=== PATIENT | female | born 1965 | race African-American/Black ===

== ENCOUNTER 2020-01-05 18:57 | Inpatient (IN) | payer OTHER, SELFPAY ==
[2020-01-05] MEDS ORDERED: Ibuprofen 200 MG TAB ONE (19:57)
[2020-01-05] MEDS ORDERED: Ondansetron ODT 4 MG TAB PO PRN (20:31)
--- NOTE | 2020-01-05 23:00 | PDOC.BPN ---
- Brief Progress Note [id number] dictated
[2020-01-05 23:06] VITALS: BMI 29.5
--- NOTE | 2020-01-06 02:11 | HP ---
CHIEF COMPLAINT: Lower abdominal pain. HISTORY OF PRESENT ILLNESS: Ms. Olvera is a 54-year-old female with past medical history of hyperparathyroidism, presents on outside facility with lower abdominal pain. On workup in the emergency room, the patient had leukocytosis and urinary tract infection. The patient also was found to have elevated calcium level of . Septic workup done in the ED. She was given IV ceftriaxone. Started on IV fluids. The patient is being transferred to our medical facility for further management. PAST MEDICAL HISTORY: 1. Hyperparathyroidism. 2. Hypertension. PAST SURGICAL HISTORY: 1. Fibrosed tumor removed two times. 2. Hysterectomy. SOCIAL HISTORY: Denies smoking, alcohol drinking, or drug abuse. FAMILY HISTORY: Reviewed and noncontributory. HOME MEDICATIONS: See home medication reconciliation form for updated medications. ALLERGIES: NO KNOWN ALLERGIES. REVIEW OF SYSTEMS: Review of 14 systems is negative except what is mentioned in history of present illness. PHYSICAL EXAMINATION: GENERAL: The patient is awake, alert, in mild distress. VITAL SIGNS: Blood pressure 134/73, pulse is 120, respiratory rate is 24, temperature 98.5, and oxygen saturation 97% on room air. HEAD AND NECK: Normocephalic, atraumatic. Neck is supple. No JVD. CHEST: Fair bilateral air entry. HEART: S1, S2. Regular, tachycardic. ABDOMEN: Soft. Lower abdominal tenderness. Bowel sounds present. NEUROLOGIC: Awake, alert, and oriented x3. PSYCH: Unable to assess. EXTREMITIES: No clubbing or cyanosis. GENITOURINARY: Positive for suprapubic tenderness. LABORATORY DATA: WBC count 17.3, hemoglobin 10.8, platelets 403. Sodium 141, potassium 4.1, BUN 30, creatinine 3.3, calcium is . ASSESSMENT: 1. Acute urinary tract infection. 2. Hypercalcemia. 3. Hyperparathyroidism. 4. Acute kidney injury/acute renal failure. 5. Hypertension. 6. Tachycardia. PLAN: 1. Admit. 2. Septic workup and clear urine cultures. 3. IV antibiotic. 4. IV fluids. 5. Monitor electrolytes and calcium. 6. Monitor kidney function and urine output. 7. Consider Nephrology consultation in a.m. for evaluation and further management if creatinine remains elevated. 8. Reconcile home medications. 9. DVT prophylaxis as appropriate. 10. Expected length of stay, 2 midnights or more. Job ID: [id number]
[2020-01-06] MEDS: Sodium Chloride 0.9% 1,000 ML IV SCH ×4 (03:19→14:57)
[2020-01-06 05:30] LABS: #Eosinphils 0.1 thou/uL (0.0-0.7); #Lymphocytes 2.5 thou/uL (1.20-3.40); #Monocytes 1.3 thou/uL (0.11-0.59); #Neutrophils 10.8 thou/uL (1.40-6.50); %Basophils 0.1 % (0.0-1.0); %Eosinophils 0.8 % (0.0-10.0); %Monocytes 8.6 % (0.0-10.0); %Neutrophils 73.4 % (42.0-75.0); Hemoglobin 9.6 g/dL (12.0-16.0); Mean Corpuscular HGB CONC 30.3 g/dL (32.0-36.0); Mean Corpuscular Hemoglobin 26.9 pg (27.0-31.0); Mean Corpuscular Volume 88.9 fL (78.0-98.0); Platelet Count 355 thou/uL (130-400); RBC Distribution Width 14.8 % (11.5-14.5); Red Blood Cell (RBC) Count 3.58 mill/uL (4.20-5.40); White Blood Cell (WBC) Count 14.7 thou/uL (4.8-10.8)
[2020-01-06 05:53] LABS: ALT (SGPT) 8 U/L (8-55); AST (SGOT) 12 U/L (5-34); Albumin 3.3 g/dL (3.5-5.0); Alkaline Phosphatase 76 U/L (40-110); Anion Gap 13 mmol/L (10-20); BUN (Urea Nitrogen) 29 mg/dL (9.8-20.1); Bilirubin, Total 0.2 mg/dL (0.2-1.2); Calc. Creatinine Clearance 24 mL/min (70-130); Calcium 11.5 mg/dL (7.8-10.44); Carbon Dioxide 18 mmol/L (22-29); Chloride 119 mmol/L (98-107); Globulin 4.2 g/dL (2.4-3.5); Glucose 115 mg/dL (70-105); Potassium 4.9 mmol/L (3.5-5.1); Protein, Total 7.5 g/dL (6.0-8.3); Sodium 145 mmol/L (136-145)
[2020-01-06] MEDS: cefTRIAXone\\ROCEPHIN 2 GM in Sodium Chloride 0.9% 100 ML IVPB SCH (09:19)
[2020-01-06 09:35] LABS: SARS-CoV-2 MS2 Positive; SARS-CoV-2 N Gene Negative; SARS-CoV-2 S Gene Negative; SARS-CoV-2 by NAA Not Detected (NotDetected); SARS-CoV-2 orf1ab Negative
[2020-01-06 10:11] LABS: Creatinine, Urine 28.7 mg/dL (47-110)
--- NOTE | 2020-01-06 11:06 | ULT ---
Exam: Bilateral renal ultrasound complete: HISTORY: Acute kidney insufficiency COMPARISON: None I FINDINGS: Right kidney: 16.2 x 8.7 x 9.5 cm Left kidney: 13.0 x 7.1 x 8.9 cm Severe bilateral renal hydronephrosis. There is generalized renal cortical thinning and increased cortical echogenicity evidence for nonspec ific chronic renal disease. No solid or cystic renal mass. Unremarkable appearing bladder. IMPRESSION: Marked bilateral renal hydronephrosis with generalized renal cortical thinning and nonspecific increa sed cortical echogenicity.
--- NOTE | 2020-01-06 15:22 | CON ---
DATE OF CONSULTATION: 01/06/2020 SERVICE: Nephrology. REASON FOR CONSULTATION: Hypercalcemia and acute renal failure. REQUESTING PHYSICIAN: Ean Little MD CHIEF COMPLAINT: Lower abdominal pain. HISTORY OF PRESENT ILLNESS: A 54-year-old female with known history of hypertension and hyperparathyroidism, who was admitted due to lower abdominal pain associated with this dysuria and increased urinary frequency. Evaluation in the emergency room showed leukocytosis as well as features of UTI, hence the patient was admitted. She also was found to have hypercalcemia and elevated creatinine necessitating Nephrology consult. There was no history of fever, nausea, or vomiting. The patient also was tachycardic on presentation and was resuscitated with 2 L of normal saline. PAST MEDICAL HISTORY: 1. Hyperparathyroidism. 2. Hypercalcemia. 3. Hypertension. 4. Fibroids. PAST SURGICAL HISTORY: 1. Hysterectomy. 2. Fibroidectomy. FAMILY HISTORY: Significant for hypertension in mother and sister. SOCIAL HISTORY: The patient lives with family. Denied smoking, alcohol, or drug abuse. ALLERGIES: NO KNOWN DRUG ALLERGIES REPORTED. MEDICATIONS: Prior to hospital, medications are as follows; 1. Calcium carbonate 600 mg p.o. daily. 2. Meloxicam 50 mg p.o. daily. 3. Amlodipine 10 mg daily. REVIEW OF SYSTEMS: Twelve-point review of system performed was negative other than pertinent positives and negatives included in the History of Present Illness. PHYSICAL EXAMINATION: VITAL SIGNS: Temperature 98.1, pulse 110, respiratory rate 26, SpO2 of 99% on room air, and blood pressure is 127/67. GENERAL: Comfortable middle-aged female, in no obvious distress. Afebrile. Anicteric. Acyanotic. HEENT: Normocephalic, atraumatic. Oral mucosa is moist. CARDIOVASCULAR: Regular rhythm and rate, but tachycardic. RESPIRATORY: Fair air entry bilaterally with some transmitted breath sounds. No obvious crackle or rhonchi or use of accessory muscles. GASTROINTESTINAL: Full, soft, nondistended with normal bowel sounds. Nontender also. UROGENITAL: Mild bilateral costophrenic angle tenderness noted. EXTREMITIES: Grossly normal looking, atraumatic with no edema or erythema. CENTRAL NERVOUS SYSTEM: Conscious and alert and oriented x3 with appropriate mental status. Cranial nerves II through XII are grossly intact. DIAGNOSTIC DATA: CBC today showed WBC count of 14.7, hemoglobin of 9.6, MCV of 88.9, and platelets of 355. On presentation yesterday to the ER, CBC showed WBC count of 17.3, hemoglobin of 10.8, and platelets of 403. Chemistry today showed sodium 145, potassium 4.9, chloride 119, CO2 of 18 BUN 29, creatinine 3.28, glucose 115, calcium 11.5, and albumin 3.3. On presentation to the hospital on January 04, sodium was 141, potassium 4.1, chloride 109, CO2 of 16, BUN 30, creatinine 3.36, calcium 12.8, and albumin 4.2. Review of medical records showed that the patient had creatinine of 1.09 on August 24, 2018. The patient also had intact PTH of 230.3 on May 15, 2018. Urinalysis on presentation on January 05, 2020, showed yellow cloudy urine with pH of 6.56, specific gravity of 1.020. Urine protein positive, greater than 300 mg/dL. Negative glucose, ketone, nitrite, and bilirubin. Blood was positive and leukocyte esterase was positive. Microscopy showed 7 to 10 rbc and greater than 50 wbc with 4+ bacteria. ASSESSMENT: 1. Acute kidney injury: Simply multifactorial from hemodynamic factors related to hypercalcemia-induced diuresis in a patient taking as well as NSAID-induced nephropathy. The patient is taking meloxicam daily. Obstructive uropathy is a concern given hypercalcemia. 2. Chronic kidney disease, stage 3. 3. Hypertension. 4. Presumed sepsis, given tachycardia and leukocytosis: Most likely related to possible urinary tract infection. 5. Presumed complicated urinary tract infection. 6. Hypercalcemia: Most likely due to hyperparathyroidism. 7. Presumed hyperparathyroidism. 8. Metabolic acidosis. 9. Neck mass: Etiology is unclear. Of course, malignancy remains a concern. PLAN: 1. Agree with aggressive IV fluid therapy. However, we will change the IV fluids from normal saline to bicarb containing IV fluid due to hyperchloremic acidosis. We will also get a repeat PTH as well as urine calcium and urine protein. Renal ultrasound has been ordered. We will re-evaluate this once available. 2. We will also get imaging of the neck with a view to localize in the parathyroids. 3. Further treatment to follow depending on hospital course. Job ID: [id number]
[2020-01-06 15:44] LABS: Anion Gap 14 mmol/L (10-20); BUN (Urea Nitrogen) 28 mg/dL (9.8-20.1); Calc. Creatinine Clearance 24 mL/min (70-130); Carbon Dioxide 17 mmol/L (22-29); Chloride 117 mmol/L (98-107); Glucose 100 mg/dL (70-105); Sodium 144 mmol/L (136-145)
--- NOTE | 2020-01-06 16:14 | CT ---
CT ABDOMEN AND PELVIS WITHOUT IV CONTRAST: Date; 01/06/2020 INDICATIN: Bilateral hydronephrosis noted on renal ultrasound exam of 01/06/2020. FINDINGS: Lung bases clear. Liver, spleen, and pancreas are unremarkable. Adrenal glands normal. Review of kidneys shows severe bilateral hydronephrosis. There is an obstructing calculus in the prox imal left ureter measuring 8-10 mm. There are at least two adjacent calculi in the lower pole collect ing structures of the left ureter, each measuring approximately 6-8 mm. Severe right hydronephrosis with dilated proximal right ureter. There are two adjacent calculi seen i n the distal right ureter best appreciated on coronal imaging. Each of these calculi measure in the 6 -8 mm range. There are two more calculi distally at the right UVJ. The larger is at the UVJ measuring approximately 7.0 mm and another just beyond the UVJ measures in the 5.0 mm range. There is a 1.7-2.0 cm calcification in the lower pole right kidney and there are numerous other small er calcifications in the lower pole right kidney. There are two or three smaller calcifications in th e mid pole right kidney. The urinary bladder is mildly distended and unremarkable. Small bowel loops are normal caliber. Appendix is identified and appears normal. Colon unremarkable. Aorta normal caliber. Nonspecific periaortic lymph nodes are seen. There are increased number and siz e of periaortic lymph nodes with several aortocaval lymph nodes seen measuring 1.0-1.5 cm. There are enlarged lymph nodes in the retroperitoneum seen in both renal regions with a 2.0 cm lymph node on th e right just inferior to the vena cava and at the level of the renal vein. Numerous nonspecific lymph nodes are also seen on the left at this same location at the level of the renal vein. Evidence of a small umbilical hernia. There is a subcutaneous nodule just superior to the umbilicus a long the anterior abdominal wall within the subcutaneous tissues measuring 1.2 cm. Vertebral bodies m aintain height and alignment. Disc bulge with posterior calcification at L4-5 abuts the thecal sac an d results in mild central canal stenosis. IMPRESSION: 1. Severe bilateral hydronephrosis. Bilateral ureteral calculi and renal calculi are described above . 2. Nonspecific retroperitoneal adenopathy most pronounced at the level of the renal veins. POS: OFF
--- NOTE | 2020-01-06 16:57 | PDOC.HOSPP ---
- Subjective Encounter Date: 01/06/20 Subjective: The patient is complaining of bilateral flank pain. - Objective Vital Signs & Weight: Vital Signs (12 hours) Temp Pulse Resp BP Pulse Ox 01/06/20 15:27 98.5 F 113 H 17 131/85 98 01/06/20 12:24 98.3 F 121 H 30 H 135/61 99 01/06/20 08:08 98.1 F 110 H 26 H 127/67 99 Weight Admit Weight 172 lb 3.2 oz Weight 172 lb 3.2 oz Result Diagrams: 01/06/20 05:17 01/06/20 15:17 Hospitalist ROS - Medication Medications: Active Medications Generic Name Dose Route Start Last Admin Trade Name Freq PRN Reason Stop Dose Admin Ceftriaxone Sodium 2 gm/ 100 mls @ 200 mls/hr 01/06/20 09:00 01/06/20 09:19 Sodium Chloride IVPB 100 mls Q24HR ANA Administration Sodium Chloride 10 ml 01/06/20 09:00 01/06/20 09:19 Flush - Normal Saline 10 Ml Syringe IVF 10 ml Q12HR ANA Administration - Exam General Appearance: awake alert ENT: normocephalic atraumatic Neck: supple, no JVD Heart - other findings: Regular tachycardia Respiratory: normal chest expansion, no tachypnea Gastrointestinal: soft, non-tender Extremities: no cyanosis, no clubbing Hosp A/P (1) JOSHUA (acute kidney injury) Code(s): N17.9 - ACUTE KIDNEY FAILURE, UNSPECIFIED Status: Acute (2) Obstructive uropathy Code(s): N13.9 - OBSTRUCTIVE AND REFLUX UROPATHY, UNSPECIFIED Status: Acute (3) Bilateral kidney stones Code(s): N20.0 - CALCULUS OF KIDNEY Status: Acute (4) Hypercalcemia Code(s): E83.52 - HYPERCALCEMIA Status: Acute (5) UTI (urinary tract infection) Status: Acute (6) Hyperparathyroidism Code(s): E21.3 - HYPERPARATHYROIDISM, UNSPECIFIED Status: Acute - Plan The patient symptoms are likely due to hypercalcemia induced by primary hyperparathyroidism. The condition has caused bilateral kidney stones causing urinary obstruction with bilateral hydronephrosis and acute renal failure. Potassium level is 12. Continue IV fluids. Consult urology. The patient does meet the criteria for parathyroidectomy once her acute condition has improved. Continue IV ceftriaxone for UTI.
[2020-01-06] MEDS: Sodium Bicarbonate 50 MEQ in Sodium Chloride 0.45% 1,000 ML IV SCH (17:15)
[2020-01-06] MEDS: Acetaminophen 325 MG TAB PO PRN (17:27)
[2020-01-06] MEDS: HYDROcodone/Acetaminophen 5/325 mg Tablet PO PRN (20:12)
--- NOTE | 2020-01-07 00:39 | CON ---
DATE OF CONSULTATION: 01/06/2020 CONSULTING: Medicine. REASON FOR CONSULTATION: Bilateral ureteral stones with hydronephrosis and renal failure. CHIEF COMPLAINT: "I do not feel well." HISTORY OF PRESENT ILLNESS: Mrs. Olvera is a 54-year-old black female, who initially came to the emergency room due to lower abdominal pain, dysuria, urinary frequency, and tachycardia. She felt heart palpitations and had a generalized feeling of being unwell. She was diffusely achy, but had a significant lower abdominal pain. She thought that she may have an infection and she was not improving after approximately 24 hours, she went to the emergency room. There, she had a lab work demonstrating a white blood cell count of 14,000 and concerns for urinary tract infection. She did not have any fevers during this time. Blood work demonstrated renal failure with a creatinine of 3.6. She was then transferred to the emergency room in [place] and admitted. While undergoing her renal failure workup, she had a renal ultrasound performed as well as lab work demonstrating an elevated calcium level of 11.9 and then subsequently 12. She has started on hydration and a parathyroid level came back at 596. The renal ultrasound demonstrated bilateral hydronephrosis, which was thought to be the source of her renal failure. CT was then ordered after Nephrology was consulted and recommended further imaging. The CT demonstrated the patient did have ureteral stones bilaterally resulting in the hydronephrosis. I was then consulted for further assistance. On my discussion with the patient, she states that she is not aware of any prior history of kidney stones. She has not undergone any previous urologic surgery. She does have a known apparent history of hyperparathyroidism. She thinks she may have had stones in the past, but is never sure about this. She denies any history of recurrent urinary tract infections or voiding difficulties, although she has been recently complaining of more urinary frequency approximately every 2 hours. Currently, her pain is approximately a 4/10. ALLERGIES: NONE. HOME MEDICATIONS: 1. Calcium carbonate daily. 2. Meloxicam daily. 3. Amlodipine 10 mg daily. PAST MEDICAL HISTORY: 1. Hyperparathyroidism. 2. Hypercalcemia. 3. Hypertension. 4. Fibroids. PAST SURGICAL HISTORY: 1. Hysterectomy. 2. Fibroidectomy. FAMILY HISTORY: Significant for hypertension. SOCIAL HISTORY: The patient lives with her family. Denies smoking, alcohol, or illicit drug use. REVIEW OF SYSTEMS: A 12-point review of system was reviewed with the patient and negative other than what was commented on the HPI. PHYSICAL EXAMINATION: VITAL SIGNS: Temperature 98.5, pulse 113, respirations 17, blood pressure 131/85, saturation 98% on room air. GENERAL: No apparent distress, communicative, alert, well nourished, well developed, appears stated age. HEENT: Normocephalic, atraumatic. Pupils are symmetric and round. Sclerae nonicteric. Trachea midline. Moist mucous membranes. CARDIOVASCULAR: Sinus tachycardia. Normal S1, S2. Symmetric pulses. RESPIRATORY: Nonlabored breathing. Symmetric expansion. LUNGS: Clear anteriorly. ABDOMEN: Soft, nondistended. Mild tenderness to palpation in the lower abdominal quadrants bilaterally and mild bilateral flank pain. No obvious organomegaly or hernias. : Deferred at this time. EXTREMITIES: No clubbing, cyanosis, or edema. MUSCULOSKELETAL: No joint deformities or joint erythema noted. No joint tenderness. NEUROLOGIC: Cranial nerves 2 through 12 appear grossly intact. No focal sensory motor deficits identified. PSYCHIATRIC: Alert and oriented x3. Appropriate mood and affect. LABORATORY EVALUATION: The full set of labs are in the [facility] system, which I have reviewed. Of note, the patient's white count is 14.7 with a creatinine of currently 3.26. Parathyroid hormone is 569 with vitamin D, which is suppressed at 21. Calcium is currently 12. Urinalysis demonstrates 7 to 10 red cells, 4+ bacteria with 4 to 6 squamous cells, large blood, nitrite negative, leukocyte esterase large. Urine culture apparently has not been collected, but blood cultures are negative bilaterally. CT from January 05 demonstrates severe bilateral hydronephrosis with bilateral ureteral calculi and renal calculi measuring approximately 6 to 8 mm in the distal right ureter as well as a 2 cm calcification in the lower pole of the right kidney and a 10 mm stone in the proximal left ureter as well as some additional renal calculi in the 6 to 8 mm range as well. ASSESSMENT AND PLAN: A 54-year-old black female with hyperparathyroidism and current hypercalcemia with acute renal failure along with bilateral hydronephrosis secondary to bilateral ureteral calculi and nephrolithiasis. This is a fairly urgent situation, which needs to be addressed quickly. I am not sure that she actually has a urinary tract infection given that her urine is heavily contaminated with squamous cells, although the bacteria is a little concerning. I would recommend she be started on antibiotics. The patient just completed an extremely large meal. I was planning to do the case urgently today, but the patient is in minimal pain and currently appears completely stable except her tachycardia and she remains afebrile, so I do not think that anything needs to be done immediately unless she starts becoming febrile or exhibits signs and symptoms of worsening infection, at which point I would recommend that she go emergently for cystoscopy and bilateral ureteral stent placement. Otherwise, I would like her to be n.p.o. after midnight and plan cystoscopy with bilateral stents in the laser engraver, so that we can decompress both kidneys. We will treat empirically for an infection, although again I am not entirely sure that she has an infection at this time. I went over the procedure with her in detail including risks and benefits, risks which include but are not limited to bleeding, infection, damage to the ureters, and inability to pass the stent. She understands these risks and wishes to proceed forward. I have also counseled extensively on the risk of retained stents and she promises me that she will follow up with me as an outpatient, so that we can ultimately remove her stents and her kidney stones. RECOMMENDATIONS: 1. N.p.o. after midnight. 2. Antibiotics currently. 3. To OR in the morning for cystoscopy and bilateral ureteral stent placement. 4. We will plan for definitive outpatient ureteroscopy and laser lithotripsy after renal function has normalized and she has completed her antibiotics. 5. The patient can be discharged after stents once she is deemed medically stable by the hospitalist team. Job ID: [id number] MTDD
[2020-01-07] MEDS: Sodium Bicarbonate 50 MEQ in Sodium Chloride 0.45% 1,000 ML IV SCH ×2 (02:53→18:39)
[2020-01-07 05:56] LABS: Hemoglobin 9.7 g/dL (12.0-16.0); Mean Corpuscular HGB CONC 30.3 g/dL (32.0-36.0); Mean Corpuscular Hemoglobin 26.9 pg (27.0-31.0); Mean Corpuscular Volume 88.5 fL (78.0-98.0); Mean Platelet Volume 7.2 fL (7.4-10.4); Platelet Count 383 thou/uL (130-400); RBC Distribution Width 14.7 % (11.5-14.5); Red Blood Cell (RBC) Count 3.63 mill/uL (4.20-5.40); White Blood Cell (WBC) Count 12.1 thou/uL (4.8-10.8)
[2020-01-07 06:14] LABS: Anion Gap 15 mmol/L (10-20); BUN (Urea Nitrogen) 29 mg/dL (9.8-20.1); Calc. Creatinine Clearance 25 mL/min (70-130); Calcium 11.6 mg/dL (7.8-10.44); Carbon Dioxide 17 mmol/L (22-29); Chloride 118 mmol/L (98-107); Glucose 75 mg/dL (70-105); Potassium 4.3 mmol/L (3.5-5.1); Sodium 146 mmol/L (136-145)
[2020-01-07 06:26] LABS: Band 7 % (5-11); Eosinophils 2 % (0-10); Lymphocytes 22 % (21-51); MDiff Complete? YES; Monocytes 6 % (0-10); Neutrophil 63 % (42-75)
--- NOTE | 2020-01-07 07:45 | PDOC.NEPPN ---
- Subjective Encounter Date: 01/07/20 Encounter Time: 07:43 Subjective: Seen in follow up for JOSHUA and hypercalcemia. Feeling better, No fever or nausea. For cystoscopy and stent placement. - Objective Vital Signs & Weight: Vital Signs (12 hours) Temp Pulse Resp BP BP Pulse Ox 01/07/20 07:00 98.4 F 129 H 12 139/76 98 01/07/20 02:55 98.2 F 102 H 18 143/73 H 99 01/06/20 23:00 98.1 F 95 16 118/57 L 95 Weight Admit Weight 172 lb 3.2 oz Weight 172 lb 3.2 oz Result Diagrams: 01/07/20 05:35 01/07/20 05:35 Nephrology ROS - Medication Medications: Active Medications Generic Name Dose Route Start Last Admin Trade Name Freq PRN Reason Stop Dose Admin Acetaminophen 650 mg 01/05/20 20:31 01/06/20 17:27 Acetaminophen 325 Mg Tab PO 650 mg Q4H PRN Administration Headache/Fever/Mild Pain (1-3) Hydrocodone Bitart/Acetaminophen 1 tab 01/06/20 19:54 01/06/20 20:12 Hydrocodone/Acetaminophen 5/325 Mg Tablet PO 1 tab Q4H PRN Administration Moderate Pain (4-6) Ceftriaxone Sodium 2 gm/ 100 mls @ 200 mls/hr 01/06/20 09:00 01/06/20 09:19 Sodium Chloride IVPB 100 mls Q24HR ANA Administration Sodium Bicarbonate 50 meq/ 1,050 mls @ 150 mls/hr 01/06/20 14:15 01/07/20 02:53 Sodium Chloride IV 1,050 mls INF ANA Administration Sodium Chloride 10 ml 01/06/20 09:00 01/06/20 20:13 Flush - Normal Saline 10 Ml Syringe IVF Not Given Q12HR ANA - Exam General Appearance: awake alert Eye: PERRL, anicteric sclera ENT: normocephalic atraumatic, moist mucosa Neck: supple, no JVD Neck - other findings: Left neck fullness noted Respiratory: no wheezes, no rales, no ronchi, normal chest expansion Cardiovascular: RRR Gastrointestinal: soft, non-tender, non-distended, normal bowel sounds Extremities: no edema Neurological: CN's grossly intact, no focal deficits PSYCH: A&O x 3 Nephrology Results - Labs Result Diagrams: 01/07/20 05:35 01/07/20 05:35 Lab results: WBC 12.1 thou/uL (4.8-10.8) H 01/07/20 05:35 Hgb 9.7 g/dL (12.0-16.0) L 01/07/20 05:35 Hct 32.1 % (36.0-47.0) L 01/07/20 05:35 MCV 88.5 fL (78.0-98.0) 01/07/20 05:35 Plt Count 383 thou/uL (130-400) 01/07/20 05:35 Neutrophils % 73.4 % (42.0-75.0) 01/06/20 05:17 Band Neuts % (Manual) 7 % (5-11) 01/07/20 05:35 Sodium 146 mmol/L (136-145) H 01/07/20 05:35 Potassium 4.3 mmol/L (3.5-5.1) 01/07/20 05:35 Chloride 118 mmol/L (98-107) H 01/07/20 05:35 Carbon Dioxide 17 mmol/L (22-29) L 01/07/20 05:35 BUN 29 mg/dL (9.8-20.1) H 01/07/20 05:35 Creatinine 3.17 mg/dL (0.6-1.1) H 01/07/20 05:35 Glucose 75 mg/dL (70-105) 01/07/20 05:35 Calcium 11.6 mg/dL (7.8-10.44) H 01/07/20 05:35 Total Bilirubin 0.2 mg/dL (0.2-1.2) 01/06/20 05:17 AST 12 U/L (5-34) 01/06/20 05:17 ALT 8 U/L (8-55) 01/06/20 05:17 Alkaline Phosphatase 76 U/L (40-110) 01/06/20 05:17 Serum Total Protein 7.5 g/dL (6.0-8.3) 01/06/20 05:17 Albumin 3.3 g/dL (3.5-5.0) L 01/06/20 05:17 Sodium 146 mmol/L (136-145) H 01/07/20 05:35 Potassium 4.3 mmol/L (3.5-5.1) 01/07/20 05:35 Chloride 118 mmol/L (98-107) H 01/07/20 05:35 Carbon Dioxide 17 mmol/L (22-29) L 01/07/20 05:35 Anion Gap 15 mmol/L (10-20) 01/07/20 05:35 BUN 29 mg/dL (9.8-20.1) H 01/07/20 05:35 Creatinine 3.17 mg/dL (0.6-1.1) H 01/07/20 05:35 Glucose 75 mg/dL (70-105) 01/07/20 05:35 Calcium 11.6 mg/dL (7.8-10.44) H 01/07/20 05:35 Albumin 3.3 g/dL (3.5-5.0) L 01/06/20 05:17 Nephrology AP PN - Plan JOSHUA: Due to hemodynamic factors and obstructive uropathy. Hypercalcemia: Due to hyperparathyroidism. Presumed primary hyperparathyroidism. HTN Nephrolithiasis bilaterally with obstruction Bilateral severe hydronephrosis Metabolic acidosis Proteinuria Anemia in CKD Plan Continue IVF Await 24 urine collection for calcium, protein and creatinine For cystoscopy and stent placement by urology. Awaiting neck imaging.
[2020-01-07] MEDS ORDERED: Sodium Chloride 0.9% 100 ML ONE (08:40)
[2020-01-07] MEDS ORDERED: cefTRIAXone\\ROCEPHIN 2 GM VIAL ONE (08:40)
[2020-01-07] MEDS ORDERED: Fentanyl 100 MCG/2 ML VIAL ONE (09:35)
[2020-01-07] MEDS ORDERED: Promethazine HCl 25 MG/ML VIAL IM PRN (10:49)
[2020-01-07] MEDS ORDERED: Ondansetron HCl/PF 4 MG/2 ML Vial IVP PRN (10:49)
[2020-01-07] MEDS ORDERED: Meperidine HCl/PF 25 MG/ML VIAL SLOW IVP PRN (10:49)
[2020-01-07] MEDS ORDERED: Promethazine HCl 25 MG/ML VIAL SLOW IVP PRN (10:49)
--- NOTE | 2020-01-07 11:43 | OP ---
DATE OF PROCEDURE: 01/07/2020 SERVICE: Urology. PREOPERATIVE DIAGNOSIS: Bilateral ureteral obstruction from ureteral stones with acute kidney injury. POSTOPERATIVE DIAGNOSIS: Bilateral ureteral stones with acute kidney injury and mild urethral stricture disease. PROCEDURE PERFORMED: Cystoscopy with bilateral ureteral stent placement and right ureteral basket extraction of stone. INDICATIONS FOR PROCEDURE: Ms. Mares is a 54-year-old white female with bilateral ureteral calculi and acute kidney injury with a creatinine up to 3.5. She came in tachycardia with evidence of hyperparathyroidism with hypercalcemia and its calcium level of 12. Her parathyroid level was 596. She does have multiple large calculi in both kidneys as well as ureteral stones bilaterally. I had recommended urgent ureteral stenting to decompress her kidneys and allow return of her renal function. Given that she does have a little bit of a white count and bacteria in her urine, even though it was likely a contaminant, I did not recommend ureteroscopy at this time. Risks and benefits were discussed with the patient, she has agreed to proceed forward. DESCRIPTION OF PROCEDURE: After identification of armband and verification of consent, the patient was brought back to the operating room, where she underwent general anesthesia with an LMA. She was then placed in dorsal lithotomy position and prepped and draped in usual sterile fashion. After appropriate time-out, a 22-Nepalese rigid cystoscope was attempted to be introduced per urethra. However, it was noted that the patient did have mild meatal stenosis, which precluded entry of the cystoscope using female sounds. The urethra was dilated from 20-Nepalese to 24-Nepalese to allow adequate entry of the cystoscope. The inspection of the bladder revealed a normal-appearing bladder with cystitis glandularis only near the bladder neck and trigone. Both ureters were in the orthotopic location. There was a stone emanating from the right ureteral orifice , but not completely passed. We elected to start on the left side, where a 0.035 Sensor wire was attempted to pass into the kidney. The stone was fluoroscopically visible in the mid ureter and attempts to pass the stone were unsuccessful using the Sensor wire. Therefore, a 0.035 angled Glidewire was used, which was able to be navigated past the stone into the renal pelvis. During the process of placing the Glidewire, the stone in the left ureter was pushed back up into the renal pelvis. A 6 x 26 double-J stent was advanced over the Glidewire into the renal pelvis and the wire removed leaving a good curl in the kidney and a good curl in the bladder. Attention was then turned to the right side, which had the ureteral stone. Using a 1.9-Nepalese ZeroTip Nitinol basket, the basket was introduced just alongside the stone and the basket opened. The basket was able to snare the stone and removed in its entirety and this was removed and sent off for stone analysis. Immediately, there were 2 to 3 additional stones which came out from behind the removed ureteral stone on the right side. These were then extracted out using the cystoscope. A 0.035 Sensor wire was then introduced back into the right ureteral orifice and introduced up to the level of renal pelvis. There was some mild difficulty initially in getting the wire to go into the right ureteral orifice, which indicates that either there is edema in that location versus persistent impacted stone, which has not yet been discovered. In either case, I did elect to place a stent on this side. A 6 x 24 double-J stent was introduced on the right side up to the level of renal pelvis and the wire removed leaving a good curl in the kidney and a good curl in the bladder. The bladder was then emptied and the cystoscope removed. The patient was then awakened, taken to PACU for recovery in stable condition. COMPLICATIONS: None. ESTIMATED BLOOD LOSS: Minimal. RETAINED TUBE AND DRAINS: Bilateral ureteral stents, 6 x 26 on the left, 6 x 24 on the right. SPECIMENS: Stone for stone analysis. DISPOSITION: The patient will be admitted back to the hospital. We will plan for monitoring of her creatinine and if her creatinine comes back down to normal, from a urologic standpoint, she can be discharged. I have expressly counseled her and her sister that she does need to follow up with me on an outpatient basis to avoid significant damage to her kidneys and ureters from retained stents. We will plan for removal of the stones once her renal function has improved. Job ID: [id number]
[2020-01-07] MEDS ORDERED: Ondansetron PF 4 MG/2 ML Vial ONE (12:00)
[2020-01-07] MEDS ORDERED: PROPOFOL 200 MG/20 ML VIAL ONE (12:00)
[2020-01-07] MEDS ORDERED: Dexamethasone 20 MG/5 ML VIAL ONE (12:00)
[2020-01-07] MEDS ORDERED: Lidocaine 1% PF 5 ML VIAL ONE (12:00)
[2020-01-07] MEDS ORDERED: PHENYLEPHRINE-NS 100 MCG/ML 10 ML SYRINGE ONE (12:00)
[2020-01-07] MEDS: cefTRIAXone\\ROCEPHIN 2 GM in Sodium Chloride 0.9% 100 ML IVPB SCH (12:18)
[2020-01-07] MEDS: HYDROcodone/Acetaminophen 5/325 mg Tablet PO PRN ×2 (14:01→20:21)
[2020-01-07] MEDS: Oxybutynin 5 MG TAB PO PRN ×2 (14:02→20:21)
--- NOTE | 2020-01-07 20:52 | PDOC.HOSPP ---
- Subjective Encounter Date: 01/07/20 Encounter Time: 08:00 Subjective: F/u: kidney stones The patient states she is feeling well. She is able to urinate now. She had bilateral stent placement today. She reported some bladder spasms that resolved with pain medicine The patient reports history of hyperparathyroidism for two years. She states she saw her primary doctor who told her to go to the ER because her heart rate was high - Objective Vital Signs & Weight: Vital Signs (12 hours) Temp Pulse Resp BP Pulse Ox 01/07/20 15:48 97.7 F 99 16 133/72 99 01/07/20 11:43 98.4 F 99 20 149/66 H 99 Weight Admit Weight 172 lb 3.2 oz Weight 172 lb 3.2 oz I&O: 01/06/20 01/07/20 01/08/20 06:59 06:59 06:59 Intake Total 3560 Output Total 1700 Balance 1860 Result Diagrams: 01/07/20 05:35 01/07/20 05:35 Hospitalist ROS - Review of Systems Constitutional: denies: fever, chills - Medication Medications: Active Medications Generic Name Dose Route Start Last Admin Trade Name Freq PRN Reason Stop Dose Admin Acetaminophen 650 mg 01/05/20 20:31 01/06/20 17:27 Acetaminophen 325 Mg Tab PO 650 mg Q4H PRN Administration Headache/Fever/Mild Pain (1-3) Hydrocodone Bitart/Acetaminophen 1 tab 01/06/20 19:54 01/07/20 20:21 Hydrocodone/Acetaminophen 5/325 Mg Tablet PO 1 tab Q4H PRN Administration Moderate Pain (4-6) Ceftriaxone Sodium 2 gm/ 100 mls @ 200 mls/hr 01/06/20 09:00 01/07/20 12:18 Sodium Chloride IVPB Not Given Q24HR ANA Sodium Bicarbonate 50 meq/ 1,050 mls @ 150 mls/hr 01/06/20 14:15 01/07/20 18:39 Sodium Chloride IV 1,050 mls INF ANA Administration Oxybutynin Chloride 5 mg 01/07/20 12:19 01/07/20 20:21 Oxybutynin 5 Mg Tab PO 5 mg TID PRN Administration Bladder Spasms Sodium Chloride 10 ml 01/06/20 09:00 01/07/20 20:21 Flush - Normal Saline 10 Ml Syringe IVF Not Given Q12HR ANA - Exam General Appearance: NAD, awake alert General - other findings: obese Eye: PERRL, anicteric sclera ENT: normocephalic atraumatic, no oropharyngeal lesions Neck: no JVD Heart: RRR, no murmur, no gallops, no rubs Respiratory: CTAB, no wheezes, no rales, no ronchi Gastrointestinal: soft, non-tender, non-distended, normal bowel sounds Extremities: no cyanosis, no clubbing, no edema Skin: normal turgor, no lesions, no rashes Neurological: cranial nerve grossly intact, normal sensation to touch, no weakness Hosp A/P - Plan This is a 54 year old male with hyperparathyroidism who presented to the ER with abdominal pain. She was found to have severe bilateral hydronephrosis and hypercalcemia #Bilateral renal calculi with obstructive hydronephrosis #Urethral stricture - urology consulted, patient had bilateral stent placement today and right ureteral basket extraction of stone - kidney stone will be removed once kidney function is improved - check UA . Started IV ceftriaxone empirically - oxybutynin prn for bladder spasms Hypercalcemia secondary to hyperparathyroidism - calcium improving to 11, will monitor Hyperparathyroidism - NM parathyroid scan pending and 24 hour urine collection #Acute Kidney Injury- secondary to obstructive hydronephrosis #Hypernatremia - creatinine improving to 3.18. Nephro is following - continue 1/2 NS with bicarb. Sodium is up to 146, will repeat BMP tomorrow Leukocytosis - WBC improving to 12, continue IV ceftriaxone. Check UA and urine culture Anemia - stable, hemoglobin 9
[2020-01-08] MEDS: Cepastat Lozenges 1 LOZ PO PRN ×2 (00:10→08:35)
[2020-01-08 00:42] LABS: Anion Gap 15 mmol/L (10-20); Carbon Dioxide 19 mmol/L (22-29); Chloride 110 mmol/L (98-107); Magnesium 1.9 mg/dL (1.6-2.6); Potassium 4.2 mmol/L (3.5-5.1); Sodium 140 mmol/L (136-145)
[2020-01-08 02:27] LABS: Hemoglobin 9.1 g/dL (12.0-16.0); Mean Corpuscular HGB CONC 30.6 g/dL (32.0-36.0); Mean Corpuscular Hemoglobin 27.3 pg (27.0-31.0); Mean Platelet Volume 7.1 fL (7.4-10.4); Platelet Count 410 thou/uL (130-400); RBC Distribution Width 14.8 % (11.5-14.5); Red Blood Cell (RBC) Count 3.35 mill/uL (4.20-5.40); White Blood Cell (WBC) Count 13.7 thou/uL (4.8-10.8)
[2020-01-08 02:51] LABS: Anion Gap 15 mmol/L (10-20); BUN (Urea Nitrogen) 31 mg/dL (9.8-20.1); Calc. Creatinine Clearance 29 mL/min (70-130); Carbon Dioxide 20 mmol/L (22-29); Chloride 112 mmol/L (98-107); Glucose 128 mg/dL (70-105); Potassium 4.5 mmol/L (3.5-5.1); Sodium 142 mmol/L (136-145)
[2020-01-08] MEDS: Sodium Bicarbonate 50 MEQ in Sodium Chloride 0.45% 1,000 ML IV SCH ×3 (02:56→22:44)
[2020-01-08] MEDS: Oxybutynin 5 MG TAB PO PRN ×2 (08:39→20:05)
[2020-01-08] MEDS: HYDROcodone/Acetaminophen 5/325 mg Tablet PO PRN (08:39)
[2020-01-08] MEDS: cefTRIAXone\\ROCEPHIN 2 GM in Sodium Chloride 0.9% 100 ML IVPB SCH (09:50)
--- NOTE | 2020-01-08 10:58 | PDOC.HOSPP ---
- Subjective Encounter Date: 01/08/20 Encounter Time: 10:56 Subjective: F/u: s/p stent placement, tachycardia S/p stent placement -The patient is feeling better. She denies abdominal pain, nausea or vomiting. She has intermittent bladder spasms relieved by oxybutynin . Her flow of urine was intermittent prior to coming to the hospital but it has improved some Palpitations - The patient also reports some palpitations intermittently, feels there is a fluttering sensation in her chest. She has bee having shortness of breath on exertion lately . Per nursing patient had second degree AV block and some episodes of bradycardia as well. Heart rate was 120 this morning but currently sinus at 80 Hypercalcemia - patient has never had kidney stone before. Sister has hypothyroidism. Father had a brain tumor but noone else with parathyroid problem sor kidney stone. NM Parathyroid scan cannot be done until tomorrow - Objective Vital Signs & Weight: Vital Signs (12 hours) Temp Pulse Resp BP BP Pulse Ox 01/08/20 08:39 100 01/08/20 07:38 98.2 F 67 16 144/68 H 100 01/08/20 03:15 98.1 F 79 18 127/63 97 01/08/20 00:00 97.7 F 72 18 117/62 99 Weight Admit Weight 172 lb 3.2 oz Weight 172 lb 3.2 oz I&O: 01/07/20 01/08/20 01/09/20 06:59 06:59 06:59 Intake Total 3560 1960 Output Total 1700 1200 Balance 1860 760 Result Diagrams: 01/08/20 02:08 01/08/20 02:08 Hospitalist ROS - Review of Systems Constitutional: denies: fever, chills - Medication Medications: Active Medications Generic Name Dose Route Start Last Admin Trade Name Freq PRN Reason Stop Dose Admin Acetaminophen 650 mg 01/05/20 20:31 01/06/20 17:27 Acetaminophen 325 Mg Tab PO 650 mg Q4H PRN Administration Headache/Fever/Mild Pain (1-3) Hydrocodone Bitart/Acetaminophen 1 tab 01/06/20 19:54 01/08/20 08:39 Hydrocodone/Acetaminophen 5/325 Mg Tablet PO 1 tab Q4H PRN Administration Moderate Pain (4-6) Ceftriaxone Sodium 2 gm/ 100 mls @ 200 mls/hr 01/06/20 09:00 01/08/20 09:50 Sodium Chloride IVPB 100 mls Q24HR ANA Administration Sodium Bicarbonate 50 meq/ 1,050 mls @ 150 mls/hr 01/06/20 14:15 01/08/20 02:56 Sodium Chloride IV 1,050 mls INF ANA Administration Oxybutynin Chloride 5 mg 01/07/20 12:19 01/08/20 08:39 Oxybutynin 5 Mg Tab PO 5 mg TID PRN Administration Bladder Spasms Sodium Chloride 10 ml 01/06/20 09:00 01/08/20 09:50 Flush - Normal Saline 10 Ml Syringe IVF 10 ml Q12HR ANA Administration Throat Lozenges 1 lorena 01/07/20 23:30 01/08/20 08:35 Cepastat Lozenges 1 Lorena PO 1 lorena Q2H PRN Administration Sore Throat - Exam General Appearance: NAD, awake alert Eye: PERRL, anicteric sclera ENT: normocephalic atraumatic, no oropharyngeal lesions Neck: no JVD Heart: no murmur, no gallops, no rubs Heart - other findings: sinus tachycardia Respiratory: CTAB, no wheezes, no rales, no ronchi Gastrointestinal: soft, non-tender, non-distended, normal bowel sounds Extremities: no cyanosis, no clubbing, no edema Skin: normal turgor, no lesions, no rashes Neurological: cranial nerve grossly intact, normal sensation to touch, no focal deficits, no new deficit Musculoskeletal: normal tone, normal strength, no muscle wasting Psychiatric: normal affect, normal behavior, A&O x 3 Hosp A/P - Plan This is a 54 year old male with hyperparathyroidism who presented to the ER with abdominal pain. She was found to have severe bilateral hydronephrosis and hypercalcemia #Bilateral renal calculi with obstructive hydronephrosis #Urethral stricture - urology consulted, patient had bilateral stent placement 01/07 and right ureteral basket extraction of stone - kidney stone will be removed once kidney function is improved - check UA . Started IV ceftriaxone empirically day 2 - oxybutynin prn for bladder spasms - will add flomax Hypercalcemia secondary to hyperparathyroidism - calcium improving to 11, will monitor. NM parathyroid scan will be done tomorrow - continue IV fluids for nephrology SIRS/Sepsis - possibly from UTI - WBC 13, heart rate elevated. UA pending - will check blood cultures and chest Xray #Acute Kidney Injury- secondary to obstructive hydronephrosis #Hypernatremia - creatinine improving to 2.74. continue 1/2 NS with bicarb. Sodium is 142 Tachy/alfonso syndrome ? - has sinus tachycardia, but episode of second degree AV block on telemetr - ECHO ordered - cardiology has been consulted . Troponins negative Anemia - stable, hemoglobin 9.1
--- NOTE | 2020-01-08 11:07 | PDOC.NEPPN ---
- Subjective Encounter Date: 01/08/20 Subjective: Feeling better. No fever. S/p cystoscopy with bilateral stent placement - Objective Vital Signs & Weight: Vital Signs (12 hours) Temp Pulse Resp BP BP Pulse Ox 01/08/20 08:39 100 01/08/20 07:38 98.2 F 67 16 144/68 H 100 01/08/20 03:15 98.1 F 79 18 127/63 97 01/08/20 00:00 97.7 F 72 18 117/62 99 Weight Admit Weight 172 lb 3.2 oz Weight 172 lb 3.2 oz I&O: 01/07/20 01/08/20 01/09/20 06:59 06:59 06:59 Intake Total 3560 1960 Output Total 1700 1200 Balance 1860 760 Result Diagrams: 01/08/20 02:08 01/08/20 02:08 Nephrology ROS - Medication Medications: Active Medications Generic Name Dose Route Start Last Admin Trade Name Freq PRN Reason Stop Dose Admin Acetaminophen 650 mg 01/05/20 20:31 01/06/20 17:27 Acetaminophen 325 Mg Tab PO 650 mg Q4H PRN Administration Headache/Fever/Mild Pain (1-3) Hydrocodone Bitart/Acetaminophen 1 tab 01/06/20 19:54 01/08/20 08:39 Hydrocodone/Acetaminophen 5/325 Mg Tablet PO 1 tab Q4H PRN Administration Moderate Pain (4-6) Ceftriaxone Sodium 2 gm/ 100 mls @ 200 mls/hr 01/06/20 09:00 01/08/20 09:50 Sodium Chloride IVPB 100 mls Q24HR ANA Administration Sodium Bicarbonate 50 meq/ 1,050 mls @ 150 mls/hr 01/06/20 14:15 01/08/20 02:56 Sodium Chloride IV 1,050 mls INF ANA Administration Oxybutynin Chloride 5 mg 01/07/20 12:19 01/08/20 08:39 Oxybutynin 5 Mg Tab PO 5 mg TID PRN Administration Bladder Spasms Sodium Chloride 10 ml 01/06/20 09:00 01/08/20 09:50 Flush - Normal Saline 10 Ml Syringe IVF 10 ml Q12HR ANA Administration Throat Lozenges 1 lorena 01/07/20 23:30 01/08/20 08:35 Cepastat Lozenges 1 Lorena PO 1 lorena Q2H PRN Administration Sore Throat - Exam General Appearance: awake alert Eye: anicteric sclera ENT: normocephalic atraumatic Neck: supple, no JVD Neck - other findings: Left upper neck swelling/fullness Respiratory: CTAB, no tachypnea Cardiovascular: RRR Gastrointestinal: soft, non-tender, non-distended, normal bowel sounds Extremities: no cyanosis, no edema Neurological: CN's grossly intact, no focal deficits PSYCH: A&O x 3 Nephrology Results - Labs Result Diagrams: 01/08/20 02:08 01/08/20 02:08 Lab results: WBC 13.7 thou/uL (4.8-10.8) H 01/08/20 02:08 Hgb 9.1 g/dL (12.0-16.0) L 01/08/20 02:08 Hct 29.8 % (36.0-47.0) L 01/08/20 02:08 MCV 89.0 fL (78.0-98.0) 01/08/20 02:08 Plt Count 410 thou/uL (130-400) H 01/08/20 02:08 Neutrophils % 73.4 % (42.0-75.0) 01/06/20 05:17 Band Neuts % (Manual) 7 % (5-11) 01/07/20 05:35 Sodium 142 mmol/L (136-145) 01/08/20 02:08 Potassium 4.5 mmol/L (3.5-5.1) 01/08/20 02:08 Chloride 112 mmol/L (98-107) H 01/08/20 02:08 Carbon Dioxide 20 mmol/L (22-29) L 01/08/20 02:08 BUN 31 mg/dL (9.8-20.1) H 01/08/20 02:08 Creatinine 2.74 mg/dL (0.6-1.1) H 01/08/20 02:08 Glucose 128 mg/dL (70-105) H 01/08/20 02:08 Calcium 11.0 mg/dL (7.8-10.44) H 01/08/20 02:08 Total Bilirubin 0.2 mg/dL (0.2-1.2) 01/06/20 05:17 AST 12 U/L (5-34) 01/06/20 05:17 ALT 8 U/L (8-55) 01/06/20 05:17 Alkaline Phosphatase 76 U/L (40-110) 01/06/20 05:17 Troponin I Less than 0.010 ng/mL (< 0.028) 01/08/20 02:08 Serum Total Protein 7.5 g/dL (6.0-8.3) 01/06/20 05:17 Albumin 3.3 g/dL (3.5-5.0) L 01/06/20 05:17 Sodium 142 mmol/L (136-145) 01/08/20 02:08 Potassium 4.5 mmol/L (3.5-5.1) 01/08/20 02:08 Chloride 112 mmol/L (98-107) H 01/08/20 02:08 Carbon Dioxide 20 mmol/L (22-29) L 01/08/20 02:08 Anion Gap 15 mmol/L (10-20) 01/08/20 02:08 BUN 31 mg/dL (9.8-20.1) H 01/08/20 02:08 Creatinine 2.74 mg/dL (0.6-1.1) H 01/08/20 02:08 Glucose 128 mg/dL (70-105) H 01/08/20 02:08 Calcium 11.0 mg/dL (7.8-10.44) H 01/08/20 02:08 Magnesium 1.9 mg/dL (1.6-2.6) 01/07/20 23:58 Albumin 3.3 g/dL (3.5-5.0) L 01/06/20 05:17 Nephrology AP PN - Plan JOSHUA: Due to hemodynamic factors and obstructive uropathy. Creat is trending down. Creat was 1.o in 2019. still at 2.7 currently Hypercalcemia: Due to hyperparathyroidism. Improving with IVF but nt normal as yet Presumed primary hyperparathyroidism. HTN; Control acceptable. Nephrolithiasis bilaterally with obstruction. S/p cystoscopy, extraction of stone on the right and bilateral stent placement Bilateral severe hydronephrosis Metabolic acidosis. persistent Proteinuria Anemia in CKD Left Neck swelling Plan Continue IVF Await 24 urine collection for calcium, protein and creatinine. Follow renal function and electrolytes Awaiting neck imaging. Hopefully to be done tomorrow. General surgery consult contemplated.
[2020-01-08] MEDS ORDERED: Tamsulosin HCl 0.4 MG CAP PO SCH (11:15)
--- NOTE | 2020-01-08 11:46 | RAD ---
EXAM: Chest one view: HISTORY: Tachycardia COMPARISON: 05/09/2018 FINDINGS: Heart size: Within normal limits. Lungs: Clear of acute process. No evidence for confluent lobar pneumonia, significant pleural effusion, acute edema, or pneumothorax , or other significant acute process. IMPRESSION: No significant acute intrathoracic disease. Stable exam.
[2020-01-08 13:51] LABS: 24 Hr Creatinine 1235.1 mg/24 hr (710-1650); Creatinine, Urine 27.6 mg/dL (47-110)
--- NOTE | 2020-01-08 14:23 | CON ---
DATE OF CONSULTATION: 01/08/2020 REASON FOR CONSULTATION: AV block. HISTORY OF PRESENT ILLNESS: Ms. Olvera is a very pleasant 54-year-old woman. She has history of hyperparathyroidism and subsequently developed multiple kidney stones. She required removal of the kidney stones on urgent basis due to renal insufficiency/renal failure. The renal failure is improving now since the renal kidney stones have been removed successfully. She has been on the monitor here. She has had occasional episodes of AV block. There is some concern whether it is Mobitz II, but as would be outline below, it is Mobitz I block with occasional sinus arrhythmia. The patient states she has never had syncope or near syncope. She states that she occasionally feels her heart racing for a short time, but never had a feeling that she is going to faint. She has never been aware of having a slow heart rate. She said she has occasional "gas pains" in her chest, usually it is at night, not exertional. She has had occasional acid reflux symptoms. The patient otherwise has been relatively healthy. She is ultimately planned on having surgery for hyperparathyroidism. PAST MEDICAL HISTORY: She does have history of hypertension. PAST SURGICAL HISTORY: History of hysterectomy. SOCIAL HISTORY: No smoking or alcohol. FAMILY HISTORY: Noncontributory. HOME MEDICATIONS: She was taking, 1. 2. Amlodipine 10 mg a day. 3. Meloxicam. 4. Calcium carbonate. REVIEW OF SYSTEMS: CONSTITUTIONAL: No significant weight gain or loss. VISION: No changes. HEARING: No changes. PULMONARY: No cough or wheezing. CARDIAC: No anginal chest pain. GASTROINTESTINAL: No nausea, vomiting, diarrhea. SKIN: No rashes. NEUROLOGIC: No unilateral weakness or numbness. PSYCHIATRIC: No unusual depression or anxiety. PHYSICAL EXAMINATION: GENERAL: This is a pleasant 54-year-old woman, in no distress. VITAL SIGNS: Blood pressure 139/65, pulse 86 and regular. LUNGS: Clear. CARDIAC: Normal S1, normal S2. There is no murmur, rub, or gallop. ABDOMEN: Soft and nontender. No hepatosplenomegaly. EXTREMITIES: Warm and dry. No clubbing. No cyanosis. There is no edema. SKIN: Warm and dry. PSYCHIATRIC: Mood and affect normal. NEUROLOGIC: Grossly normal. PERTINENT LABORATORY DATA: Her creatinine was up to 3.36, now down to 2.74; her potassium 4.5; calcium was up to 12.8 in the , now down to 11. EKG reveals intermittent episodes of second-degree AV block, type 1. She has a normal QRS. Initial EKG showed sinus tachycardia with normal conduction. There are also some occasional asymptomatic sinus pauses, but nothing over 1.5 seconds that I see here. ASSESSMENT: 1. Second degree AV block, type I Mobitz. 2. History Mobitz I. 3. History of subjective feeling of rapid heart rates. PLAN: 1. We may consider outpatient monitoring when she goes home. She has had some sinus tachycardia that could be what she is feeling. 2. No further intervention for the AV block. No pacemaker, certainly not indicated for this. 3. Outpatient stress testing in view of the chest discomfort, which sounds more likely to be esophageal reflux. This should be done prior to her parathyroid surgery if possible. Job ID: [id number]
--- NOTE | 2020-01-08 14:41 | PRG ---
DATE OF SERVICE: 01/08/2020 SUBJECTIVE: The patient states she is feeling okay. She is having a little bit of flank pain and bladder discomfort from her stents, but she states this is tolerable and otherwise is doing all right. No fevers overnight. OBJECTIVE: VITAL SIGNS: Temperature 98.1, pulse 86, respirations 16, blood pressure 139/65, saturation 96% on room air. GENERAL: No apparent distress. Communicative and alert. CARDIOVASCULAR: Regular rate and rhythm. ABDOMEN: Soft, nontender, and nondistended. Positive bowel sounds. EXTREMITIES: No edema. LABORATORY EVALUATION: The full set of labs are in the [employer] system, which I have reviewed. Of note, the patient's white count is 13.7 and hemoglobin 9.1. Creatinine is decreased down to 2.74. ASSESSMENT AND PLAN: A 54-year-old black female with bilateral ureteral obstruction secondary to bilateral ureteral stone, status post stone extraction on the right as well as bilateral ureteral stent placements. She does have hyperparathyroidism with hypercalcemia. Her creatinine is improving, but continues to remain fairly significantly elevated. Nephrology is continuing to follow. From my standpoint, I do not think anything further needs to be done at this time. I would recommend allowing her renal function to improve for approximately 1 to 2 weeks, at which point we will then plan definitive treatment with ureteroscopy to remove the ureteral stones and renal stones. The largest renal stone on the patient's right may need to be treated with a percutaneous nephrolithotomy as it is much larger, but we can discuss final plans as an outpatient. I will sign off at the current time, but please feel free to re-consult if there are any further questions or concerns. I have explicitly again expressed to the patient the need for followup appointments to ensure that she has not lost to follow up with a retained stent as this could lead to severe renal impairment, damage, or even renal loss and dialysis. Job ID: [id number]
[2020-01-08 16:34] LABS: Bilirubin Negative (Negative); Blood, Urine 3+ (Negative); Clarity Turbid (Clear); Glucose, Urine (Dipstick) Normal (Negative); Ketone, Urine Negative (Negative); Leukocyte 500 Leu/uL (Negative); Nitrite Negative (Negative); Protein, Urine (Dipstick) 70 mg/dL (Neg-Trace); RBC/HPF Greater than 50 HPF (0-3); Specific Gravity, Urine 1.008 (1.002-1.036); Squamous Epithelial 0-3 HPF (0-3); Urobilinogen Normal mg/dL (Less than 2); WBC/HPF 21-50 HPF (0-3); pH, Urine 7.5 (5.0-9.0)
[2020-01-08 16:36] LABS: Unclassified Crystals 2+ HPF (None Seen)
[2020-01-08 16:43] LABS: Bacteria/HPF 2+ HPF (None Seen)
[2020-01-08 16:44] LABS: Urine Culture Reflex Yes Yes
[2020-01-08] MEDS: Acetaminophen 325 MG TAB PO PRN (20:04)
[2020-01-09] MEDS: HYDROcodone/Acetaminophen 5/325 mg Tablet PO PRN ×2 (01:01→07:57)
[2020-01-09] MEDS ORDERED: Amlodipine 5 MG TAB PO SCH (04:15)
[2020-01-09 04:55] LABS: Hemoglobin 9.6 g/dL (12.0-16.0); Mean Corpuscular HGB CONC 29.8 g/dL (32.0-36.0); Mean Corpuscular Hemoglobin 26.4 pg (27.0-31.0); Mean Corpuscular Volume 88.4 fL (78.0-98.0); Mean Platelet Volume 7.5 fL (7.4-10.4); Platelet Count 463 thou/uL (130-400); RBC Distribution Width 14.7 % (11.5-14.5); Red Blood Cell (RBC) Count 3.62 mill/uL (4.20-5.40)
[2020-01-09 05:14] LABS: Anion Gap 16 mmol/L (10-20); BUN (Urea Nitrogen) 24 mg/dL (9.8-20.1); Calc. Creatinine Clearance 37 mL/min (70-130); Carbon Dioxide 18 mmol/L (22-29); Chloride 115 mmol/L (98-107); Glucose 84 mg/dL (70-105); Potassium 3.9 mmol/L (3.5-5.1); Sodium 145 mmol/L (136-145)
[2020-01-09] MEDS: cefTRIAXone\\ROCEPHIN 2 GM in Sodium Chloride 0.9% 100 ML IVPB SCH (07:56)
[2020-01-09] MEDS: Famotidine 20 MG TAB PO SCH (07:57)
[2020-01-09] MEDS: Oxybutynin 5 MG TAB PO PRN ×2 (07:57→20:24)
[2020-01-09] MEDS: Tamsulosin HCl 0.4 MG CAP PO SCH (08:21)
--- NOTE | 2020-01-09 09:40 | PDOC.NEPPN ---
- Subjective Encounter Date: 01/09/20 Subjective: No new problem. For parathyroid scan today. Still on IVF. - Objective Vital Signs & Weight: Vital Signs (12 hours) Temp Pulse Resp BP BP Pulse Ox 01/09/20 07:12 97.8 F 79 16 155/70 H 100 01/09/20 04:16 75 01/09/20 03:50 97.5 F L 75 20 187/81 H 100 01/09/20 00:00 98.2 F 58 L 20 157/78 H 96 Weight Admit Weight 172 lb 3.2 oz Weight 172 lb 3.2 oz I&O: 01/08/20 01/09/20 01/10/20 06:59 06:59 06:59 Intake Total 3560 5245 Output Total 1700 6900 Balance 1860 -1655 Result Diagrams: 01/09/20 04:23 01/09/20 04:23 Nephrology ROS - Medication Medications: Active Medications Generic Name Dose Route Start Last Admin Trade Name Freq PRN Reason Stop Dose Admin Acetaminophen 650 mg 01/05/20 20:31 01/08/20 20:04 Acetaminophen 325 Mg Tab PO 650 mg Q4H PRN Administration Headache/Fever/Mild Pain (1-3) Hydrocodone Bitart/Acetaminophen 1 tab 01/06/20 19:54 01/09/20 07:57 Hydrocodone/Acetaminophen 5/325 Mg Tablet PO 1 tab Q4H PRN Administration Moderate Pain (4-6) Famotidine 20 mg 01/09/20 09:00 01/09/20 07:57 Famotidine 20 Mg Tab PO 20 mg DAILY ANA Administration Ceftriaxone Sodium 2 gm/ 100 mls @ 200 mls/hr 01/06/20 09:00 01/09/20 07:56 Sodium Chloride IVPB 100 mls Q24HR ANA Administration Sodium Bicarbonate 50 meq/ 1,050 mls @ 150 mls/hr 01/06/20 14:15 01/08/20 22:44 Sodium Chloride IV 1,050 mls INF ANA Administration Oxybutynin Chloride 5 mg 01/07/20 12:19 01/09/20 07:57 Oxybutynin 5 Mg Tab PO 5 mg TID PRN Administration Bladder Spasms Sodium Chloride 10 ml 01/06/20 09:00 01/09/20 08:21 Flush - Normal Saline 10 Ml Syringe IVF 10 ml Q12HR ANA Administration Sodium Chloride 10 ml 01/06/20 08:15 01/08/20 11:40 Flush - Normal Saline 10 Ml Syringe IVF 10 ml PRN PRN Administration Saline Flush Tamsulosin HCl 0.4 mg 01/09/20 09:00 01/09/20 08:21 Tamsulosin Hcl 0.4 Mg Cap PO 0.4 mg DAILY ANA Administration Throat Lozenges 1 lorena 01/07/20 23:30 01/08/20 08:35 Cepastat Lozenges 1 Lorena PO 1 lorena Q2H PRN Administration Sore Throat - Exam General Appearance: awake alert Eye: anicteric sclera ENT: normocephalic atraumatic, moist mucosa Neck - other findings: Left sided neck swelling Respiratory: no wheezes, no ronchi, normal chest expansion, no tachypnea Cardiovascular: RRR Gastrointestinal: soft, non-distended, normal bowel sounds, no palpable masses Extremities: no edema Neurological: CN's grossly intact, no focal deficits PSYCH: A&O x 3 Nephrology Results - Labs Result Diagrams: 01/09/20 04:23 01/09/20 04:23 Lab results: WBC 12.0 thou/uL (4.8-10.8) H 01/09/20 04:23 Hgb 9.6 g/dL (12.0-16.0) L 01/09/20 04:23 Hct 32.0 % (36.0-47.0) L 01/09/20 04:23 MCV 88.4 fL (78.0-98.0) 01/09/20 04:23 Plt Count 463 thou/uL (130-400) H 01/09/20 04:23 Neutrophils % 73.4 % (42.0-75.0) 01/06/20 05:17 Band Neuts % (Manual) 7 % (5-11) 01/07/20 05:35 Sodium 145 mmol/L (136-145) 01/09/20 04:23 Potassium 3.9 mmol/L (3.5-5.1) 01/09/20 04:23 Chloride 115 mmol/L (98-107) H 01/09/20 04:23 Carbon Dioxide 18 mmol/L (22-29) L 01/09/20 04:23 BUN 24 mg/dL (9.8-20.1) H 01/09/20 04:23 Creatinine 2.12 mg/dL (0.6-1.1) H 01/09/20 04:23 Glucose 84 mg/dL (70-105) 01/09/20 04:23 Calcium 11.0 mg/dL (7.8-10.44) H 01/09/20 04:23 Total Bilirubin 0.2 mg/dL (0.2-1.2) 01/06/20 05:17 AST 12 U/L (5-34) 01/06/20 05:17 ALT 8 U/L (8-55) 01/06/20 05:17 Alkaline Phosphatase 76 U/L (40-110) 01/06/20 05:17 Troponin I Less than 0.010 ng/mL (< 0.028) 01/08/20 02:08 Serum Total Protein 7.5 g/dL (6.0-8.3) 01/06/20 05:17 Albumin 3.3 g/dL (3.5-5.0) L 01/06/20 05:17 Urine Ketones Negative mg/dL (Negative) 01/08/20 15:20 Urine Blood 3+ (Negative) A 01/08/20 15: Urine Nitrite Negative (Negative) 01/08/20 15:20 Ur Leukocyte Esterase 500 Samuel/uL (Negative) A 01/08/20 15:20 Urine RBC Greater than 50 HPF (0-3) A 01/08/20 15:20 Urine WBC 21-50 HPF (0-3) A 01/08/20 15:20 Ur Squamous Epith Cells 0-3 HPF (0-3) 01/08/20 15:20 Urine Bacteria 2+ HPF (None Seen) A 01/08/20 15:20 Sodium 145 mmol/L (136-145) 01/09/20 04:23 Potassium 3.9 mmol/L (3.5-5.1) 01/09/20 04:23 Chloride 115 mmol/L (98-107) H 01/09/20 04:23 Carbon Dioxide 18 mmol/L (22-29) L 01/09/20 04:23 Anion Gap 16 mmol/L (10-20) 01/09/20 04:23 BUN 24 mg/dL (9.8-20.1) H 01/09/20 04:23 Creatinine 2.12 mg/dL (0.6-1.1) H 01/09/20 04:23 Glucose 84 mg/dL (70-105) 01/09/20 04:23 Calcium 11.0 mg/dL (7.8-10.44) H 01/09/20 04:23 Magnesium 1.9 mg/dL (1.6-2.6) 01/07/20 23:58 Albumin 3.3 g/dL (3.5-5.0) L 01/06/20 05:17 Nephrology AP PN - Plan JOSHUA: Due to hemodynamic factors and obstructive uropathy. Creat is trending down. 2.1 today. Creat was 1.0 in 2019. Hypercalcemia: Due to hyperparathyroidism. Improving with IVF but not normal as yet Presumed primary hyperparathyroidism. HTN; Control acceptable. Nephrolithiasis bilaterally with obstruction. S/p cystoscopy, extraction of stone on the right and bilateral stent placement Bilateral severe hydronephrosis Metabolic acidosis. persistent Proteinuria Anemia in CKD Left Neck swelling Plan Continue sodium bicarbonate. Will increase rate to 200. Follow renal function and electrolytes Awaiting neck imaging. General surgery consult contemplated.
--- NOTE | 2020-01-09 12:13 | NM ---
RADIONUCLIDE PARATHYROID SCAN WITH PLANAR ANS SPECT CT IMAGING: Date: 01/09/2020 HISTORY: Hyperparathyroidism with elevated serum calcium and parathyroid hormone levels. RADIOPHARMACEUTICAL: 25 mCi technetium-99m sestamibi injected intravenously. FINDINGS: There is physiologic activity in the salivary glands, thyroid gland, and visualized portions of the h eart. No abnormal areas of tracer localization are seen. The CT scan demonstrates a 6.0 mm nodular density in the right tracheoesophageal groove. This does no t demonstrate abnormal tracer localization. IMPRESSION: 1. No scintigraphic evidence of parathyroid adenoma. 2. Abnormal finding on the CT scan should be evaluated with a dedicated CT scan of the neck with and without IV contrast using the parathyroid adenoma protocol. POS: XENA
[2020-01-09] MEDS: Sodium Bicarbonate 50 MEQ in Sodium Chloride 0.45% 1,000 ML IV SCH ×2 (14:22→21:34)
[2020-01-09] MEDS: Sodium Bicarbonate Tab 325 MG TAB PO SCH ×2 (15:29→20:17)
--- NOTE | 2020-01-09 17:27 | PDOC.HOSPP ---
- Subjective Encounter Date: 01/09/20 Encounter Time: 12:00 Subjective: F/u: hypercalcemia, JOSHUA The patient denies any abdominal pain ,nausea or vomiting. She is urinating well. - Objective Vital Signs & Weight: Vital Signs (12 hours) Temp Pulse Resp BP Pulse Ox 01/09/20 15:04 98.1 F 94 16 146/67 H 100 01/09/20 11:41 97.6 F 85 17 150/80 H 100 01/09/20 07:12 97.8 F 79 16 155/70 H 100 Weight Admit Weight 172 lb 3.2 oz Weight 172 lb 3.2 oz I&O: 01/08/20 01/09/20 01/10/20 06:59 06:59 06:59 Intake Total 3560 5246 927 Output Total 1700 6900 Balance 1860 -1655 927 Result Diagrams: 01/09/20 04:23 01/09/20 04:23 Hospitalist ROS - Review of Systems Constitutional: denies: fever, chills - Medication Medications: Active Medications Generic Name Dose Route Start Last Admin Trade Name Freq PRN Reason Stop Dose Admin Acetaminophen 650 mg 01/05/20 20:31 01/08/20 20:04 Acetaminophen 325 Mg Tab PO 650 mg Q4H PRN Administration Headache/Fever/Mild Pain (1-3) Hydrocodone Bitart/Acetaminophen 1 tab 01/06/20 19:54 01/09/20 07:57 Hydrocodone/Acetaminophen 5/325 Mg Tablet PO 1 tab Q4H PRN Administration Moderate Pain (4-6) Famotidine 20 mg 01/09/20 09:00 01/09/20 07:57 Famotidine 20 Mg Tab PO 20 mg DAILY ANA Administration Ceftriaxone Sodium 2 gm/ 100 mls @ 200 mls/hr 01/06/20 09:00 01/09/20 07:56 Sodium Chloride IVPB 100 mls Q24HR ANA Administration Sodium Bicarbonate 50 meq/ 1,050 mls @ 200 mls/hr 01/09/20 09:40 01/09/20 14:22 Sodium Chloride IV 1,050 mls INF ANA Administration Oxybutynin Chloride 5 mg 01/07/20 12:19 01/09/20 07:57 Oxybutynin 5 Mg Tab PO 5 mg TID PRN Administration Bladder Spasms Sodium Bicarbonate 1,300 mg 01/09/20 15:00 01/09/20 15:29 Sodium Bicarbonate Tab 325 Mg Tab PO 1,300 mg TID ANA Administration Sodium Chloride 10 ml 01/06/20 09:00 01/09/20 08:21 Flush - Normal Saline 10 Ml Syringe IVF 10 ml Q12HR ANA Administration Sodium Chloride 10 ml 01/06/20 08:15 01/08/20 11:40 Flush - Normal Saline 10 Ml Syringe IVF 10 ml PRN PRN Administration Saline Flush Tamsulosin HCl 0.4 mg 01/09/20 09:00 01/09/20 08:21 Tamsulosin Hcl 0.4 Mg Cap PO 0.4 mg DAILY ANA Administration Throat Lozenges 1 lorena 01/07/20 23:30 01/08/20 08:35 Cepastat Lozenges 1 Lorena PO 1 lorena Q2H PRN Administration Sore Throat - Exam General Appearance: NAD, awake alert Eye: PERRL, anicteric sclera ENT: normocephalic atraumatic, no oropharyngeal lesions Neck: no JVD Heart: RRR, no murmur, no gallops, no rubs Respiratory: CTAB, no wheezes, no rales, no ronchi Gastrointestinal: soft, non-tender, non-distended, normal bowel sounds Extremities: no cyanosis, no clubbing, no edema Skin: normal turgor, no lesions, no rashes Neurological: cranial nerve grossly intact, normal sensation to touch, no weakness Hosp A/P - Plan Parathyroid scan: 6 mm nodular density in right tracheoesophageal groove. No parathyroid adenoma This is a 54 year old male with hyperparathyroidism who presented to the ER with abdominal pain. She was found to have severe bilateral hydronephrosis and hypercalcemia #Bilateral renal calculi with obstructive hydronephrosis #Urethral stricture - urology consulted, patient had bilateral stent placement 01/07 and right ureteral basket extraction of stone - kidney stone will be removed once kidney function is improved - UA shows UTI, urine culture normal, but done after IV antibiotics. Continue IV ceftriaxone day 3 - oxybutynin prn for bladder spasms - continue flomax Hypercalcemia secondary to hyperparathyroidism - calcium stable at 11, continue IV fluids. Parathyroid scan showed 6 mm tracheoesophageal groove, no adenoma. 24 hour urine calcium low - plan for CT neck with IV contrast when creatinine has improved. Vitamin D level is 21 Sepsis from UTI - WBC has improved to 12. UA abnormal, urine culture normal - continue IV ceftrixone #Acute Kidney Injury- secondary to obstructive hydronephrosis - creatinine improving to 2.12. Fluids increased by nephrology - baseline was normal Tachy/alfonso syndrome ? - has sinus tachycardia, but episode of second degree AV block on telemetry - ECHO ordered and is normal - cardiology was consulted, did not recommend a pacemaker, but to consider outpatient stress testing Anemia - stable, hemoglobin 9.6 Dispo: pending improvement in creatinine, calcium. Consider CT neck tomorrow if creatinine better
[2020-01-09] MEDS: Calcium Carbonate 500 MG ChewTAB PO PRN (20:15)
[2020-01-10] MEDS: Sodium Bicarbonate 50 MEQ in Sodium Chloride 0.45% 1,000 ML IV SCH (03:11)
[2020-01-10 05:22] LABS: Hemoglobin 9.5 g/dL (12.0-16.0); Mean Corpuscular HGB CONC 31.1 g/dL (32.0-36.0); Mean Corpuscular Hemoglobin 27.5 pg (27.0-31.0); Mean Corpuscular Volume 88.2 fL (78.0-98.0); Mean Platelet Volume 7.2 fL (7.4-10.4); Platelet Count 459 thou/uL (130-400); RBC Distribution Width 14.7 % (11.5-14.5); Red Blood Cell (RBC) Count 3.47 mill/uL (4.20-5.40); White Blood Cell (WBC) Count 10.2 thou/uL (4.8-10.8)
[2020-01-10 05:30] LABS: Anion Gap 14 mmol/L (10-20); BUN (Urea Nitrogen) 16 mg/dL (9.8-20.1); Calc. Creatinine Clearance 44 mL/min (70-130); Calcium 11.5 mg/dL (7.8-10.44); Carbon Dioxide 21 mmol/L (22-29); Chloride 113 mmol/L (98-107); Glucose 83 mg/dL (70-105); Potassium 3.8 mmol/L (3.5-5.1); Sodium 144 mmol/L (136-145)
[2020-01-10] MEDS: Calcium Carbonate 500 MG ChewTAB PO PRN ×2 (05:51→14:25)
[2020-01-10] MEDS: Acetaminophen 325 MG TAB PO PRN (05:51)
[2020-01-10] MEDS: Lactated Ringer's 1,000 ML IV SCH ×4 (06:36→17:59)
--- NOTE | 2020-01-10 08:44 | PDOC.NEPPN ---
- Subjective Encounter Date: 01/10/20 Subjective: Seen and examined. No new problem. Denied SOB or edema. - Objective Vital Signs & Weight: Vital Signs (12 hours) Temp Pulse Resp BP BP Pulse Ox 01/10/20 07:12 98.4 F 74 18 144/70 H 99 01/10/20 04:07 98.3 F 84 20 166/90 H 99 01/09/20 23:44 156/71 H 01/09/20 23:25 97.8 F 72 182/83 H 98 Weight Admit Weight 172 lb 3.2 oz Weight 172 lb 3.2 oz I&O: 01/09/20 01/10/20 01/11/20 06:59 06:59 06:59 Intake Total 6643 3327 Output Total 2890 Balance -8080 3328 Result Diagrams: 01/10/20 04:55 01/10/20 04:55 Nephrology ROS - Medication Medications: Active Medications Generic Name Dose Route Start Last Admin Trade Name Freq PRN Reason Stop Dose Admin Acetaminophen 650 mg 01/05/20 20:31 01/10/20 05:51 Acetaminophen 325 Mg Tab PO 650 mg Q4H PRN Administration Headache/Fever/Mild Pain (1-3) Hydrocodone Bitart/Acetaminophen 1 tab 01/06/20 19:54 01/09/20 07:57 Hydrocodone/Acetaminophen 5/325 Mg Tablet PO 1 tab Q4H PRN Administration Moderate Pain (4-6) Calcium Carbonate 1,000 mg 01/09/20 19:35 01/10/20 05:51 Calcium Carbonate 500 Mg Chewtab PO 1,000 mg Q4H PRN Administration Heartburn or Indigestion Famotidine 20 mg 01/09/20 09:00 01/09/20 07:57 Famotidine 20 Mg Tab PO 20 mg DAILY ANA Administration Ceftriaxone Sodium 2 gm/ 100 mls @ 200 mls/hr 01/06/20 09:00 01/09/20 07:56 Sodium Chloride IVPB 100 mls Q24HR ANA Administration Lactated Ringer's 1,000 mls @ 250 mls/hr 01/10/20 06:30 01/10/20 06:36 Lactated Ringer's IV 1,000 mls .Q4H ANA Administration Oxybutynin Chloride 5 mg 01/07/20 12:19 01/09/20 20:24 Oxybutynin 5 Mg Tab PO 5 mg TID PRN Administration Bladder Spasms Sodium Bicarbonate 1,300 mg 01/09/20 15:00 01/09/20 20:17 Sodium Bicarbonate Tab 325 Mg Tab PO 1,300 mg TID ANA Administration Sodium Chloride 10 ml 01/06/20 09:00 01/09/20 20:17 Flush - Normal Saline 10 Ml Syringe IVF Not Given Q12HR ANA Sodium Chloride 10 ml 01/06/20 08:15 01/08/20 11:40 Flush - Normal Saline 10 Ml Syringe IVF 10 ml PRN PRN Administration Saline Flush Tamsulosin HCl 0.4 mg 01/09/20 09:00 01/09/20 08:21 Tamsulosin Hcl 0.4 Mg Cap PO 0.4 mg DAILY ANA Administration Throat Lozenges 1 lorena 01/07/20 23:30 01/08/20 08:35 Cepastat Lozenges 1 Lorena PO 1 lorena Q2H PRN Administration Sore Throat - Exam General Appearance: awake alert Eye: anicteric sclera ENT: normocephalic atraumatic, moist mucosa Neck: supple, no JVD Respiratory: CTAB Cardiovascular: RRR, murmur present Gastrointestinal: soft, non-tender, non-distended, normal bowel sounds Extremities: no cyanosis, no edema Neurological: CN's grossly intact, no focal deficits PSYCH: A&O x 3 Nephrology Results - Labs Result Diagrams: 01/10/20 04:55 01/10/20 04:55 Lab results: WBC 10.2 thou/uL (4.8-10.8) 01/10/20 04:55 Hgb 9.5 g/dL (12.0-16.0) L 01/10/20 04:55 Hct 30.6 % (36.0-47.0) L 01/10/20 04:55 MCV 88.2 fL (78.0-98.0) 01/10/20 04:55 Plt Count 459 thou/uL (130-400) H 01/10/20 04:55 Neutrophils % 73.4 % (42.0-75.0) 01/06/20 05:17 Band Neuts % (Manual) 7 % (5-11) 01/07/20 05:35 Sodium 144 mmol/L (136-145) 01/10/20 04:55 Potassium 3.8 mmol/L (3.5-5.1) 01/10/20 04:55 Chloride 113 mmol/L (98-107) H 01/10/20 04:55 Carbon Dioxide 21 mmol/L (22-29) L 01/10/20 04:55 BUN 16 mg/dL (9.8-20.1) 01/10/20 04:55 Creatinine 1.80 mg/dL (0.6-1.1) H 01/10/20 04:55 Glucose 83 mg/dL (70-105) 01/10/20 04:55 Calcium 11.5 mg/dL (7.8-10.44) H 01/10/20 04:55 Total Bilirubin 0.2 mg/dL (0.2-1.2) 01/06/20 05:17 AST 12 U/L (5-34) 01/06/20 05:17 ALT 8 U/L (8-55) 01/06/20 05:17 Alkaline Phosphatase 76 U/L (40-110) 01/06/20 05:17 Troponin I Less than 0.010 ng/mL (< 0.028) 01/08/20 02:08 Serum Total Protein 7.5 g/dL (6.0-8.3) 01/06/20 05:17 Albumin 3.3 g/dL (3.5-5.0) L 01/06/20 05:17 Urine Ketones Negative mg/dL (Negative) 01/08/20 15:20 Urine Blood 3+ (Negative) A 01/08/20 15:20 Urine Nitrite Negative (Negative) 01/08/20 15:20 Ur Leukocyte Esterase 500 Samuel/uL (Negative) A 01/08/20 15:20 Urine RBC Greater than 50 HPF (0-3) A 01/08/20 15:20 Urine WBC 21-50 HPF (0-3) A 01/08/20 15:20 Ur Squamous Epith Cells 0-3 HPF (0-3) 01/08/20 15:20 Urine Bacteria 2+ HPF (None Seen) A 01/08/20 15:20 Sodium 144 mmol/L (136-145) 01/10/20 04:55 Potassium 3.8 mmol/L (3.5-5.1) 01/10/20 04:55 Chloride 113 mmol/L (98-107) H 01/10/20 04:55 Carbon Dioxide 21 mmol/L (22-29) L 01/10/20 04:55 Anion Gap 14 mmol/L (10-20) 01/10/20 04:55 BUN 16 mg/dL (9.8-20.1) 01/10/20 04:55 Creatinine 1.80 mg/dL (0.6-1.1) H 01/10/20 04:55 Glucose 83 mg/dL (70-105) 01/10/20 04:55 Calcium 11.5 mg/dL (7.8-10.44) H 01/10/20 04:55 Magnesium 1.6 mg/dL (1.6-2.6) 01/10/20 04:55 Albumin 3.3 g/dL (3.5-5.0) L 01/06/20 05:17 Nephrology AP PN - Plan JOSHUA: Due to hemodynamic factors and obstructive uropathy. Creat is trending down. 1.8 today. Creat was 1.0 in 2019. Hypercalcemia: Due to hyperparathyroidism. Worse today at 11.5 despite IVF Presumed primary hyperparathyroidism. Very low urinary excretion of calcium is concerning FFP especially with negative uptake in NM scan. Vitamin deficiency may be contributory HTN; Control acceptable. Nephrolithiasis bilaterally with obstruction. S/p cystoscopy, extraction of stone on the right and bilateral stent placement Bilateral severe hydronephrosis Metabolic acidosis. Improving with alkali therapy. Proteinuria Anemia in CKD Left Neck swelling Plan Increase IVF to 250. Start lasix. Also start amlodipine for hTN Continue alkalai therapy Follow renal function and electrolytes Start vitamin d supplementation and recheck iPTH. Recheck BMP in 8 hours, If no significant improvement on calcium level, will give calcitonin. Will get CT neck with contrast once renal function improve further
[2020-01-10] MEDS: Tamsulosin HCl 0.4 MG CAP PO SCH (08:51)
[2020-01-10] MEDS: Sodium Bicarbonate Tab 325 MG TAB PO SCH ×3 (08:51→21:03)
[2020-01-10] MEDS: Famotidine 20 MG TAB PO SCH (08:52)
[2020-01-10] MEDS: Oxybutynin 5 MG TAB PO PRN ×3 (08:52→21:10)
[2020-01-10] MEDS: cefTRIAXone\\ROCEPHIN 2 GM in Sodium Chloride 0.9% 100 ML IVPB SCH (08:56)
[2020-01-10] MEDS ORDERED: Amlodipine 5 MG TAB PO SCH (09:00)
[2020-01-10] MEDS ORDERED: Ergocalciferol 1.25 MG(50,000 UNITS) CAP PO SCH (09:00)
[2020-01-10] MEDS ORDERED: Furosemide 40 MG TAB PO SCH (09:00)
[2020-01-10 16:46] LABS: Anion Gap 14 mmol/L (10-20); BUN (Urea Nitrogen) 18 mg/dL (9.8-20.1); Calc. Creatinine Clearance 39 mL/min (70-130); Calcium 11.6 mg/dL (7.8-10.44); Carbon Dioxide 22 mmol/L (22-29); Chloride 110 mmol/L (98-107); Glucose 113 mg/dL (70-105); Potassium 3.5 mmol/L (3.5-5.1); Sodium 142 mmol/L (136-145)
--- NOTE | 2020-01-10 18:22 | PDOC.HOSPP ---
- Subjective Encounter Date: 01/10/20 Encounter Time: 10:00 Subjective: F/u: hypercalcemia, acute kidney injury, hyperparathyroidism. The patient's creatinine is improving to 1.8 this morning. She denies abdominal pain, urinary spasms. She feels her urine flow is not that adequate. She denies neck pain, dysphagia - Objective Vital Signs & Weight: Vital Signs (12 hours) Temp Pulse Resp BP Pulse Ox 01/10/20 15:44 90 16 136/69 97 01/10/20 11:18 97.8 F 93 16 138/85 99 01/10/20 08:52 74 01/10/20 07:12 98.4 F 74 18 144/70 H 99 Weight Admit Weight 172 lb 3.2 oz Weight 172 lb 3.2 oz I&O: 01/09/20 01/10/20 01/11/20 06:59 06:59 06:59 Intake Total 5245 3327 720 Output Total 6900 Balance -1655 3327 720 Result Diagrams: 01/10/20 04:55 01/10/20 16:12 Hospitalist ROS - Review of Systems Constitutional: denies: fever, chills - Medication Medications: Active Medications Generic Name Dose Route Start Last Admin Trade Name Freq PRN Reason Stop Dose Admin Acetaminophen 650 mg 01/05/20 20:31 01/10/20 05:51 Acetaminophen 325 Mg Tab PO 650 mg Q4H PRN Administration Headache/Fever/Mild Pain (1-3) Hydrocodone Bitart/Acetaminophen 1 tab 01/06/20 19:54 01/09/20 07:57 Hydrocodone/Acetaminophen 5/325 Mg Tablet PO 1 tab Q4H PRN Administration Moderate Pain (4-6) Amlodipine Besylate 2.5 mg 01/10/20 09:00 01/10/20 08:52 Amlodipine 5 Mg Tab PO 2.5 mg DAILY ANA Administration Calcium Carbonate 1,000 mg 01/09/20 19:35 01/10/20 14:25 Calcium Carbonate 500 Mg Chewtab PO 1,000 mg Q4H PRN Administration Heartburn or Indigestion Ergocalciferol 1.25 mg 01/10/20 09:00 01/10/20 10:13 Ergocalciferol 1.25 Mg(50,000 Units) Cap PO 1.25 mg Q7DAYS ANA Administration Famotidine 20 mg 01/09/20 09:00 01/10/20 08:52 Famotidine 20 Mg Tab PO 20 mg DAILY ANA Administration Ceftriaxone Sodium 2 gm/ 100 mls @ 200 mls/hr 01/06/20 09:00 01/10/20 08:56 Sodium Chloride IVPB 100 mls Q24HR ANA Administration Lactated Ringer's 1,000 mls @ 250 mls/hr 01/10/20 06:30 01/10/20 17:59 Lactated Ringer's IV 1,000 mls .Q4H ANA Administration Oxybutynin Chloride 5 mg 01/07/20 12:19 01/10/20 16:28 Oxybutynin 5 Mg Tab PO 5 mg TID PRN Administration Bladder Spasms Sodium Bicarbonate 1,300 mg 01/09/20 15:00 01/10/20 14:25 Sodium Bicarbonate Tab 325 Mg Tab PO 1,300 mg TID ANA Administration Sodium Chloride 10 ml 01/06/20 09:00 01/10/20 08:52 Flush - Normal Saline 10 Ml Syringe IVF 10 ml Q12HR ANA Administration Sodium Chloride 10 ml 01/06/20 08:15 01/08/20 11:40 Flush - Normal Saline 10 Ml Syringe IVF 10 ml PRN PRN Administration Saline Flush Tamsulosin HCl 0.4 mg 01/09/20 09:00 01/10/20 08:51 Tamsulosin Hcl 0.4 Mg Cap PO 0.4 mg DAILY ANA Administration Throat Lozenges 1 lorena 01/07/20 23:30 01/08/20 08:35 Cepastat Lozenges 1 Lorena PO 1 lorena Q2H PRN Administration Sore Throat - Exam General Appearance: NAD, awake alert Eye: PERRL, anicteric sclera ENT: normocephalic atraumatic, no oropharyngeal lesions Neck: no JVD Heart: RRR, no murmur, no gallops, no rubs Respiratory: CTAB, no wheezes, no rales, no ronchi Gastrointestinal: soft, non-tender, non-distended, normal bowel sounds Extremities: no cyanosis, no clubbing, no edema Skin: normal turgor, no lesions, no rashes Neurological: cranial nerve grossly intact, normal sensation to touch, no weakness Musculoskeletal: normal strength, no muscle wasting Psychiatric: A&O x 3 Hosp A/P - Plan Parathyroid scan: 6 mm nodular density in right tracheoesophageal groove. No parathyroid adenoma This is a 54 year old male with hyperparathyroidism who presented to the ER with abdominal pain. She was found to have severe bilateral hydronephrosis and hypercalcemia #Bilateral renal calculi with obstructive hydronephrosis #Urethral stricture - urology consulted, patient had bilateral stent placement 01/07 and right ureteral basket extraction of stone - kidney stone will be removed once kidney function is improved - oxybutynin prn for bladder spasms - continue flomax Hypercalcemia secondary to hyperparathyroidism vs soham hypercalcemic hypocalciuria - calcium stable at 11, continue IV fluids. Parathyroid scan showed 6 mm tracheoesophageal groove, no adenoma. 24 hour urine calcium low - plan for CT neck with IV contrast when creatinine has improved. Vitamin D level is 21 #Acute Kidney Injury- secondary to obstructive hydronephrosis - creatinine improving to 1.8 with IV fluids, but lasix ordered for hypercalcemia this morning and repeat BMP showed worsening creatinine to 2. Will hold further diuretics - continue IV fluids, repeat BMP in the morning Sepsis from UTI - WBC has improved to 12. UA abnormal, urine culture normal - started IV ceftriaxone 01/05. Will switch to oral cefdinir - continue IV fluids Tachy/alfonso syndrome ? - has sinus tachycardia, but episode of second degree AV block on telemetry - ECHO ordered and is normal - cardiology was consulted, did not recommend a pacemaker, but to consider outpatient stress testing Anemia - stable, hemoglobin 9.6 Dispo: pending improvement in creatinine, calcium. Consider CT neck tomorrow if creatinine better
--- NOTE | 2020-01-10 19:46 | ULT ---
Renal ultrasound: 01/10/2020 HISTORY: Hydronephrosis TECHNIQUE: Multiplanar grayscale sonographic imaging of the kidneys and urinary bladder obtained. FINDINGS: Evaluation of hydronephrosis and renal stone disease is better assessed on recent CT perfor med 01/06/2020. This study is compared to prior renal ultrasound performed 01/06/2020. On today's examination the right kidney measures 12.8 x 6.3 x 6.3 cm and demonstrates mild hydronephr osis, markedly improved when compared to the prior examination. Multiple intrarenal calculi are suspected on the right, not optimally assessed on this exam. Urinary bladder is grossly unremarkable, with a volume of 1 68 cc. The left kidney measures 11.9 x 6.3 x 5.2 cm and demonstrates mild hydronephrosis, improved when comp ared to the prior examination. Areas of increased echogenicity within the left kidney suggest multiple stones, not well assessed on this exam. IMPRESSION: Mild bilateral hydronephrosis, markedly improved when compared to the prior exam.
[2020-01-10] MEDS: Cefdinir 300 MG CAP PO SCH (21:03)
[2020-01-11] MEDS: Lactated Ringer's 1,000 ML IV SCH ×6 (00:07→17:36)
[2020-01-11] MEDS: Calcium Carbonate 500 MG ChewTAB PO PRN (00:14)
[2020-01-11] MEDS: Acetaminophen 325 MG TAB PO PRN ×2 (04:31→21:55)
[2020-01-11 06:17] LABS: Anion Gap 15 mmol/L (10-20); BUN (Urea Nitrogen) 17 mg/dL (9.8-20.1); Calc. Creatinine Clearance 44 mL/min (70-130); Carbon Dioxide 19 mmol/L (22-29); Chloride 112 mmol/L (98-107); Glucose 92 mg/dL (70-105); Potassium 3.9 mmol/L (3.5-5.1); Sodium 142 mmol/L (136-145)
[2020-01-11] MEDS ORDERED: Calcitonin,Salmon,Synthetic 200 UNITS/ML MDV SC SCH (06:45)
[2020-01-11] MEDS: Sodium Bicarbonate Tab 325 MG TAB PO SCH ×2 (08:35→15:01)
[2020-01-11] MEDS: Famotidine 20 MG TAB PO SCH (08:36)
[2020-01-11] MEDS: Cefdinir 300 MG CAP PO SCH ×2 (08:36→21:55)
[2020-01-11] MEDS: Amlodipine 5 MG TAB PO SCH (08:36)
[2020-01-11] MEDS: Tamsulosin HCl 0.4 MG CAP PO SCH (08:36)
[2020-01-11] MEDS: Oxybutynin 5 MG TAB PO PRN ×2 (08:44→22:04)
--- NOTE | 2020-01-11 09:19 | EKG ---
Test Reason : STAT Blood Pressure : / mmHG Vent. Rate : 071 BPM Atrial Rate : 071 BPM P-R Int : 188 ms QRS Dur : 098 ms QT Int : 350 ms P-R-T Axes : 048 000 016 degrees QTc Int : 380 ms Sinus rhythm with marked sinus arrhythmia Nonspecific T wave abnormality Abnormal ECG No previous ECGs available Confirmed by EDIE ABDI MD [id number] on 01/11/2020 9:19:09 AM Referred By: BERTO Confirmed By:EDIE ABDI MD
--- NOTE | 2020-01-11 13:59 | PDOC.NEPPN ---
- Subjective Encounter Date: 01/11/20 Subjective: No new problem. Still getting IV fluid. - Objective Vital Signs & Weight: Vital Signs (12 hours) Temp Pulse Resp BP BP BP Pulse Ox 01/11/20 11:00 98.1 F 93 16 139/82 100 01/11/20 08:36 66 139/72 01/11/20 07:45 99 01/11/20 07:11 98.4 F 66 16 139/72 99 01/11/20 04:00 98.4 F 70 18 181/78 H 99 Weight Admit Weight 172 lb 3.2 oz Weight 172 lb 3.2 oz I&O: 01/10/20 01/11/20 01/12/20 06:59 06:59 06:59 Intake Total 1714 0764 420 Output Total 9232 1000 Balance 3329 2013 -916 Result Diagrams: 01/10/20 04:55 01/11/20 04:54 Nephrology ROS - Medication Medications: Active Medications Generic Name Dose Route Start Last Admin Trade Name Freq PRN Reason Stop Dose Admin Acetaminophen 650 mg 01/05/20 20:31 01/11/20 04:31 Acetaminophen 325 Mg Tab PO 650 mg Q4H PRN Administration Headache/Fever/Mild Pain (1-3) Hydrocodone Bitart/Acetaminophen 1 tab 01/06/20 19:54 01/09/20 07:57 Hydrocodone/Acetaminophen 5/325 Mg Tablet PO 1 tab Q4H PRN Administration Moderate Pain (4-6) Amlodipine Besylate 5 mg 01/11/20 09:00 01/11/20 08:36 Amlodipine 5 Mg Tab PO 5 mg DAILY ANA Administration Calcium Carbonate 1,000 mg 01/09/20 19:35 01/11/20 00:14 Calcium Carbonate 500 Mg Chewtab PO 1,000 mg Q4H PRN Administration Heartburn or Indigestion Cefdinir 300 mg 01/10/20 21:00 01/11/20 08:36 Cefdinir 300 Mg Cap PO 300 mg BID ANA Administration Famotidine 20 mg 01/09/20 09:00 01/11/20 08:36 Famotidine 20 Mg Tab PO 20 mg DAILY ANA Administration Lactated Ringer's 1,000 mls @ 250 mls/hr 01/10/20 06:30 01/11/20 08:37 Lactated Ringer's IV 1,000 mls .Q4H ANA Administration Oxybutynin Chloride 5 mg 01/07/20 12:19 01/11/20 08:44 Oxybutynin 5 Mg Tab PO 5 mg TID PRN Administration Bladder Spasms Sodium Bicarbonate 1,300 mg 01/09/20 15:00 01/11/20 08:35 Sodium Bicarbonate Tab 325 Mg Tab PO 1,300 mg TID ANA Administration Sodium Chloride 10 ml 01/06/20 09:00 01/11/20 08:37 Flush - Normal Saline 10 Ml Syringe IVF Not Given Q12HR ANA Sodium Chloride 10 ml 01/06/20 08:15 01/08/20 11:40 Flush - Normal Saline 10 Ml Syringe IVF 10 ml PRN PRN Administration Saline Flush Tamsulosin HCl 0.4 mg 01/09/20 09:00 01/11/20 08:36 Tamsulosin Hcl 0.4 Mg Cap PO 0.4 mg DAILY ANA Administration Throat Lozenges 1 lorena 01/07/20 23:30 01/08/20 08:35 Cepastat Lozenges 1 Lorena PO 1 lorena Q2H PRN Administration Sore Throat - Exam General Appearance: awake alert Eye: anicteric sclera ENT: normocephalic atraumatic Neck: supple Respiratory: CTAB Cardiovascular: RRR, murmur present Gastrointestinal: soft, non-tender, non-distended, normal bowel sounds Extremities: no cyanosis, no edema Neurological: CN's grossly intact PSYCH: normal affect, A&O x 3 Nephrology Results - Labs Result Diagrams: 01/10/20 04:55 01/11/20 04:54 Lab results: WBC 10.2 thou/uL (4.8-10.8) 01/10/20 04:55 Hgb 9.5 g/dL (12.0-16.0) L 01/10/20 04:55 Hct 30.6 % (36.0-47.0) L 01/10/20 04:55 MCV 88.2 fL (78.0-98.0) 01/10/20 04:55 Plt Count 459 thou/uL (130-400) H 01/10/20 04:55 Neutrophils % 73.4 % (42.0-75.0) 01/06/20 05:17 Band Neuts % (Manual) 7 % (5-11) 01/07/20 05:35 Sodium 142 mmol/L (136-145) 01/11/20 04:54 Potassium 3.9 mmol/L (3.5-5.1) 01/11/20 04:54 Chloride 112 mmol/L (98-107) H 01/11/20 04:54 Carbon Dioxide 19 mmol/L (22-29) L 01/11/20 04:54 BUN 17 mg/dL (9.8-20.1) 01/11/20 04:54 Creatinine 1.80 mg/dL (0.6-1.1) H 01/11/20 04:54 Glucose 92 mg/dL (70-105) 01/11/20 04:54 Calcium 12.0 mg/dL (7.8-10.44) H 01/11/20 04:54 Total Bilirubin 0.2 mg/dL (0.2-1.2) 01/06/20 05:17 AST 12 U/L (5-34) 01/06/20 05:17 ALT 8 U/L (8-55) 01/06/20 05:17 Alkaline Phosphatase 76 U/L (40-110) 01/06/20 05:17 Troponin I Less than 0.010 ng/mL (< 0.028) 01/08/20 02:08 Serum Total Protein 7.5 g/dL (6.0-8.3) 01/06/20 05:17 Albumin 3.3 g/dL (3.5-5.0) L 01/06/20 05:17 Urine Ketones Negative mg/dL (Negative) 01/08/20 15:20 Urine Blood 3+ (Negative) A 01/08/20 15:20 Urine Nitrite Negative (Negative) 01/08/20 15:20 Ur Leukocyte Esterase 500 Samuel/uL (Negative) A 01/08/20 15:20 Urine RBC Greater than 50 HPF (0-3) A 01/08/20 15:20 Urine WBC 21-50 HPF (0-3) A 01/08/20 15:20 Ur Squamous Epith Cells 0-3 HPF (0-3) 01/08/20 15:20 Urine Bacteria 2+ HPF (None Seen) A 01/08/20 15:20 Sodium 142 mmol/L (136-145) 01/11/20 04:54 Potassium 3.9 mmol/L (3.5-5.1) 01/11/20 04:54 Chloride 112 mmol/L (98-107) H 01/11/20 04:54 Carbon Dioxide 19 mmol/L (22-29) L 01/11/20 04:54 Anion Gap 15 mmol/L (10-20) 01/11/20 04:54 BUN 17 mg/dL (9.8-20.1) 01/11/20 04:54 Creatinine 1.80 mg/dL (0.6-1.1) H 01/11/20 04:54 Glucose 92 mg/dL (70-105) 01/11/20 04:54 Calcium 12.0 mg/dL (7.8-10.44) H 01/11/20 04:54 Magnesium 1.6 mg/dL (1.6-2.6) 01/10/20 04:55 Albumin 3.3 g/dL (3.5-5.0) L 01/06/20 05:17 Nephrology AP PN - Plan JOSHUA: Due to hemodynamic factors and obstructive uropathy. Creat is down to 1.8 today. Creat was 1.0 in 2019. Hypercalcemia: Due to hyperparathyroidism. Calcium up to 12 despite IVF Presumed primary hyperparathyroidism. Very low urinary excretion of calcium is concerning FFP especially with negative uptake in NM scan. Vitamin deficiency may be contributory HTN; Control acceptable. Nephrolithiasis bilaterally with obstruction. S/p cystoscopy, extraction of stone on the right and bilateral stent placement Bilateral severe hydronephrosis Metabolic acidosis. Improving with alkali therapy. Proteinuria Anemia in CKD Left Neck swelling Plan Give calcitonin Continue IVF at 250. Increase amlodipine to 5 mg Continue alkalai therapy Follow renal function and electrolytes Recheck BMP in [address] neck with contrast once renal function improve further
[2020-01-11] MEDS ORDERED: Metoprolol Tartrate 25 MG TAB PO PRN (16:41)
[2020-01-11 17:28] LABS: Anion Gap 15 mmol/L (10-20); BUN (Urea Nitrogen) 16 mg/dL (9.8-20.1); Calc. Creatinine Clearance 45 mL/min (70-130); Carbon Dioxide 22 mmol/L (22-29); Chloride 111 mmol/L (98-107); Glucose 99 mg/dL (70-105); Potassium 3.7 mmol/L (3.5-5.1); Sodium 144 mmol/L (136-145)
[2020-01-11] MEDS: Sodium Chloride 0.9% 1,000 ML IV SCH ×2 (18:50→23:16)
--- NOTE | 2020-01-11 19:19 | PDOC.HOSPP ---
- Subjective Encounter Date: 01/11/20 Encounter Time: 19:18 Subjective: F/u: hypercalcemia, kidney stones The patient denies abd pain, nausea or vomiting. She received calcitonin this morning. She lost IV access for two hours and it was eventually regained Heart rate goes to 114 while ambulating , sinus tach - Objective Vital Signs & Weight: Vital Signs (12 hours) Temp Pulse Resp BP BP Pulse Ox 01/11/20 16:20 100 01/11/20 15:00 97.9 F 99 20 143/68 H 100 01/11/20 11:00 98.1 F 93 16 139/82 100 01/11/20 08:36 66 139/72 01/11/20 07:45 99 Weight Admit Weight 172 lb 3.2 oz Weight 172 lb 3.2 oz I&O: 01/10/20 01/11/20 01/12/20 06:59 06:59 06:59 Intake Total 3321 5852 1890 Output Total 1675 2500 Balance 3325 5240 -285 Result Diagrams: 01/10/20 04:55 01/11/20 16:51 Hospitalist ROS - Review of Systems Constitutional: denies: fever, chills - Medication Medications: Active Medications Generic Name Dose Route Start Last Admin Trade Name Freq PRN Reason Stop Dose Admin Acetaminophen 650 mg 01/05/20 20:31 01/11/20 04:31 Acetaminophen 325 Mg Tab PO 650 mg Q4H PRN Administration Headache/Fever/Mild Pain (1-3) Hydrocodone Bitart/Acetaminophen 1 tab 01/06/20 19:54 01/09/20 07:57 Hydrocodone/Acetaminophen 5/325 Mg Tablet PO 1 tab Q4H PRN Administration Moderate Pain (4-6) Amlodipine Besylate 5 mg 01/11/20 09:00 01/11/20 08:36 Amlodipine 5 Mg Tab PO 5 mg DAILY ANA Administration Calcium Carbonate 1,000 mg 01/09/20 19:35 01/11/20 00:14 Calcium Carbonate 500 Mg Chewtab PO 1,000 mg Q4H PRN Administration Heartburn or Indigestion Cefdinir 300 mg 01/10/20 21:00 01/11/20 08:36 Cefdinir 300 Mg Cap PO 300 mg BID ANA Administration Famotidine 20 mg 01/09/20 09:00 01/11/20 08:36 Famotidine 20 Mg Tab PO 20 mg DAILY ANA Administration Sodium Chloride 1,000 mls @ 250 mls/hr 01/11/20 18:15 01/11/20 18:50 Normal Saline 0.9% IV 1,000 mls .Q4H ANA Administration Oxybutynin Chloride 5 mg 01/07/20 12:19 01/11/20 08:44 Oxybutynin 5 Mg Tab PO 5 mg TID PRN Administration Bladder Spasms Sodium Chloride 10 ml 01/06/20 09:00 01/11/20 08:37 Flush - Normal Saline 10 Ml Syringe IVF Not Given Q12HR ANA Sodium Chloride 10 ml 01/06/20 08:15 01/08/20 11:40 Flush - Normal Saline 10 Ml Syringe IVF 10 ml PRN PRN Administration Saline Flush Tamsulosin HCl 0.4 mg 01/09/20 09:00 01/11/20 08:36 Tamsulosin Hcl 0.4 Mg Cap PO 0.4 mg DAILY ANA Administration Throat Lozenges 1 lorena 01/07/20 23:30 01/08/20 08:35 Cepastat Lozenges 1 Lorena PO 1 lorena Q2H PRN Administration Sore Throat - Exam General Appearance: NAD, awake alert Eye: PERRL, anicteric sclera ENT: normocephalic atraumatic, no oropharyngeal lesions Neck: no JVD Heart: RRR, no murmur, no gallops, no rubs Respiratory: CTAB, no wheezes, no rales, no ronchi Gastrointestinal: soft, non-tender, non-distended, normal bowel sounds Extremities: no cyanosis, no clubbing, no edema Skin: normal turgor, no lesions, no rashes Hosp A/P - Plan Parathyroid scan: 6 mm nodular density in right tracheoesophageal groove. No parathyroid adenoma This is a 54 year old male with hyperparathyroidism who presented to the ER with abdominal pain. She was found to have severe bilateral hydronephrosis and hypercalcemia #Bilateral renal calculi with obstructive hydronephrosis #Urethral stricture - urology consulted, patient had bilateral stent placement 01/07 and right ureteral basket extraction of stone - kidney stone will be removed once kidney function is improved - oxybutynin prn for bladder spasms - continue flomax Hypercalcemia secondary to hyperparathyroidism vs soham hypercalcemic hypocalciuria -PTH over 500, but 24 hour urine calcium is low - calcium up to 12. Started calcitonin this am. Cannot get bisphosphonate due to kidney dysfunction . Vitamin D low started calcitriol - Parathyroid scan showed no adenoma 6 mm tracheoesophageal groove - noted on parathyroid scan . - plan for CT neck with IV contrast when creatinine has improved. Vitamin D boom barrera is 21 #Acute Kidney Injury- secondary to obstructive hydronephrosis - creatinine improving to 1.7 with fluids will continue. Repeat renal ultrasound showed improvement Sepsis from UTI - WBC has improved to 10. UA abnormal, urine culture normal - started IV ceftriaxone 01/05. Continue cefdinir for two more days - continue IV fluids Tachy/alfonso syndrome ? - has sinus tachycardia, but episode of second degree AV block on telemetry - ECHO ordered and is normal - cardiology was consulted, did not recommend a pacemaker, but to consider outpatient stress testing - will order metoprolol prn for heart rate > 110 Anemia - stable, hemoglobin 9.5 Dispo: pending improvement in creatinine, calcium. Consider CT neck tomorrow if creatinine better
[2020-01-12] MEDS: Sodium Chloride 0.9% 1,000 ML IV SCH ×5 (03:10→23:51)
[2020-01-12] MEDS: Oxybutynin 5 MG TAB PO PRN ×2 (06:05→20:23)
[2020-01-12 07:39] LABS: Hemoglobin 9.6 g/dL (12.0-16.0); Mean Corpuscular HGB CONC 31.5 g/dL (32.0-36.0); Mean Corpuscular Hemoglobin 28.3 pg (27.0-31.0); Mean Corpuscular Volume 89.8 fL (78.0-98.0); Mean Platelet Volume 6.7 fL (7.4-10.4); Platelet Count 501 thou/uL (130-400); RBC Distribution Width 14.5 % (11.5-14.5); White Blood Cell (WBC) Count 11.9 thou/uL (4.8-10.8)
[2020-01-12 07:46] LABS: Albumin 3.4 g/dL (3.5-5.0); Anion Gap 12 mmol/L (10-20); BUN (Urea Nitrogen) 14 mg/dL (9.8-20.1); BUN/Creatinine Ratio 9.59; Calc. Creatinine Clearance 54 mL/min (70-130); Calcium 10.4 mg/dL (7.8-10.44); Carbon Dioxide 20 mmol/L (22-29); Chloride 116 mmol/L (98-107); Glucose 95 mg/dL (70-105); Sodium 144 mmol/L (136-145)
[2020-01-12 07:56] LABS: Phosphorus 1.8 mg/dL (2.3-4.7)
[2020-01-12] MEDS ORDERED: Potassium Phosphate 20 MMOL in Sodium Chloride 0.9% 250 ML 250 ML IVPB SCH (09:15)
[2020-01-12] MEDS: Acetaminophen 325 MG TAB PO PRN ×2 (09:29→20:23)
[2020-01-12] MEDS: Famotidine 20 MG TAB PO SCH (09:30)
[2020-01-12] MEDS: Amlodipine 5 MG TAB PO SCH (09:30)
[2020-01-12] MEDS: Tamsulosin HCl 0.4 MG CAP PO SCH (09:30)
[2020-01-12] MEDS: Cefdinir 300 MG CAP PO SCH ×2 (09:30→20:23)
--- NOTE | 2020-01-12 10:10 | PDOC.HOSPP ---
- Subjective Encounter Date: 01/12/20 Subjective: Pt feels well. C/o of occasional headaches. She is waiting to have the CT of her neck today. - Objective Vital Signs & Weight: Vital Signs (12 hours) Temp Pulse Resp BP BP Pulse Ox 01/12/20 09:30 88 01/12/20 07:49 97.9 F 88 22 H 168/70 H 100 01/12/20 03:22 98.1 F 87 16 127/65 100 01/11/20 23:03 98.2 F 59 L 16 145/68 H 98 Weight Admit Weight 172 lb 3.2 oz Weight 172 lb 3.2 oz I&O: 01/11/20 01/12/20 01/13/20 06:59 06:59 06:59 Intake Total 5830 4885 Output Total 1675 4300 Balance 4155 585 Result Diagrams: 01/12/20 07:19 01/12/20 07:19 Hospitalist ROS - Review of Systems Constitutional: denies: fever, chills, sweats, weakness, malaise, other Eyes: denies: pain, vision change, conjunctivae inflammation, eyelid inflammation, redness, other ENT: denies: ear pain, ear discharge, nose pain, nose discharge, nose congestion, mouth pain, mouth swelling, throat pain, throat swelling, other Respiratory: denies: cough, dry, shortness of breath, hemoptysis, SOB with excertion, pleuritic pain, sputum, wheezing, other Cardiovascular: denies: chest pain, palpitations, orthopnea, paroxysmal noc. dyspnea, edema, light headedness, other Gastrointestinal: denies: nausea, vomiting, abdominal pain, diarrhea, c onstipation, melena, hematochezia, other Genitourinary: denies: dysuria, frequency, incontinence, hematuria, retention, other Musculoskeletal: denies: neck pain, shoulder pain, arm pain, back pain, hand pain, leg pain, foot pain, other Skin: denies: rash, lesions, denise, bruising, other Neurological: reports: other (Headaches) - Medication Medications: Active Medications Generic Name Dose Route Start Last Admin Trade Name Freq PRN Reason Stop Dose Admin Acetaminophen 650 mg 01/05/20 20:31 01/12/20 09:29 Acetaminophen 325 Mg Tab PO 650 mg Q4H PRN Administration Headache/Fever/Mild Pain (1-3) Hydrocodone Bitart/Acetaminophen 1 tab 01/06/20 19:54 01/09/20 07:57 Hydrocodone/Acetaminophen 5/325 Mg Tablet PO 1 tab Q4H PRN Administration Moderate Pain (4-6) Amlodipine Besylate 5 mg 01/11/20 09:00 01/12/20 09:30 Amlodipine 5 Mg Tab PO 5 mg DAILY ANA Administration Calcium Carbonate 1,000 mg 01/09/20 19:35 01/11/20 00:14 Calcium Carbonate 500 Mg Chewtab PO 1,000 mg Q4H PRN Administration Heartburn or Indigestion Cefdinir 300 mg 01/10/20 21:00 01/12/20 09:30 Cefdinir 300 Mg Cap PO 300 mg BID ANA Administration Famotidine 20 mg 01/09/20 09:00 01/12/20 09:30 Famotidine 20 Mg Tab PO 20 mg DAILY ANA Administration Sodium Chloride 1,000 mls @ 250 mls/hr 01/11/20 18:15 01/12/20 08:00 Normal Saline 0.9% IV 1,000 mls .Q4H ANA Administration Potassium Phosphate 20 mmol/ 256.6667 mls @ 42.778 mls/hr 01/12/20 09:15 09:30 Sodium Chloride IVPB 01/12/20 15:14 256.6667 mls NOW ANA Administration Oxybutynin Chloride 5 mg 01/07/20 12:19 01/12/20 06:05 Oxybutynin 5 Mg Tab PO 5 mg TID PRN Administration Bladder Spasms Sodium Chloride 10 ml 01/06/20 09:00 01/12/20 09:33 Flush - Normal Saline 10 Ml Syringe IVF Not Given Q12HR ANA Sodium Chloride 10 ml 01/06/20 08:15 01/08/20 11:40 Flush - Normal Saline 10 Ml Syringe IVF 10 ml PRN PRN Administration Saline Flush Tamsulosin HCl 0.4 mg 01/09/20 09:00 01/12/20 09:30 Tamsulosin Hcl 0.4 Mg Cap PO 0.4 mg DAILY ANA Administration Throat Lozenges 1 lorena 01/07/20 23:30 01/08/20 08:35 Cepastat Lozenges 1 Lorena PO 1 lorena Q2H PRN Administration Sore Throat - Exam General Appearance: NAD, awake alert Eye: PERRL, anicteric sclera ENT: normocephalic atraumatic, no oropharyngeal lesions, moist mucosa Neck: supple, symmetric, no JVD, no thyromegaly Heart: RRR, no murmur, no gallops, normal peripheral pulses Respiratory: CTAB, no wheezes, no rales, normal chest expansion Gastrointestinal: soft, non-tender, non-distended, normal bowel sounds Extremities: no cyanosis, no clubbing, no edema Skin: no lesions, no rashes Neurological: cranial nerve grossly intact, no focal deficits Musculoskeletal: normal tone, normal strength Psychiatric: normal affect, A&O x 3 Hosp A/P (1) JOSHUA (acute kidney injury) Code(s): N17.9 - ACUTE KIDNEY FAILURE, UNSPECIFIED Status: Acute Plan: Improving. C is trending. (2) Bilateral kidney stones Code(s): N20.0 - CALCULUS OF KIDNEY Status: Acute Plan: s/p cysytocopsy and left stone extraction. (3) Hypercalcemia Code(s): E83.52 - HYPERCALCEMIA Status: Acute Plan: s/p calcitonin. Ca is now normal. (4) Hyperparathyroidism Code(s): E21.3 - HYPERPARATHYROIDISM, UNSPECIFIED Status: Acute Plan: Primary Parathyroidism. Nephrology is on board. Will f/u with their recs. (5) Obstructive uropathy Code(s): N13.9 - OBSTRUCTIVE AND REFLUX UROPATHY, UNSPECIFIED Status: Acute Plan: s/p BL stent placement. (6) UTI (urinary tract infection) Status: Acute Qualifiers: Urinary tract infection type: acute cystitis Hematuria presence: without hematuria Qualified Code(s): N30.00 - Acute cystitis without hematuria Plan: s/p abx, now improved. (7) HTN (hypertension) Code(s): I10 - ESSENTIAL (PRIMARY) HYPERTENSION Status: Acute Qualifiers: Hypertension type: essential hypertension Qualified Code(s): I10 - Essential (primary) hypertension Plan: Uncontrolled, will adjust meds for better blood pressure control. (8) Anemia Code(s): D64.9 - ANEMIA, UNSPECIFIED Status: Acute Plan: Possibly due to CKD. Will monitor. (9) Neck swelling Code(s): R22.1 - LOCALIZED SWELLING, MASS AND LUMP, NECK Status: Acute Plan: Left neck swelling. CT neck has been scheduled. Will f/u w results. - Plan PPx: SCDs. CODE: FULL. Disposition: Cont current mgt.
--- NOTE | 2020-01-12 16:13 | PDOC.NEPPN ---
- Subjective Encounter Date: 01/12/20 Subjective: Seen and examined. No new problem. - Objective Vital Signs & Weight: Vital Signs (12 hours) Temp Pulse Resp BP Pulse Ox 01/12/20 15:51 98.4 F 88 22 H 137/68 100 01/12/20 12:11 97.9 F 80 22 H 142/72 H 99 01/12/20 09:30 88 01/12/20 07:49 97.9 F 88 22 H 168/70 H 100 Weight Admit Weight 172 lb 3.2 oz Weight 172 lb 3.2 oz I&O: 01/11/20 01/12/20 01/13/20 06:59 06:59 06:59 Intake Total 5830 2934 720 Output Total 1586 4300 2250 Balance 4155 233 -0560 Result Diagrams: 01/12/20 07:19 01/12/20 07:19 Nephrology ROS - Medication Medications: Active Medications Generic Name Dose Route Start Last Admin Trade Name Freq PRN Reason Stop Dose Admin Acetaminophen 650 mg 01/05/20 20:31 01/12/20 09:29 Acetaminophen 325 Mg Tab PO 650 mg Q4H PRN Administration Headache/Fever/Mild Pain (1-3) Hydrocodone Bitart/Acetaminophen 1 tab 01/06/20 19:54 01/09/20 07:57 Hydrocodone/Acetaminophen 5/325 Mg Tablet PO 1 tab Q4H PRN Administration Moderate Pain (4-6) Amlodipine Besylate 5 mg 01/11/20 09:00 01/12/20 09:30 Amlodipine 5 Mg Tab PO 5 mg DAILY ANA Administration Calcium Carbonate 1,000 mg 01/09/20 19:35 01/11/20 00:14 Calcium Carbonate 500 Mg Chewtab PO 1,000 mg Q4H PRN Administration Heartburn or Indigestion Cefdinir 300 mg 01/10/20 21:00 01/12/20 09:30 Cefdinir 300 Mg Cap PO 300 mg BID ANA Administration Famotidine 20 mg 01/09/20 09:00 01/12/20 09:30 Famotidine 20 Mg Tab PO 20 mg DAILY ANA Administration Sodium Chloride 1,000 mls @ 250 mls/hr 01/11/20 18:15 01/12/20 08:00 Normal Saline 0.9% IV 1,000 mls .Q4H ANA Administration Oxybutynin Chloride 5 mg 01/07/20 12:19 01/12/20 06:05 Oxybutynin 5 Mg Tab PO 5 mg TID PRN Administration Bladder Spasms Sodium Chloride 10 ml 01/06/20 09:00 01/12/20 09:33 Flush - Normal Saline 10 Ml Syringe IVF Not Given Q12HR ANA Sodium Chloride 10 ml 01/06/20 08:15 01/08/20 11:40 Flush - Normal Saline 10 Ml Syringe IVF 10 ml PRN PRN Administration Saline Flush Tamsulosin HCl 0.4 mg 01/09/20 09:00 01/12/20 09:30 Tamsulosin Hcl 0.4 Mg Cap PO 0.4 mg DAILY ANA Administration Throat Lozenges 1 lorena 01/07/20 23:30 01/08/20 08:35 Cepastat Lozenges 1 Lorena PO 1 lorena Q2H PRN Administration Sore Throat - Exam General Appearance: awake alert Eye: anicteric sclera ENT: normocephalic atraumatic, moist mucosa Neck: no JVD Respiratory: CTAB Cardiovascular: RRR, murmur present Gastrointestinal: soft, non-tender, non-distended, normal bowel sounds Extremities: no edema Neurological: CN's grossly intact PSYCH: A&O x 3 Nephrology Results - Labs Result Diagrams: 01/12/20 07:19 01/12/20 07:19 Lab results: WBC 11.9 thou/uL (4.8-10.8) H 01/12/20 07:19 Hgb 9.6 g/dL (12.0-16.0) L 01/12/20 07:19 Hct 30.5 % (36.0-47.0) L 01/12/20 07:19 MCV 89.8 fL (78.0-98.0) 01/12/20 07:19 Plt Count 501 thou/uL (130-400) H 01/12/20 07:19 Neutrophils % 73.4 % (42.0-75.0) 01/06/20 05:17 Band Neuts % (Manual) 7 % (5-11) 01/07/20 05:35 Sodium 144 mmol/L (136-145) 01/12/20 07:19 Potassium 4.0 mmol/L (3.5-5.1) 01/12/20 07:19 Chloride 116 mmol/L (98-107) H 01/12/20 07:19 Carbon Dioxide 20 mmol/L (22-29) L 01/12/20 07:19 BUN 14 mg/dL (9.8-20.1) 01/12/20 07:19 Creatinine 1.46 mg/dL (0.6-1.1) H 01/12/20 07:19 Glucose 95 mg/dL (70-105) 01/12/20 07:19 Calcium 10.4 mg/dL (7.8-10.44) 01/12/20 07:19 Total Bilirubin 0.2 mg/dL (0.2-1.2) 01/06/20 05:17 AST 12 U/L (5-34) 01/06/20 05:17 ALT 8 U/L (8-55) 01/06/20 05:17 Alkaline Phosphatase 76 U/L (40-110) 01/06/20 05:17 Troponin I Less than 0.010 ng/mL (< 0.028) 01/08/20 02:08 Serum Total Protein 7.5 g/dL (6.0-8.3) 01/06/20 05:17 Albumin 3.4 g/dL (3.5-5.0) L 01/12/20 07:19 Urine Ketones Negative mg/dL (Negative) 01/08/20 15:20 Urine Blood 3+ (Negative) A 01/08/20 15:20 Urine Nitrite Negative (Negative) 01/08/20 15:20 Ur Leukocyte Esterase 500 Samuel/uL (Negative) A 01/08/20 15:20 Urine RBC Greater than 50 HPF (0-3) A 01/08/20 15:20 Urine WBC 21-50 HPF (0-3) A 01/08/20 15:20 Ur Squamous Epith Cells 0-3 HPF (0-3) 01/08/20 15:20 Urine Bacteria 2+ HPF (None Seen) A 01/08/20 15:20 Sodium 144 mmol/L (136-145) 01/12/20 07:19 Potassium 4.0 mmol/L (3.5-5.1) 01/12/20 07:19 Chloride 116 mmol/L (98-107) H 01/12/20 07:19 Carbon Dioxide 20 mmol/L (22-29) L 01/12/20 07:19 Anion Gap 12 mmol/L (10-20) 01/12/20 07:19 BUN 14 mg/dL (9.8-20.1) 01/12/20 07:19 Creatinine 1.46 mg/dL (0.6-1.1) H 01/12/20 07:19 Glucose 95 mg/dL (70-105) 01/12/20 07:19 Calcium 10.4 mg/dL (7.8-10.44) 01/12/20 07:19 Phosphorus 1.8 mg/dL (2.3-4.7) L 01/12/20 07:19 Magnesium 1.6 mg/dL (1.6-2.6) 01/10/20 04:55 Albumin 3.4 g/dL (3.5-5.0) L 01/12/20 07:19 Nephrology AP PN - Plan JOSHUA: Due to hemodynamic factors and obstructive uropathy. Creat is down to 1.4 today. Creat was 1.0 in 2019. Hypercalcemia: Due to hyperparathyroidism. Calcium down to 10.4 with IVF Presumed primary hyperparathyroidism. Very low urinary excretion of calcium most likely due to alkali therapy. HTN; Control acceptable. Nephrolithiasis bilaterally with obstruction. S/p cystoscopy, extraction of stone on the right and bilateral stent placement Bilateral severe hydronephrosis Metabolic acidosis. Improving with alkali therapy. Proteinuria Anemia in CKD Left Neck swelling Plan Continue IVF at 250. Continue amlodipine to 5 mg Alkalai therapy discontinued to improve calcium ecretion Follow renal function and electrolytes Will get CT neck with contrast tomorrow as creat is anticipated to drop further.
[2020-01-13 00:51] LABS: Anion Gap 11 mmol/L (10-20); BUN (Urea Nitrogen) 14 mg/dL (9.8-20.1); Calc. Creatinine Clearance 49 mL/min (70-130); Calcium 10.6 mg/dL (7.8-10.44); Carbon Dioxide 15 mmol/L (22-29); Chloride 118 mmol/L (98-107); Glucose 95 mg/dL (70-105); Magnesium 1.6 mg/dL (1.6-2.6); Potassium 3.9 mmol/L (3.5-5.1); Sodium 140 mmol/L (136-145)
[2020-01-13] MEDS ORDERED: Magnesium 2 GM/50 ML 2 GM in Premix Bag 1 BAG IVPB SCH (02:30)
[2020-01-13] MEDS: Sodium Chloride 0.9% 1,000 ML IV SCH ×6 (02:44→22:33)
[2020-01-13 05:41] LABS: Anion Gap 10 mmol/L (10-20); BUN (Urea Nitrogen) 13 mg/dL (9.8-20.1); Calc. Creatinine Clearance 50 mL/min (70-130); Calcium 11.2 mg/dL (7.8-10.44); Carbon Dioxide 18 mmol/L (22-29); Chloride 119 mmol/L (98-107); Glucose 89 mg/dL (70-105); Potassium 3.9 mmol/L (3.5-5.1); Sodium 143 mmol/L (136-145)
[2020-01-13] MEDS: Cefdinir 300 MG CAP PO SCH ×2 (08:27→20:20)
[2020-01-13] MEDS: Tamsulosin HCl 0.4 MG CAP PO SCH (08:28)
[2020-01-13] MEDS: Oxybutynin 5 MG TAB PO PRN ×3 (08:28→23:43)
[2020-01-13] MEDS: Famotidine 20 MG TAB PO SCH (08:28)
[2020-01-13] MEDS: Amlodipine 5 MG TAB PO SCH (08:28)
[2020-01-13] MEDS: Acetaminophen 325 MG TAB PO PRN ×3 (08:30→23:42)
[2020-01-13] MEDS ORDERED: Zoledronic Acid 4 MG in Sodium Chloride 0.9% 100 ML IVPB SCH (09:30)
[2020-01-13 12:37] LABS: Kappa Lambda Light Chain Ratio 1.18 (0.26-1.65); Kappa Light Chains 48.4 mg/L (3.3-19.4); Lambda Light Chain 40.9 mg/L (5.7-26.3)
--- NOTE | 2020-01-13 14:42 | PDOC.HOSPP ---
- Subjective Encounter Date: 01/13/20 - Objective Vital Signs & Weight: Vital Signs (12 hours) Temp Pulse Resp BP BP Pulse Ox 01/13/20 12:05 98 F 92 19 147/67 H 100 01/13/20 07:29 98.3 F 75 15 135/65 100 01/13/20 03:10 98 F 76 20 141/67 H 99 Weight Admit Weight 172 lb 3.2 oz Weight 172 lb 3.2 oz I&O: 01/12/20 01/13/20 01/14/20 06:59 06:59 06:59 Intake Total 4885 1960 Output Total 4300 1252 1300 Balance 582 -215 -9583 Result Diagrams: 01/14/20 04:33 01/14/20 04:33 Hospitalist ROS - Medication Medications: Active Medications Generic Name Dose Route Start Last Admin Trade Name Freq PRN Reason Stop Dose Admin Acetaminophen 650 mg 01/05/20 20:31 01/13/20 08:30 Acetaminophen 325 Mg Tab PO 650 mg Q4H PRN Administration Headache/Fever/Mild Pain (1-3) Hydrocodone Bitart/Acetaminophen 1 tab 01/06/20 19:54 01/09/20 07:57 Hydrocodone/Acetaminophen 5/325 Mg Tablet PO 1 tab Q4H PRN Administration Moderate Pain (4-6) Amlodipine Besylate 5 mg 01/11/20 09:00 01/13/20 08:28 Amlodipine 5 Mg Tab PO 5 mg DAILY ANA Administration Cefdinir 300 mg 01/10/20 21:00 01/13/20 08:27 Cefdinir 300 Mg Cap PO 300 mg BID ANA Administration Famotidine 20 mg 01/09/20 09:00 01/13/20 08:28 Famotidine 20 Mg Tab PO 20 mg DAILY ANA Administration Sodium Chloride 1,000 mls @ 250 mls/hr 01/11/20 18:15 01/13/20 13:44 Normal Saline 0.9% IV 1,000 mls .Q4H ANA Administration Oxybutynin Chloride 5 mg 01/07/20 12:19 01/13/20 08:28 Oxybutynin 5 Mg Tab PO 5 mg TID PRN Administration Bladder Spasms Sodium Chloride 10 ml 01/06/20 09:00 01/13/20 08:36 Flush - Normal Saline 10 Ml Syringe IVF Not Given Q12HR ANA Sodium Chloride 10 ml 01/06/20 08:15 01/08/20 11:40 Flush - Normal Saline 10 Ml Syringe IVF 10 ml PRN PRN Administration Saline Flush Tamsulosin HCl 0.4 mg 01/09/20 09:00 01/13/20 08:28 Tamsulosin Hcl 0.4 Mg Cap PO 0.4 mg DAILY ANA Administration Throat Lozenges 1 lorena 01/07/20 23:30 01/08/20 08:35 Cepastat Lozenges 1 Lorena PO 1 lorena Q2H PRN Administration Sore Throat - Exam General Appearance: awake alert ENT: normocephalic atraumatic Neck: supple, no JVD Respiratory: normal chest expansion, no tachypnea Gastrointestinal: soft Extremities: no cyanosis Neurological: cranial nerve grossly intact, no focal deficits Hosp A/P (1) JOSHUA (acute kidney injury) Code(s): N17.9 - ACUTE KIDNEY FAILURE, UNSPECIFIED Status: Acute (2) Obstructive uropathy Code(s): N13.9 - OBSTRUCTIVE AND REFLUX UROPATHY, UNSPECIFIED Status: Acute (3) Bilateral kidney stones Code(s): N20.0 - CALCULUS OF KIDNEY Status: Acute (4) Hypercalcemia Code(s): E83.52 - HYPERCALCEMIA Status: Acute (5) UTI (urinary tract infection) Status: Acute Qualifiers: Urinary tract infection type: acute cystitis Hematuria presence: without hematuria Qualified Code(s): N30.00 - Acute cystitis without hematuria (6) Hyperparathyroidism Code(s): E21.3 - HYPERPARATHYROIDISM, UNSPECIFIED Status: Acute (7) Primary hyperparathyroidism Code(s): E21.0 - PRIMARY HYPERPARATHYROIDISM Status: Acute - Plan The patient symptoms are likely due to hypercalcemia induced by primary hyperparathyroidism. The condition has caused bilateral kidney stones causing urinary obstruction with bilateral hydronephrosis and acute renal failure. Status post bilateral ureteric stent placement. Repeat ultrasound showed improved hydronephrosis. Kidney function is improving. The patient remains on IV fluids. Calcium level has also improved since admission. The patient does meet the criteria for parathyroidectomy once her acute condition has improved. No signs of sepsis related to UTI.
[2020-01-13 17:13] LABS: A/G Ratio 0.8 (0.7-1.7); Alpha 1 0.3 g/dL (0.0-0.4); Gamma 1.5 g/dL (0.4-1.8); Globulin, Total 3.8 g/dL (2.2-3.9); M-Spike 0.5 g/dL (Not Observed)
--- NOTE | 2020-01-13 17:35 | PRG ---
DATE OF SERVICE: 01/13/2020 OBJECTIVE: VITAL SIGNS: The patient has been noted with the following vital signs; afebrile, temperature 98.2, pulse 78, respiratory rate of 20, O2 saturation of 100%, blood pressure 137/72. HEENT: Unremarkable. CARDIOVASCULAR SYSTEM: First and second heart sounds were heard. RESPIRATORY SYSTEM: Clear to auscultation. DIGESTIVE SYSTEM: Revealed a benign abdomen with positive bowel sounds. EXTREMITIES: No peripheral edema. SKIN: No new gross rash. LYMPHATICS: No peripheral lymphadenopathy. LABORATORY INVESTIGATION: Showed a white count of 11,900. Chemistry showed a bicarb of 18, creatinine of 1.56, calcium of 11.2. IMPRESSION: 1. Hypercalcemia. This is likely in the context of problem #2. 2. Primary hyperparathyroidism. 3. Acute kidney injury, possibly related to the hypercalcemia. PLAN: 1. The patient IV fluid. 2. Once the creatinine gets below 1.5, the patient can undergo CT scan of the neck. 3. We will start this patient however, depending on what the CAT scan shows, the patient likely to benefit from surgical parathyroidectomy as definitive treatment for this primary hyperparathyroidism. 4. Further management to be dependent on the clinical course. Job ID: [id number]
[2020-01-13 20:07] LABS: Albumin-Ur 38.7 % (.); Alpha 1 - Ur 5.7 % (.); Alpha 2 - Ur 16.9 % (.); Beta-Ur 16.8 % (.); Gamma-Ur 21.9 % (.); M-Spike,% 5.2 % (Not Observed)
[2020-01-14] MEDS: Sodium Chloride 0.9% 1,000 ML IV SCH ×5 (02:38→20:19)
[2020-01-14 05:37] LABS: Anion Gap 13 mmol/L (10-20); BUN (Urea Nitrogen) 11 mg/dL (9.8-20.1); Calc. Creatinine Clearance 53 mL/min (70-130); Carbon Dioxide 16 mmol/L (22-29); Chloride 118 mmol/L (98-107); Glucose 92 mg/dL (70-105); Potassium 3.8 mmol/L (3.5-5.1); Sodium 143 mmol/L (136-145)
[2020-01-14 05:46] LABS: Band 5 % (5-11); Eosinophils 1 % (0-10); Hemoglobin 9.9 g/dL (12.0-16.0); Lymphocytes 15 % (21-51); MDiff Complete? YES; Mean Corpuscular HGB CONC 30.5 g/dL (32.0-36.0); Mean Corpuscular Hemoglobin 27.2 pg (27.0-31.0); Mean Platelet Volume 6.8 fL (7.4-10.4); Monocytes 3 % (0-10); Neutrophil 76 % (42-75); Platelet Count 504 thou/uL (130-400); Platelet Morphology Comment Appears Increased; RBC Distribution Width 14.9 % (11.5-14.5); RBC Morphology Normal; Red Blood Cell (RBC) Count 3.65 mill/uL (4.20-5.40); White Blood Cell (WBC) Count 10.4 thou/uL (4.8-10.8)
[2020-01-14] MEDS: Cinacalcet HCl 30 MG TAB PO SCH (07:50)
[2020-01-14] MEDS: Amlodipine 5 MG TAB PO SCH (07:50)
[2020-01-14] MEDS: Famotidine 20 MG TAB PO SCH (07:51)
[2020-01-14] MEDS: Tamsulosin HCl 0.4 MG CAP PO SCH (07:51)
[2020-01-14] MEDS: Acetaminophen 325 MG TAB PO PRN ×4 (07:51→20:21)
[2020-01-14] MEDS: Oxybutynin 5 MG TAB PO PRN ×2 (07:51→16:10)
[2020-01-14] MEDS: Cefdinir 300 MG CAP PO SCH (07:51)
--- NOTE | 2020-01-14 10:46 | CT ---
CT of the neck with and without contrast-CT parathyroid protocol 01/06/2020 HISTORY: Hyperparathyroidism TECHNIQUE: Axial CT imaging obtained with and without contrast through the neck using a parathyroid p rotocol. Coronal and sagittal reformatted imaging obtained. FINDINGS: There is a nonspecific oblong 1.5 x 0.5 x 1.2 cm soft tissue structure posterior to the tra kelli to the left of midline at the axial level of the cricoid cartilage, best seen on axial image 66. It is difficult to evaluate its Hounsfield units secondary to its small size but it appears less dense than the adjacent thyroid tissue. This oval density does abut the posterior aspect of the left lobe of the thyroid gland superiorly. It appears slightly hypodense when compared to the adjacen t thyroid gland on precontrast imaging. On the initial postcontrast imaging its Hounsfield units are estimated at 97 and its precontrast Hounsfield units are estimated at 55-60, suggesting significa nt enhancement. Of note, the thyroid gland precontrast Hounsfield units are in the 80-90 range. The imaged lung parenchyma appears unremarkable. The right vocal cord is medialized suggesting right vocal cord paralysis. 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 There is no worrisome lytic or blastic bone lesion. There is fusion at the intervertebral disc level and facet joints at the C2-3 level. There is disc degenerative change at C3-4 and T1-2. There is no discrete abnormality in the region of the right tracheoesophageal groove. The retroantral fat, parapharyngeal fat, parotid glands, and submandibular glands appear unremarkable . The cricoid cartilage, thyroid cartilage, and hyoid bone appear unremarkable. There is a medialized r etropharyngeal course of the distal CCA bilaterally and of the proximal right internal carotid artery. IMPRESSION: Oval soft tissue density superior and posterior to the left lobe of the thyroid gland whi ch abuts the left thyroid gland. Its Hounsfield units are suspicious for a parathyroid adenoma. However, it is an indeterminant abnormality given no abnormality on the nuclear medicine study. If th ere is high clinical concern for a parathyroid adenoma this would be the area of highest clinical concern based on imaging. Medialized right vocal cord suggesting right-sided vocal cord paralysis. 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
[2020-01-14] MEDS ORDERED: Iopamidol-370 76% 500 ML 1 ML ONE (11:49)
--- NOTE | 2020-01-14 12:32 | PDOC.HOSPP ---
- Subjective Encounter Date: 01/14/20 - Objective Vital Signs & Weight: Vital Signs (12 hours) Temp Pulse Resp BP BP Pulse Ox 01/14/20 11:51 99.5 F 121 H 24 H 142/77 H 100 01/14/20 07:50 101 H 01/14/20 07:17 100.6 F H 120 H 22 H 130/64 100 01/14/20 03:28 98.7 F 101 H 16 134/61 98 Weight Admit Weight 172 lb 3.2 oz Weight 172 lb 3.2 oz I&O: 01/13/20 01/14/20 01/15/20 06:59 06:59 06:59 Intake Total 1960 3147 Output Total 2250 7301 400 Balance -119 -2973 -469 Result Diagrams: 01/14/20 04:33 01/14/20 04:33 Hospitalist ROS - Medication Medications: Active Medications Generic Name Dose Route Start Last Admin Trade Name Freq PRN Reason Stop Dose Admin Acetaminophen 650 mg 01/05/20 20:31 01/14/20 12:05 Acetaminophen 325 Mg Tab PO 650 mg Q4H PRN Administration Headache/Fever/Mild Pain (1-3) Hydrocodone Bitart/Acetaminophen 1 tab 01/06/20 19:54 01/09/20 07:57 Hydrocodone/Acetaminophen 5/325 Mg Tablet PO 1 tab Q4H PRN Administration Moderate Pain (4-6) Amlodipine Besylate 5 mg 01/11/20 09:00 01/14/20 07:50 Amlodipine 5 Mg Tab PO 5 mg DAILY NAA Administration Cinacalcet 30 mg 01/14/20 08:00 01/14/20 07:50 Cinacalcet Hcl 30 Mg Tab PO 30 mg QAM- ANA Administration Famotidine 20 mg 01/09/20 09:00 01/14/20 07:51 Famotidine 20 Mg Tab PO 20 mg DAILY ANA Administration Sodium Chloride 1,000 mls @ 250 mls/hr 01/11/20 18:15 01/14/20 11:24 Normal Saline 0.9% IV 1,000 mls .Q4H ANA Administration Oxybutynin Chloride 5 mg 01/07/20 12:19 01/14/20 07:51 Oxybutynin 5 Mg Tab PO 5 mg TID PRN Administration Bladder Spasms Sodium Chloride 10 ml 01/06/20 09:00 01/14/20 07:49 Flush - Normal Saline 10 Ml Syringe IVF Not Given Q12HR ANA Sodium Chloride 10 ml 01/06/20 08:15 01/08/20 11:40 Flush - Normal Saline 10 Ml Syringe IVF 10 ml PRN PRN Administration Saline Flush Tamsulosin HCl 0.4 mg 01/09/20 09:00 01/14/20 07:51 Tamsulosin Hcl 0.4 Mg Cap PO 0.4 mg DAILY ANA Administration Throat Lozenges 1 lorena 01/07/20 23:30 01/08/20 08:35 Cepastat Lozenges 1 Lorena PO 1 lorena Q2H PRN Administration Sore Throat - Exam General Appearance: awake alert ENT: normocephalic atraumatic Neck: supple, no JVD Heart: RRR, no rubs Respiratory: no tachypnea Extremities: no cyanosis, no clubbing Neurological: cranial nerve grossly intact, no focal deficits Hosp A/P (1) JOSHUA (acute kidney injury) Code(s): N17.9 - ACUTE KIDNEY FAILURE, UNSPECIFIED Status: Acute (2) Obstructive uropathy Code(s): N13.9 - OBSTRUCTIVE AND REFLUX UROPATHY, UNSPECIFIED Status: Acute (3) Bilateral kidney stones Code(s): N20.0 - CALCULUS OF KIDNEY Status: Acute (4) Hypercalcemia Code(s): E83.52 - HYPERCALCEMIA Status: Acute (5) UTI (urinary tract infection) Status: Acute Qualifiers: Urinary tract infection type: acute cystitis Hematuria presence: without hematuria Qualified Code(s): N30.00 - Acute cystitis without hematuria (6) Hyperparathyroidism Code(s): E21.3 - HYPERPARATHYROIDISM, UNSPECIFIED Status: Acute (7) Primary hyperparathyroidism Code(s): E21.0 - PRIMARY HYPERPARATHYROIDISM Status: Acute - Plan The patient symptoms are likely due to hypercalcemia induced by primary hyperparathyroidism. The condition has caused bilateral kidney stones causing urinary obstruction with bilateral hydronephrosis and acute renal failure. Status post bilateral ureteric stent placement. Repeat ultrasound showed improved hydronephrosis. Kidney function is improving. The patient remains on IV fluids. Calcium level has also improved since admission. The patient does meet the criteria for parathyroidectomy once her acute condition has improved. This was discussed with Dr. Jose Alejandro Carrillo who will schedule the patient for outpatient follow-up. The patient is having fevers and tachycardia. Change antibiotics to IV Zosyn, check urine culture and blood cultures. CT scan of the neck with parathyroid protocol revealed evidence of adenoma.
[2020-01-14 13:39] LABS: Bilirubin Negative (Negative); Blood, Urine 2+ (Negative); Clarity Clear (Clear); Glucose, Urine (Dipstick) 30 mg/dL (Negative); Ketone, Urine Negative (Negative); Leukocyte 250 Leu/uL (Negative); Nitrite Negative (Negative); Protein, Urine (Dipstick) Negative (Neg-Trace); RBC/HPF 21-50 HPF (0-3); Specific Gravity, Urine 1.011 (1.002-1.036); Squamous Epithelial 0-3 HPF (0-3); Urobilinogen Normal mg/dL (Less than 2)
[2020-01-14 13:47] LABS: Bacteria/HPF None Seen HPF (None Seen)
[2020-01-14 13:48] LABS: Urine Culture Reflex Yes Yes
[2020-01-14] MEDS: Piperacillin/Tazobactam 3.375 GM in Sodium Chloride 0.9% 100 ML IVPB SCH (17:25)
[2020-01-15] MEDS: Piperacillin/Tazobactam 3.375 GM in Sodium Chloride 0.9% 100 ML IVPB SCH ×4 (00:16→19:00)
[2020-01-15] MEDS: Sodium Chloride 0.9% 1,000 ML IV SCH ×5 (00:17→19:02)
[2020-01-15] MEDS: Famotidine 20 MG TAB PO SCH (08:15)
[2020-01-15] MEDS: Tamsulosin HCl 0.4 MG CAP PO SCH (08:15)
[2020-01-15] MEDS: Cinacalcet HCl 30 MG TAB PO SCH (08:15)
[2020-01-15] MEDS: Amlodipine 5 MG TAB PO SCH (08:15)
[2020-01-15] MEDS: HYDROcodone/Acetaminophen 5/325 mg Tablet PO PRN (08:16)
[2020-01-15] MEDS: Oxybutynin 5 MG TAB PO PRN ×2 (08:16→15:48)
[2020-01-15 09:25] LABS: Albumin 3.2 g/dL (3.5-5.0); Anion Gap 12 mmol/L (10-20); BUN (Urea Nitrogen) 10 mg/dL (9.8-20.1); BUN/Creatinine Ratio 5.85; Calc. Creatinine Clearance 46 mL/min (70-130); Carbon Dioxide 16 mmol/L (22-29); Chloride 118 mmol/L (98-107); Glucose 91 mg/dL (70-105); Phosphorus 1.3 mg/dL (2.3-4.7); Sodium 142 mmol/L (136-145)
[2020-01-15] MEDS: PHOS-NAK 1 PKT PACK PO SCH ×3 (10:43→19:01)
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
--- NOTE | 2020-01-15 14:23 | PDOC.HOSPP ---
- Subjective Encounter Date: 01/15/20 - Objective Vital Signs & Weight: Vital Signs (12 hours) Temp Pulse Resp BP BP Pulse Ox 01/15/20 11:55 98.4 F 96 16 121/59 L 96 01/15/20 08:16 100 01/15/20 08:15 111 H 01/15/20 07:56 98.4 F 103 H 16 133/79 100 01/15/20 03:50 98.8 F 104 H 16 139/69 99 Weight Admit Weight 172 lb 3.2 oz Weight 172 lb 3.2 oz I&O: 01/14/20 01/15/20 01/16/20 06:59 06:59 06:59 Intake Total 3147 4204 Output Total 5000 3900 Balance -1853 304 Result Diagrams: 01/14/20 04:33 01/15/20 08:33 Hospitalist ROS - Medication Medications: Active Medications Generic Name Dose Route Start Last Admin Trade Name Freq PRN Reason Stop Dose Admin Acetaminophen 650 mg 01/05/20 20:31 01/14/20 20:21 Acetaminophen 325 Mg Tab PO 650 mg Q4H PRN Administration Headache/Fever/Mild Pain (1-3) Hydrocodone Bitart/Acetaminophen 1 tab 01/06/20 19:54 01/15/20 08:16 Hydrocodone/Acetaminophen 5/325 Mg Tablet PO 1 tab Q4H PRN Administration Moderate Pain (4-6) Amlodipine Besylate 5 mg 01/11/20 09:00 01/15/20 08:15 Amlodipine 5 Mg Tab PO 5 mg DAILY ANA Administration Cinacalcet 30 mg 01/14/20 08:00 01/15/20 08:15 Cinacalcet Hcl 30 Mg Tab PO 30 mg QAM- ANA Administration Famotidine 20 mg 01/09/20 09:00 01/15/20 08:15 Famotidine 20 Mg Tab PO 20 mg DAILY ANA Administration Sodium Chloride 1,000 mls @ 250 mls/hr 01/11/20 18:15 01/15/20 08:17 Normal Saline 0.9% IV 1,000 mls .Q4H ANA Administration Piperacillin Sod/Tazobactam 100 mls @ 200 mls/hr 01/14/20 18:00 01/15/20 12:19 Sod 3.375 gm/ Sodium Chloride IVPB 100 mls Q6HR ANA Administration Miscellaneous Medication 1 pkt 01/15/20 10:00 01/15/20 10:43 Phos-Nak 1 Pkt Pack PO 01/15/20 18:01 1 pkt Q4H ANA Administration Oxybutynin Chloride 5 mg 01/07/20 12:19 01/15/20 08:16 Oxybutynin 5 Mg Tab PO 5 mg TID PRN Administration Bladder Spasms Sodium Chloride 10 ml 01/06/20 09:00 01/15/20 08:17 Flush - Normal Saline 10 Ml Syringe IVF Not Given Q12HR ANA Sodium Chloride 10 ml 01/06/20 08:15 01/08/20 11:40 Flush - Normal Saline 10 Ml Syringe IVF 10 ml PRN PRN Administration Saline Flush Tamsulosin HCl 0.4 mg 01/09/20 09:00 01/15/20 08:15 Tamsulosin Hcl 0.4 Mg Cap PO 0.4 mg DAILY ANA Administration Throat Lozenges 1 lorena 01/07/20 23:30 01/08/20 08:35 Cepastat Lozenges 1 Lorena PO 1 lorena Q2H PRN Administration Sore Throat - Exam General Appearance: awake alert Neck: supple, no JVD Heart: RRR Respiratory: normal chest expansion, no tachypnea Neurological: cranial nerve grossly intact, no focal deficits Hosp A/P (1) JOSHUA (acute kidney injury) Code(s): N17.9 - ACUTE KIDNEY FAILURE, UNSPECIFIED Status: Acute (2) Obstructive uropathy Code(s): N13.9 - OBSTRUCTIVE AND REFLUX UROPATHY, UNSPECIFIED Status: Acute (3) Bilateral kidney stones Code(s): N20.0 - CALCULUS OF KIDNEY Status: Acute (4) Hypercalcemia Code(s): E83.52 - HYPERCALCEMIA Status: Acute (5) UTI (urinary tract infection) Status: Acute Qualifiers: Urinary tract infection type: acute cystitis Hematuria presence: without hematuria Qualified Code(s): N30.00 - Acute cystitis without hematuria (6) Hyperparathyroidism Code(s): E21.3 - HYPERPARATHYROIDISM, UNSPECIFIED Status: Acute (7) Primary hyperparathyroidism Code(s): E21.0 - PRIMARY HYPERPARATHYROIDISM Status: Acute - Plan The patient symptoms are likely due to hypercalcemia induced by primary hyperparathyroidism. The condition has caused bilateral kidney stones causing urinary obstruction with bilateral hydronephrosis and acute renal failure. Status post bilateral ureteric stent placement. Repeat ultrasound showed improved hydronephrosis. Creatinine level slightly worsened since yesterday. Repeat BMP in the morning. Continue IV fluids. Calcium level has also improved since admission. The patient received IV zoledronic acid. The patient does meet the criteria for parathyroidectomy once her acute condition has improved. ENT consulted. No signs of sepsis related to UTI.
[2020-01-15] MEDS ORDERED: Potassium Phosphate 15 MMOL in Sodium Chloride 0.9% 250 ML 250 ML IVPB SCH (18:00)
[2020-01-15] MEDS: Sodium Bicarbonate 150 MEQ in Dextrose 5% in Water 1,000 ML IV SCH (19:02)
[2020-01-15] MEDS: Enoxaparin Sodium 40 MG/0.4 ML SYRINGE SC SCH (20:39)
[2020-01-16] MEDS: Piperacillin/Tazobactam 3.375 GM in Sodium Chloride 0.9% 100 ML IVPB SCH ×5 (01:52→23:53)
[2020-01-16 05:09] LABS: #Basophils 0.1 thou/uL (0.0-0.2); #Eosinphils 0.3 thou/uL (0.0-0.7); #Lymphocytes 2.4 thou/uL (1.20-3.40); #Monocytes 0.6 thou/uL (0.11-0.59); #Neutrophils 5.2 thou/uL (1.40-6.50); %Basophils 0.6 % (0.0-1.0); %Eosinophils 3.4 % (0.0-10.0); %Lymphocytes 27.6 % (21.0-51.0); %Neutrophils 61.4 % (42.0-75.0); Hemoglobin 8.4 g/dL (12.0-16.0); Mean Corpuscular Volume 87.2 fL (78.0-98.0); Mean Platelet Volume 7.1 fL (7.4-10.4); Platelet Count 350 thou/uL (130-400); RBC Distribution Width 15.2 % (11.5-14.5); Red Blood Cell (RBC) Count 3.13 mill/uL (4.20-5.40); White Blood Cell (WBC) Count 8.5 thou/uL (4.8-10.8)
[2020-01-16 05:27] LABS: Albumin 3.3 g/dL (3.5-5.0); Anion Gap 14 mmol/L (10-20); BUN (Urea Nitrogen) 10 mg/dL (9.8-20.1); BUN/Creatinine Ratio 5.71; Calc. Creatinine Clearance 45 mL/min (70-130); Calcium 8.6 mg/dL (7.8-10.44); Carbon Dioxide 14 mmol/L (22-29); Chloride 118 mmol/L (98-107); Glucose 102 mg/dL (70-105); Phosphorus 1.9 mg/dL (2.3-4.7); Potassium 3.5 mmol/L (3.5-5.1); Sodium 142 mmol/L (136-145)
--- NOTE | 2020-01-16 06:13 | PRG ---
DATE OF SERVICE: 01/15/2020 SUBJECTIVE: The patient noted with the following vital signs. OBJECTIVE: VITAL SIGNS: Afebrile, temperature 98.9, pulse 100, respiratory rate of 16, O2 saturation 100%, and blood pressure 143/64. HEENT: Unremarkable. CARDIOVASCULAR SYSTEM: First and second heart sounds were heard. RESPIRATORY SYSTEM: Clear to auscultation. DIGESTIVE SYSTEM: Revealed a benign abdomen with positive bowel sounds. EXTREMITIES: No peripheral edema. SKIN: No new gross rash. LYMPHATICS: No peripheral lymphadenopathy. LABORATORY INVESTIGATION: Showed a calcium of 9.0, creatinine 1.71, and bicarb of 16. IMPRESSION: 1. Metabolic acidosis. 2. Hypercalcemia, in the context of problem #3. 3. Primary hyperparathyroidism. 4. Parathyroid adenoma. PLAN: 1. The patient is currently undergoing medical management, but definitely the patient will require a surgical treatment of the parathyroid adenoma. Most likely the active parathyroid adenoma is the left superior parathyroid gland. 2. Further management to be dependent on the clinical course. Job ID: [id number]
[2020-01-16] MEDS: Cinacalcet HCl 30 MG TAB PO SCH (08:42)
[2020-01-16] MEDS: Famotidine 20 MG TAB PO SCH (08:42)
[2020-01-16] MEDS: Sodium Bicarbonate Tab 325 MG TAB PO SCH ×3 (08:42→21:52)
[2020-01-16] MEDS: Amlodipine 5 MG TAB PO SCH (08:42)
[2020-01-16] MEDS: Tamsulosin HCl 0.4 MG CAP PO SCH (08:42)
[2020-01-16] MEDS: Oxybutynin 5 MG TAB PO PRN ×2 (08:49→22:03)
[2020-01-16] MEDS ORDERED: Ergocalciferol 1.25 MG(50,000 UNITS) CAP PO SCH (10:00)
--- NOTE | 2020-01-16 13:15 | PDOC.HOSPP ---
- Subjective Encounter Date: 01/16/20 - Objective Vital Signs & Weight: Vital Signs (12 hours) Temp Pulse Resp BP BP Pulse Ox 01/16/20 11:20 98.1 F 98 16 145/70 H 100 01/16/20 08:42 103 H 01/16/20 07:28 97.9 F 102 H 16 137/73 99 01/16/20 03:49 98.8 F 94 16 136/71 98 Weight Admit Weight 172 lb 3.2 oz Weight 172 lb 3.2 oz I&O: 01/15/20 01/16/20 01/17/20 06:59 06:59 06:59 Intake Total 4204 3310 Output Total 3900 6000 259 Balance 969 -9309 -672 Result Diagrams: 01/16/20 04:23 01/16/20 04:23 Hospitalist ROS - Medication Medications: Active Medications Generic Name Dose Route Start Last Admin Trade Name Freq PRN Reason Stop Dose Admin Acetaminophen 650 mg 01/05/20 20:31 01/14/20 20:21 Acetaminophen 325 Mg Tab PO 650 mg Q4H PRN Administration Headache/Fever/Mild Pain (1-3) Hydrocodone Bitart/Acetaminophen 1 tab 01/06/20 19:54 01/15/20 08:16 Hydrocodone/Acetaminophen 5/325 Mg Tablet PO 1 tab Q4H PRN Administration Moderate Pain (4-6) Amlodipine Besylate 5 mg 01/11/20 09:00 01/16/20 08:42 Amlodipine 5 Mg Tab PO 5 mg DAILY ANA Administration Cinacalcet 30 mg 01/14/20 08:00 01/16/20 08:42 Cinacalcet Hcl 30 Mg Tab PO 30 mg QAM- ANA Administration Enoxaparin Sodium 40 mg 01/15/20 21:00 01/15/20 20:39 Enoxaparin Sodium 40 Mg/0.4 Ml Syringe SC 40 mg 2100 ANA Administration Famotidine 20 mg 01/09/20 09:00 01/16/20 08:42 Famotidine 20 Mg Tab PO 20 mg DAILY ANA Administration Piperacillin Sod/Tazobactam 100 mls @ 200 mls/hr 01/14/20 18:00 01/16/20 12:51 Sod 3.375 gm/ Sodium Chloride IVPB 100 mls Q6HR ANA Administration Sodium Bicarbonate 150 meq/ 1,150 mls @ 125 mls/hr 01/15/20 18:00 01/15/20 19:02 Dextrose/Water IV 1,150 mls INF ANA Administration Oxybutynin Chloride 5 mg 01/07/20 12:19 01/16/20 08:49 Oxybutynin 5 Mg Tab PO 5 mg TID PRN Administration Bladder Spasms Sodium Bicarbonate 1,300 mg 01/16/20 09:00 01/16/20 08:42 Sodium Bicarbonate Tab 325 Mg Tab PO 1,300 mg TID ANA Administration Sodium Chloride 10 ml 01/06/20 09:00 01/16/20 08:43 Flush - Normal Saline 10 Ml Syringe IVF Not Given Q12HR ANA Sodium Chloride 10 ml 01/06/20 08:15 01/08/20 11:40 Flush - Normal Saline 10 Ml Syringe IVF 10 ml PRN PRN Administration Saline Flush Tamsulosin HCl 0.4 mg 01/09/20 09:00 01/16/20 08:42 Tamsulosin Hcl 0.4 Mg Cap PO 0.4 mg DAILY ANA Administration Throat Lozenges 1 lorena 01/07/20 23:30 01/08/20 08:35 Cepastat Lozenges 1 Lorena PO 1 lorena Q2H PRN Administration Sore Throat - Exam General Appearance: awake alert ENT: normocephalic atraumatic Neck: supple, no JVD Heart: RRR Respiratory: normal chest expansion, no tachypnea Gastrointestinal: soft Extremities: no cyanosis Hosp A/P (1) JOSHUA (acute kidney injury) Code(s): N17.9 - ACUTE KIDNEY FAILURE, UNSPECIFIED Status: Acute (2) Obstructive uropathy Code(s): N13.9 - OBSTRUCTIVE AND REFLUX UROPATHY, UNSPECIFIED Status: Acute (3) Bilateral kidney stones Code(s): N20.0 - CALCULUS OF KIDNEY Status: Acute (4) Hypercalcemia Code(s): E83.52 - HYPERCALCEMIA Status: Acute (5) UTI (urinary tract infection) Status: Acute Qualifiers: Urinary tract infection type: acute cystitis Hematuria presence: without hematuria Qualified Code(s): N30.00 - Acute cystitis without hematuria (6) Hyperparathyroidism Code(s): E21.3 - HYPERPARATHYROIDISM, UNSPECIFIED Status: Acute (7) Primary hyperparathyroidism Code(s): E21.0 - PRIMARY HYPERPARATHYROIDISM Status: Acute - Plan The patient symptoms are likely due to hypercalcemia induced by primary hyperparathyroidism. The condition has caused bilateral kidney stones causing urinary obstruction with bilateral hydronephrosis and acute renal failure. Status post bilateral ureteric stent placement. Repeat ultrasound showed improved hydronephrosis. Creatinine level slightly worsened since yesterday. IV fluids changed to IV [place]icarbon[place] [id number] units of vitamin D was given. Repeat BMP in the morning. Hypercalcemia has now resolved. Continue Cincalcinet. The patient received IV zoledronic acid. The patient does meet the criteria for parathyroidectomy once her acute condition has improved. ENT consulted and planned for outpatient follow-up to repeat localizing scintigraphy scan prior to deciding on the surgery. Repeat UA positive for UTI. Urine culture showing growth of gram-negative rods. Awaiting final identification and sensitivity data. Continue antibiotics.
--- NOTE | 2020-01-16 16:10 | PDOC.NEPPN ---
- Subjective Encounter Date: 01/16/20 Subjective: Seen. No new problem. Denied nausea, vomiting or abdominal pain. - Objective Vital Signs & Weight: Vital Signs (12 hours) Temp Pulse Resp BP BP Pulse Ox 01/16/20 15:25 98.5 F 94 16 116/67 100 01/16/20 11:20 98.1 F 98 16 145/70 H 100 01/16/20 08:42 103 H 01/16/20 07:28 97.9 F 102 H 16 137/73 99 Weight Admit Weight 172 lb 3.2 oz Weight 172 lb 3.2 oz I&O: 01/15/20 01/16/20 01/17/20 06:59 06:59 06:59 Intake Total 4204 3310 Output Total 3900 6000 540 Balance 717 -4628 -343 Result Diagrams: 01/16/20 04:23 01/16/20 04:23 Nephrology ROS - Medication Medications: Active Medications Generic Name Dose Route Start Last Admin Trade Name Freq PRN Reason Stop Dose Admin Acetaminophen 650 mg 01/05/20 20:31 01/14/20 20:21 Acetaminophen 325 Mg Tab PO 650 mg Q4H PRN Administration Headache/Fever/Mild Pain (1-3) Hydrocodone Bitart/Acetaminophen 1 tab 01/06/20 19:54 01/15/20 08:16 Hydrocodone/Acetaminophen 5/325 Mg Tablet PO 1 tab Q4H PRN Administration Moderate Pain (4-6) Amlodipine Besylate 5 mg 01/11/20 09:00 01/16/20 08:42 Amlodipine 5 Mg Tab PO 5 mg DAILY ANA Administration Cinacalcet 30 mg 01/14/20 08:00 01/16/20 08:42 Cinacalcet Hcl 30 Mg Tab PO 30 mg QAM- ANA Administration Enoxaparin Sodium 40 mg 01/15/20 21:00 01/15/20 20:39 Enoxaparin Sodium 40 Mg/0.4 Ml Syringe SC 40 mg 2100 ANA Administration Famotidine 20 mg 01/09/20 09:00 01/16/20 08:42 Famotidine 20 Mg Tab PO 20 mg DAILY ANA Administration Piperacillin Sod/Tazobactam 100 mls @ 200 mls/hr 01/14/20 18:00 01/16/20 12:51 Sod 3.375 gm/ Sodium Chloride IVPB 100 mls Q6HR ANA Administration Sodium Bicarbonate 150 meq/ 1,150 mls @ 125 mls/hr 01/15/20 18:00 01/15/20 19:02 Dextrose/Water IV 1,150 mls INF ANA Administration Oxybutynin Chloride 5 mg 01/07/20 12:19 01/16/20 08:49 Oxybutynin 5 Mg Tab PO 5 mg TID PRN Administration Bladder Spasms Sodium Bicarbonate 1,300 mg 01/16/20 09:00 01/16/20 08:42 Sodium Bicarbonate Tab 325 Mg Tab PO 1,300 mg TID ANA Administration Sodium Chloride 10 ml 01/06/20 09:00 01/16/20 08:43 Flush - Normal Saline 10 Ml Syringe IVF Not Given Q12HR ANA Sodium Chloride 10 ml 01/06/20 08:15 01/08/20 11:40 Flush - Normal Saline 10 Ml Syringe IVF 10 ml PRN PRN Administration Saline Flush Tamsulosin HCl 0.4 mg 01/09/20 09:00 01/16/20 08:42 Tamsulosin Hcl 0.4 Mg Cap PO 0.4 mg DAILY ANA Administration Throat Lozenges 1 lorena 01/07/20 23:30 01/08/20 08:35 Cepastat Lozenges 1 Lorena PO 1 lorena Q2H PRN Administration Sore Throat - Exam General Appearance: awake alert Eye: anicteric sclera ENT: normocephalic atraumatic, moist mucosa Neck: supple Respiratory: no wheezes, no rales, no ronchi, normal chest expansion Cardiovascular: RRR Gastrointestinal: soft, non-tender, non-distended, normal bowel sounds Extremities: no cyanosis, no edema Neurological: CN's grossly intact, no focal deficits PSYCH: A&O x 3 Nephrology Results - Labs Result Diagrams: 01/16/20 04:23 01/16/20 04:23 Lab results: WBC 8.5 thou/uL (4.8-10.8) 01/16/20 04:23 Hgb 8.4 g/dL (12.0-16.0) L 01/16/20 04:23 Hct 27.3 % (36.0-47.0) L 01/16/20 04:23 MCV 87.2 fL (78.0-98.0) 01/16/20 04:23 Plt Count 350 thou/uL (130-400) 01/16/20 04:23 Neutrophils % 61.4 % (42.0-75.0) 01/16/20 04:23 Band Neuts % (Manual) 5 % (5-11) 01/14/20 04:33 Sodium 142 mmol/L (136-145) 01/16/20 04:23 Potassium 3.5 mmol/L (3.5-5.1) 01/16/20 04:23 Chloride 118 mmol/L (98-107) H 01/16/20 04:23 Carbon Dioxide 14 mmol/L (22-29) L 01/16/20 04:23 BUN 10 mg/dL (9.8-20.1) 01/16/20 04:23 Creatinine 1.75 mg/dL (0.6-1.1) H 01/16/20 04:23 Glucose 102 mg/dL (70-105) 01/16/20 04:23 Calcium 8.6 mg/dL (7.8-10.44) 01/16/20 04:23 Total Bilirubin 0.2 mg/dL (0.2-1.2) 01/06/20 05:17 AST 12 U/L (5-34) 01/06/20 05:17 ALT 8 U/L (8-55) 01/06/20 05:17 Alkaline Phosphatase 76 U/L (40-110) 01/06/20 05:17 Troponin I Less than 0.010 ng/mL (< 0.028) 01/08/20 02:08 Serum Total Protein 7.5 g/dL (6.0-8.3) 01/06/20 05:17 Albumin 3.3 g/dL (3.5-5.0) L 01/16/20 04:23 Urine Ketones Negative mg/dL (Negative) 01/14/20 13:32 Urine Blood 2+ (Negative) A 01/14/20 13:32 Urine Nitrite Negative (Negative) 01/14/20 13:32 Ur Leukocyte Esterase 250 Samuel/uL (Negative) A 01/14/20 13:32 Urine RBC 21-50 HPF (0-3) A 01/14/20 13:32 Urine WBC 7-10 HPF (0-3) A 01/14/20 13:32 Ur Squamous Epith Cells 0-3 HPF (0-3) 01/14/20 13:32 Urine Bacteria None Seen HPF (None Seen) 01/14/20 13:32 Sodium 142 mmol/L (136-145) 01/16/20 04:23 Potassium 3.5 mmol/L (3.5-5.1) 01/16/20 04:23 Chloride 118 mmol/L (98-107) H 01/16/20 04:23 Carbon Dioxide 14 mmol/L (22-29) L 01/16/20 04:23 Anion Gap 14 mmol/L (10-20) 01/16/20 04:23 BUN 10 mg/dL (9.8-20.1) 01/16/20 04:23 Creatinine 1.75 mg/dL (0.6-1.1) H 01/16/20 04:23 Glucose 102 mg/dL (70-105) 01/16/20 04:23 Calcium 8.6 mg/dL (7.8-10.44) 01/16/20 04:23 Phosphorus 1.9 mg/dL (2.3-4.7) L 01/16/20 04:23 Magnesium 1.6 mg/dL (1.6-2.6) 01/13/20 00:14 Albumin 3.3 g/dL (3.5-5.0) L 01/16/20 04:23 Nephrology AP PN - Plan JOSHUA: Due to hemodynamic factors and obstructive uropathy. Creat is now up to 1.7 after trending down to a maria luz 1.4. Creat was 1.0 in 2019. Contrast induced nephropathy is a concern given recent IV contrast CT. Hypercalcemia: Due to hyperparathyroidism. Resolved after zolendronic acid Presumed primary hyperparathyroidism. Very low urinary excretion of calcium most likely due to alkali therapy. HTN; Control acceptable. Nephrolithiasis bilaterally with obstruction and bilateral severe hydronephrosis. S/p cystoscopy, extraction of stone on the right and bilateral stent placement Metabolic acidosis. Proteinuria Anemia in CKD Left Neck swelling Plan Start sodium bicarbonate infusion and DC NS due torsening acidosis. Follow renal function and electrolytes
[2020-01-16] MEDS: Sodium Bicarbonate 150 MEQ in Dextrose 5% in Water 1,000 ML IV SCH (17:11)
[2020-01-16] MEDS: Enoxaparin Sodium 40 MG/0.4 ML SYRINGE SC SCH (21:52)
[2020-01-16] MEDS: Acetaminophen 325 MG TAB PO PRN (21:52)
[2020-01-17] MEDS: Sodium Bicarbonate 150 MEQ in Dextrose 5% in Water 1,000 ML IV SCH (03:31)
[2020-01-17 05:41] LABS: #Eosinphils 0.3 thou/uL (0.0-0.7); #Lymphocytes 2.4 thou/uL (1.20-3.40); #Monocytes 0.6 thou/uL (0.11-0.59); #Neutrophils 5.1 thou/uL (1.40-6.50); %Basophils 0.5 % (0.0-1.0); %Eosinophils 3.1 % (0.0-10.0); %Lymphocytes 28.6 % (21.0-51.0); %Monocytes 7.3 % (0.0-10.0); %Neutrophils 60.5 % (42.0-75.0); Hemoglobin 9.1 g/dL (12.0-16.0); Mean Corpuscular HGB CONC 30.9 g/dL (32.0-36.0); Mean Corpuscular Hemoglobin 27.1 pg (27.0-31.0); Mean Corpuscular Volume 87.6 fL (78.0-98.0); Platelet Count 388 thou/uL (130-400); Red Blood Cell (RBC) Count 3.38 mill/uL (4.20-5.40); White Blood Cell (WBC) Count 8.4 thou/uL (4.8-10.8)
[2020-01-17 06:02] LABS: Anion Gap 15 mmol/L (10-20); BUN (Urea Nitrogen) 7 mg/dL (9.8-20.1); Calc. Creatinine Clearance 44 mL/min (70-130); Carbon Dioxide 24 mmol/L (22-29); Chloride 111 mmol/L (98-107); Glucose 109 mg/dL (70-105); Potassium 3.6 mmol/L (3.5-5.1); Sodium 146 mmol/L (136-145)
[2020-01-17] MEDS: Piperacillin/Tazobactam 3.375 GM in Sodium Chloride 0.9% 100 ML IVPB SCH ×3 (06:03→18:02)
[2020-01-17 08:15] LABS: Phosphorus 1.6 mg/dL (2.3-4.7)
[2020-01-17] MEDS: Amlodipine 5 MG TAB PO SCH (08:31)
[2020-01-17] MEDS: Famotidine 20 MG TAB PO SCH (08:31)
[2020-01-17] MEDS: Cinacalcet HCl 30 MG TAB PO SCH (08:31)
[2020-01-17] MEDS: Acetaminophen 325 MG TAB PO PRN ×3 (08:32→18:40)
[2020-01-17] MEDS: Tamsulosin HCl 0.4 MG CAP PO SCH (08:32)
[2020-01-17] MEDS: Oxybutynin 5 MG TAB PO PRN ×3 (08:32→20:57)
[2020-01-17] MEDS: Sodium Bicarbonate Tab 325 MG TAB PO SCH ×3 (08:32→20:56)
[2020-01-17 09:09] LABS: Creatinine, Urine 32.53 mg/dL (47-110)
[2020-01-17] MEDS ORDERED: Potassium Phosphate 30 MMOL in Sodium Chloride 0.9% 250 ML 250 ML IVPB SCH (09:30)
--- NOTE | 2020-01-17 09:49 | PDOC.NEPPN ---
- Subjective Encounter Date: 01/17/20 Encounter Time: 09:45 Subjective: Seen ans examined. No new problem - Objective Vital Signs & Weight: Vital Signs (12 hours) Temp Pulse Resp BP BP Pulse Ox 01/17/20 08:31 95 01/17/20 07:24 98.5 F 95 18 155/75 H 99 01/17/20 04:46 98.5 F 87 20 121/68 100 01/17/20 00:00 98.7 F 91 28 H 126/65 98 Weight Admit Weight 172 lb 3.2 oz Weight 172 lb 3.2 oz I&O: 01/16/20 01/17/20 01/18/20 06:59 06:59 06:59 Intake Total 3310 4640 Output Total 6000 3100 150 Balance -2690 1540 -150 Result Diagrams: 01/17/20 05:21 01/17/20 05:21 Nephrology ROS - Medication Medications: Active Medications Generic Name Dose Route Start Last Admin Trade Name Freq PRN Reason Stop Dose Admin Acetaminophen 650 mg 01/05/20 20:31 01/17/20 08:32 Acetaminophen 325 Mg Tab PO 650 mg Q4H PRN Administration Headache/Fever/Mild Pain (1-3) Amlodipine Besylate 5 mg 01/11/20 09:00 01/17/20 08:31 Amlodipine 5 Mg Tab PO 5 mg DAILY ANA Administration Enoxaparin Sodium 40 mg 01/15/20 21:00 01/16/20 21:52 Enoxaparin Sodium 40 Mg/0.4 Ml Syringe SC 40 mg 2100 ANA Administration Famotidine 20 mg 01/09/20 09:00 01/17/20 08:31 Famotidine 20 Mg Tab PO 20 mg DAILY ANA Administration Piperacillin Sod/Tazobactam 100 mls @ 200 mls/hr 01/14/20 18:00 01/17/20 06:03 Sod 3.375 gm/ Sodium Chloride IVPB 100 mls Q6HR ANA Administration Sodium Bicarbonate 150 meq/ 1,150 mls @ 125 mls/hr 01/15/20 18:00 01/17/20 03:31 Dextrose/Water IV 1,150 mls INF ANA Administration Oxybutynin Chloride 5 mg 01/07/20 12:19 01/17/20 08:32 Oxybutynin 5 Mg Tab PO 5 mg TID PRN Administration Bladder Spasms Sodium Bicarbonate 1,300 mg 01/16/20 09:00 01/17/20 08:32 Sodium Bicarbonate Tab 325 Mg Tab PO 1,300 mg TID ANA Administration Sodium Chloride 10 ml 01/06/20 09:00 01/17/20 08:31 Flush - Normal Saline 10 Ml Syringe IVF Not Given Q12HR ANA Sodium Chloride 10 ml 01/06/20 08:15 01/16/20 17:12 Flush - Normal Saline 10 Ml Syringe IVF 10 ml PRN PRN Administration Saline Flush Tamsulosin HCl 0.4 mg 01/09/20 09:00 01/17/20 08:32 Tamsulosin Hcl 0.4 Mg Cap PO 0.4 mg DAILY ANA Administration Throat Lozenges 1 lorena 01/07/20 23:30 01/08/20 08:35 Cepastat Lozenges 1 Lorena PO 1 lorena Q2H PRN Administration Sore Throat - Exam General Appearance: awake alert Eye: anicteric sclera ENT: normocephalic atraumatic, moist mucosa Neck: supple, symmetric, no JVD Respiratory: CTAB Cardiovascular: RRR Gastrointestinal: soft, non-tender, non-distended, normal bowel sounds Extremities: no cyanosis Neurological: CN's grossly intact PSYCH: A&O x 3 Nephrology Results - Labs Result Diagrams: 01/17/20 05:21 01/17/20 05:21 Lab results: WBC 8.4 thou/uL (4.8-10.8) 01/17/20 05:21 Hgb 9.1 g/dL (12.0-16.0) L 01/17/20 05:21 Hct 29.6 % (36.0-47.0) L 01/17/20 05:21 MCV 87.6 fL (78.0-98.0) 01/17/20 05:21 Plt Count 388 thou/uL (130-400) 01/17/20 05:21 Neutrophils % 60.5 % (42.0-75.0) 01/17/20 05:21 Band Neuts % (Manual) 5 % (5-11) 01/14/20 04:33 Sodium 146 mmol/L (136-145) H 01/17/20 05:21 Potassium 3.6 mmol/L (3.5-5.1) 01/17/20 05:21 Chloride 111 mmol/L (98-107) H 01/17/20 05:21 Carbon Dioxide 24 mmol/L (22-29) 01/17/20 05:21 BUN 7 mg/dL (9.8-20.1) L 01/17/20 05:21 Creatinine 1.80 mg/dL (0.6-1.1) H 01/17/20 05:21 Glucose 109 mg/dL (70-105) H 01/17/20 05:21 Calcium 9.0 mg/dL (7.8-10.44) 01/17/20 05:21 Total Bilirubin 0.2 mg/dL (0.2-1.2) 01/06/20 05:17 AST 12 U/L (5-34) 01/06/20 05:17 ALT 8 U/L (8-55) 01/06/20 05:17 Alkaline Phosphatase 76 U/L (40-110) 01/06/20 05:17 Troponin I Less than 0.010 ng/mL (< 0.028) 01/08/20 02:08 Serum Total Protein 7.5 g/dL (6.0-8.3) 01/06/20 05:17 Albumin 3.3 g/dL (3.5-5.0) L 01/16/20 04:23 Urine Ketones Negative mg/dL (Negative) 01/14/20 13:32 Urine Blood 2+ (Negative) A 01/14/20 13:32 Urine Nitrite Negative (Negative) 01/14/20 13:32 Ur Leukocyte Esterase 250 Samuel/uL (Negative) A 01/14/20 13:32 Urine RBC 21-50 HPF (0-3) A 01/14/20 13:32 Urine WBC 7-10 HPF (0-3) A 01/14/20 13:32 Ur Squamous Epith Cells 0-3 HPF (0-3) 01/14/20 13:32 Urine Bacteria None Seen HPF (None Seen) 01/14/20 13:32 Sodium 146 mmol/L (136-145) H 01/17/20 05:21 Potassium 3.6 mmol/L (3.5-5.1) 01/17/20 05:21 Chloride 111 mmol/L (98-107) H 01/17/20 05:21 Carbon Dioxide 24 mmol/L (22-29) 01/17/20 05:21 Anion Gap 15 mmol/L (10-20) 01/17/20 05:21 BUN 7 mg/dL (9.8-20.1) L 01/17/20 05:21 Creatinine 1.80 mg/dL (0.6-1.1) H 01/17/20 05:21 Glucose 109 mg/dL (70-105) H 01/17/20 05:21 Calcium 9.0 mg/dL (7.8-10.44) 01/17/20 05:21 Phosphorus 1.6 mg/dL (2.3-4.7) L 01/17/20 05:21 Magnesium 1.6 mg/dL (1.6-2.6) 01/13/20 00:14 Albumin 3.3 g/dL (3.5-5.0) L 01/16/20 04:23 Nephrology AP PN - Plan JOSHUA: Due to hemodynamic factors and obstructive uropathy. Creat fairly stable today at 1.8. after trending down to a maria luz 1.4. Creat was 1.0 in 2019. Hypercalcemia: Due to hyperparathyroidism. Resolved after zolendronic acid Presumed primary hyperparathyroidism. Very low urinary excretion of calcium most likely due to alkali therapy. HTN Control acceptable. Nephrolithiasis bilaterally with obstruction and bilateral severe hydrone phrosis. S/p cystoscopy, extraction of stone on the right and bilateral stent placement Metabolic acidosis. Proteinuria Anemia in CKD Left Neck swelling Plan [place] oral fluid intake advised Stop sodium bicarbonate infusion Continue oral sodium bicarbonate DC Sensipar Follow renal function and electrolytes If renal function and calcium are stable by tomorrow while on oral intake, patient can be discharged from nephrology point of view, Outpatient follow up in 2 weeks recommended with repeat labs Patient with no insurance will health social work professor help.
--- NOTE | 2020-01-17 14:17 | PDOC.HOSPP ---
- Subjective Encounter Date: 01/17/20 Subjective: The patient feels better and has no new complaints today. - Objective Vital Signs & Weight: Vital Signs (12 hours) Temp Pulse Resp BP BP Pulse Ox 01/17/20 11:08 98.2 F 109 H 16 129/61 99 01/17/20 08:31 95 01/17/20 07:24 98.5 F 95 18 155/75 H 99 01/17/20 04:46 98.5 F 87 20 121/68 100 Weight Admit Weight 172 lb 3.2 oz Weight 172 lb 3.2 oz I&O: 01/16/20 01/17/20 01/18/20 06:59 06:59 06:59 Intake Total 3310 4640 600 Output Total 6000 3100 150 Balance -2690 1540 450 Result Diagrams: 01/17/20 05:21 01/17/20 05:21 Hospitalist ROS - Medication Medications: Active Medications Generic Name Dose Route Start Last Admin Trade Name Freq PRN Reason Stop Dose Admin Acetaminophen 650 mg 01/05/20 20:31 01/17/20 08:32 Acetaminophen 325 Mg Tab PO 650 mg Q4H PRN Administration Headache/Fever/Mild Pain (1-3) Amlodipine Besylate 5 mg 01/11/20 09:00 01/17/20 08:31 Amlodipine 5 Mg Tab PO 5 mg DAILY ANA Administration Enoxaparin Sodium 40 mg 01/15/20 21:00 01/16/20 21:52 Enoxaparin Sodium 40 Mg/0.4 Ml Syringe SC 40 mg 2100 ANA Administration Famotidine 20 mg 01/09/20 09:00 01/17/20 08:31 Famotidine 20 Mg Tab PO 20 mg DAILY ANA Administration Piperacillin Sod/Tazobactam 100 mls @ 200 mls/hr 01/14/20 18:00 01/17/20 06:03 Sod 3.375 gm/ Sodium Chloride IVPB 100 mls Q6HR ANA Administration Potassium Phosphate 30 mmol/ 260 mls @ 41.7 mls/hr 01/17/20 09:30 01/17/20 09:56 Sodium Chloride IVPB 01/17/20 15:45 260 mls NOW ANA Administration Metoprolol Tartrate 12.5 mg 01/11/20 16:41 01/17/20 12:06 Metoprolol Tartrate 25 Mg Tab PO 12.5 mg BID PRN Administration To Control Heart Rate Oxybutynin Chloride 5 mg 01/07/20 12:19 01/17/20 08:32 Oxybutynin 5 Mg Tab PO 5 mg TID PRN Administration Bladder Spasms Sodium Bicarbonate 1,300 mg 01/16/20 09:00 01/17/20 08:32 Sodium Bicarbonate Tab 325 Mg Tab PO 1,300 mg TID ANA Administration Sodium Chloride 10 ml 01/06/20 09:00 01/17/20 08:31 Flush - Normal Saline 10 Ml Syringe IVF Not Given Q12HR ANA Sodium Chloride 10 ml 01/06/20 08:15 01/16/20 17:12 Flush - Normal Saline 10 Ml Syringe IVF 10 ml PRN PRN Administration Saline Flush Tamsulosin HCl 0.4 mg 01/09/20 09:00 01/17/20 08:32 Tamsulosin Hcl 0.4 Mg Cap PO 0.4 mg DAILY ANA Administration Throat Lozenges 1 lorena 01/07/20 23:30 01/08/20 08:35 Cepastat Lozenges 1 Lorena PO 1 lorena Q2H PRN Administration Sore Throat - Exam General Appearance: awake alert Neck: supple, no JVD Heart: RRR Respiratory: normal chest expansion, no tachypnea Extremities: no cyanosis, no clubbing Neurological: cranial nerve grossly intact Hosp A/P (1) JOSHUA (acute kidney injury) Code(s): N17.9 - ACUTE KIDNEY FAILURE, UNSPECIFIED Status: Acute (2) Obstructive uropathy Code(s): N13.9 - OBSTRUCTIVE AND REFLUX UROPATHY, UNSPECIFIED Status: Acute (3) Bilateral kidney stones Code(s): N20.0 - CALCULUS OF KIDNEY Status: Acute (4) Hypercalcemia Code(s): E83.52 - HYPERCALCEMIA Status: Acute (5) UTI (urinary tract infection) Status: Acute Qualifiers: Urinary tract infection type: acute cystitis Hematuria presence: without hematuria Qualified Code(s): N30.00 - Acute cystitis without hematuria (6) Hyperparathyroidism Code(s): E21.3 - HYPERPARATHYROIDISM, UNSPECIFIED Status: Acute (7) Primary hyperparathyroidism Code(s): E21.0 - PRIMARY HYPERPARATHYROIDISM Status: Acute - Plan The patient symptoms are likely due to hypercalcemia induced by primary hyperparathyroidism. The condition has caused bilateral kidney stones causing urinary obstruction with bilateral hydronephrosis and acute renal failure. Status post bilateral ureteric stent placement. Repeat ultrasound showed improved hydronephrosis. Creatinine level slightly worsened since yesterday. IV fluids changed to IV bicarbonate[place] [address] units of vitamin D was given. Repeat BMP in the morning. If creatinine level and calcium level are stable, the patient will be discharged home. Hypercalcemia has now resolved. The patient received IV zoledronic acid. The patient does meet the criteria for parathyroidectomy once her acute condition has improved. ENT consulted and planned for outpatient follow-up to repeat localizing scintigraphy scan prior to deciding on the surgery. Repeat UA positive for UTI. Urine culture showing growth of gram-negative rods. Awaiting final identification and sensitivity data. Continue antibiotics.
[2020-01-17] MEDS: Enoxaparin Sodium 40 MG/0.4 ML SYRINGE SC SCH (20:56)
[2020-01-18] MEDS: Piperacillin/Tazobactam 3.375 GM in Sodium Chloride 0.9% 100 ML IVPB SCH ×3 (01:00→12:11)
[2020-01-18] MEDS: Acetaminophen 325 MG TAB PO PRN ×2 (01:00→09:55)
[2020-01-18 05:55] LABS: #Eosinphils 0.2 thou/uL (0.0-0.7); #Lymphocytes 2.7 thou/uL (1.20-3.40); #Monocytes 0.6 thou/uL (0.11-0.59); #Neutrophils 4.1 thou/uL (1.40-6.50); %Basophils 0.5 % (0.0-1.0); %Eosinophils 2.4 % (0.0-10.0); %Lymphocytes 35.7 % (21.0-51.0); %Monocytes 8.3 % (0.0-10.0); %Neutrophils 53.1 % (42.0-75.0); Hemoglobin 9.4 g/dL (12.0-16.0); Mean Corpuscular HGB CONC 31.5 g/dL (32.0-36.0); Mean Corpuscular Hemoglobin 27.4 pg (27.0-31.0); Mean Corpuscular Volume 86.9 fL (78.0-98.0); Mean Platelet Volume 6.7 fL (7.4-10.4); Platelet Count 422 thou/uL (130-400); RBC Distribution Width 14.7 % (11.5-14.5); Red Blood Cell (RBC) Count 3.42 mill/uL (4.20-5.40); White Blood Cell (WBC) Count 7.7 thou/uL (4.8-10.8)
[2020-01-18 06:13] LABS: Anion Gap 15 mmol/L (10-20); BUN (Urea Nitrogen) 7 mg/dL (9.8-20.1); Calc. Creatinine Clearance 43 mL/min (70-130); Calcium 8.5 mg/dL (7.8-10.44); Carbon Dioxide 19 mmol/L (22-29); Chloride 108 mmol/L (98-107); Glucose 100 mg/dL (70-105); Potassium 3.5 mmol/L (3.5-5.1); Sodium 138 mmol/L (136-145)
[2020-01-18 06:14] LABS: Phosphorus 2.1 mg/dL (2.3-4.7)
[2020-01-18] MEDS: Famotidine 20 MG TAB PO SCH (09:54)
[2020-01-18] MEDS: Sodium Bicarbonate Tab 325 MG TAB PO SCH (09:54)
[2020-01-18] MEDS: Amlodipine 5 MG TAB PO SCH (09:54)
[2020-01-18] MEDS: Oxybutynin 5 MG TAB PO PRN (09:55)
[2020-01-18] MEDS: Tamsulosin HCl 0.4 MG CAP PO SCH (09:55)
[2020-01-18 11:58] VITALS: BP 147/75; TEMP 98.5
--- NOTE | 2020-01-18 13:16 | PDOC.DS.DS ---
Provider - Provider Date of Admission: 01/05/20 20:11 Date of Discharge: 01/18/20 Admitting Provider: Meliza Zhao MD Primary Care Physician: Josefa Weeks Course - Hospital Course Hospital Course: The patient is a 54-year-old female with past medical history of hyperparathyroidism and hypertension who was admitted to the hospital with hypercalcemia and acute renal failure. Initial work-up also revealed presence of UTI and bilateral urinary obstruction due to kidney stones. Management with IV fluids and antibiotics was initiated and urology consulted. Her kidney function started to improve after placement of bilateral ureteric stents which led to improvement in the hydronephrosis. Parathyroid scan nuclear study did not show a localized adenoma, however, CT scan of the neck revealed oval soft tissue density superior and posterior to the left lobe of the thyroid gland suggestive of parathyroid adenoma. ENT were consulted and they recommended outp atient follow-up to repeat a localizing study. The patient received zoledronic acid on 01/12 and is due for another dose after 1 month. Outpatient follow-up with nephrology, ENT and urology was recommended. Resuscitation Status: 01/05/20 20:31 Resuscitation Status Routine Resuscitation Status: FULL: Full Resuscitation - Labs Lab Results: 01/18/20 05:47 01/18/20 05:47 Abnormal Lab Results - Last 48 hrs 01/13/20 04:29: CA 19-9 Antigen 40 H 01/17/20 05:21: Sodium 146 H, Chloride 111 H, BUN 7 L, Creatinine 1.80 H 01/17/20 05:21: RBC 3.38 L, Hgb 9.1 L, Hct 29.6 L, MCHC 30.9 L, RDW 15.0 H, MPV 7.0 L, Monocytes # 0.6 H 01/17/20 05:21: Phosphorus 1.6 L 01/17/20 08:35: Urine Creatinine 32.53 L 01/18/20 05:47: Chloride 108 H, Carbon Dioxide 19 L, BUN 7 L, Creatinine 1.82 H 01/18/20 05:47: RBC 3.42 L, Hgb 9.4 L, Hct 29.7 L, MCHC 31.5 L, RDW 14.7 H, Plt Count 422 H, MPV 6.7 L, Monocytes # 0.6 H 01/18/20 05:47: Phosphorus 2.1 L Microbiology - Entire Visit 01/14/20 12:59 Venous blood - Left Arm Blood Culture - Preliminary NO GROWTH AT 48 HOURS 01/14/20 12:59 Venous blood - Left Hand Blood Culture - Preliminary NO GROWTH AT 48 HOURS 01/14/20 13:47 Urine voided Urine Culture - Final Gram Negative Luis Antonio 01/08/20 13:11 Venous blood - Left Hand Blood Culture - Final NO GROWTH IN 5 DAYS 01/08/20 13:11 Venous blood - Right Arm Blood Culture - Final NO GROWTH IN 5 DAYS 01/08/20 16:46 Urine clean catch Urine Culture - Final NO GROWTH AT 48 HOURS - Physical Exam Vitals: Vital Signs (12 hours) Temp Pulse Resp BP BP Pulse Ox 01/18/20 11:09 98.5 F 109 H 20 147/75 H 95 01/18/20 09:54 96 01/18/20 07:20 100 01/18/20 07:10 98.6 F 96 16 124/66 100 01/18/20 04:00 98.9 F 101 H 16 121/58 L 98 Weight Admit Weight 172 lb 3.2 oz Weight 172 lb 3.2 oz Physical Exam: The patient was seen and examined on the day of discharge. Problem - Problem (1) JOSHUA (acute kidney injury) Code(s): N17.9 - ACUTE KIDNEY FAILURE, UNSPECIFIED Status: Acute (2) Obstructive uropathy Code(s): N13.9 - OBSTRUCTIVE AND REFLUX UROPATHY, UNSPECIFIED Status: Acute (3) Bilateral kidney stones Code(s): N20.0 - CALCULUS OF KIDNEY Status: Acute (4) Hypercalcemia Code(s): E83.52 - HYPERCALCEMIA Status: Acute (5) UTI (urinary tract infection) Status: Acute Qualifiers: Urinary tract infection type: acute cystitis Hematuria presence: without hematuria Qualified Code(s): N30.00 - Acute cystitis without hematuria (6) Hyperparathyroidism Code(s): E21.3 - HYPERPARATHYROIDISM, UNSPECIFIED Status: Acute (7) Primary hyperparathyroidism Code(s): E21.0 - PRIMARY HYPERPARATHYROIDISM Status: Acute - Time spent with Patient (mins): 40 Plan - Discharge Medications Prescriptions: Tamsulosin HCl [Flomax] 0.4 mg PO DAILY #30 cap Amlodipine [Norvasc] 1 tab PO DAILY #30 tab Sodium Bicarbonate 650 mg PO TID #90 tablet Home Medications: Medication Instructions Recorded Confirmed Type Amlodipine [Norvasc] 1 tab PO DAILY #30 tab 01/18/20 Rx Sodium Bicarbonate 650 mg PO TID #90 tablet 01/18/20 Rx Tamsulosin HCl [Flomax] 0.4 mg PO DAILY #30 cap 01/18/20 Rx Allergies: No Known Allergies Allergy (Verified 01/05/20 23:02) - Follow up Plan Referrals: Antoni Doll MD [Active] - 14 Days (IT IS IMPERATIVE THAT A FOLLOWUP APPOINTMENT IS MADE TO REMOVE THE STENT. IF THE STENT IS LEFT IN IT CAN LEAD TO SEVERE KIDNEY IMPAIRMENT, DAMAGE, OR EVEN LOSS OF THE KIDNEY!!!! AND DIALYSIS. ) Josefa Weeks MD [Primary Care Provider] - Jose Alejandro Carrillo MD [Active] - Disposition: HOME Quality - Care Measures CORE MEASURES:: N/A
[2020-01-18 17:36] LABS: CA Oxalate Dihydrate 40 % (.); CA Oxalate Monohydrate 50 % (.); Color Tan (.); Stone Weight 17 mg (.)
--- NOTE | 2020-01-18 20:12 | PDOC.NEPPN ---
- Subjective Encounter Date: 01/18/20 Subjective: Seen. No new problem. No nausea, vomiting, fever or flank pain. - Objective Vital Signs & Weight: Vital Signs (12 hours) Temp Pulse Resp BP Pulse Ox 01/18/20 11:09 98.5 F 109 H 20 147/75 H 95 01/18/20 09:54 96 Weight Admit Weight 172 lb 3.2 oz Weight 172 lb 3.2 oz I&O: 01/17/20 01/18/20 01/19/20 06:59 06:59 06:59 Intake Total 4640 3000 600 Output Total 3100 3750 Balance 1540 -750 600 Result Diagrams: 01/18/20 05:47 01/18/20 05:47 - Exam General Appearance: awake alert Eye: anicteric sclera ENT: normocephalic atraumatic, moist mucosa Neck: supple, no JVD Respiratory: CTAB Cardiovascular: RRR Gastrointestinal: soft, non-tender, non-distended, normal bowel sounds Extremities: no cyanosis Neurological: CN's grossly intact PSYCH: A&O x 3 Nephrology Results - Labs Result Diagrams: 01/18/20 05:47 01/18/20 05:47 Lab results: WBC 7.7 thou/uL (4.8-10.8) 01/18/20 05:47 Hgb 9.4 g/dL (12.0-16.0) L 01/18/20 05:47 Hct 29.7 % (36.0-47.0) L 01/18/20 05:47 MCV 86.9 fL (78.0-98.0) 01/18/20 05:47 Plt Count 422 thou/uL (130-400) H 01/18/20 05:47 Neutrophils % 53.1 % (42.0-75.0) 01/18/20 05:47 Band Neuts % (Manual) 5 % (5-11) 01/14/20 04:33 Sodium 138 mmol/L (136-145) 01/18/20 05:47 Potassium 3.5 mmol/L (3.5-5.1) 01/18/20 05:47 Chloride 108 mmol/L (98-107) H 01/18/20 05:47 Carbon Dioxide 19 mmol/L (22-29) L 01/18/20 05:47 BUN 7 mg/dL (9.8-20.1) L 01/18/20 05:47 Creatinine 1.82 mg/dL (0.6-1.1) H 01/18/20 05:47 Glucose 100 mg/dL (70-105) 01/18/20 05:47 Calcium 8.5 mg/dL (7.8-10.44) 01/18/20 05:47 Total Bilirubin 0.2 mg/dL (0.2-1.2) 01/06/20 05:17 AST 12 U/L (5-34) 01/06/20 05:17 ALT 8 U/L (8-55) 01/06/20 05:17 Alkaline Phosphatase 76 U/L (40-110) 01/06/20 05:17 Troponin I Less than 0.010 ng/mL (< 0.028) 01/08/20 02:08 Serum Total Protein 7.5 g/dL (6.0-8.3) 01/06/20 05:17 Albumin 3.3 g/dL (3.5-5.0) L 01/16/20 04:23 Urine Ketones Negative mg/dL (Negative) 01/14/20 13:32 Urine Blood 2+ (Negative) A 01/14/20 13:32 Urine Nitrite Negative (Negative) 01/14/20 13:32 Ur Leukocyte Esterase 250 Samuel/uL (Negative) A 01/14/20 13:32 Urine RBC 21-50 HPF (0-3) A 01/14/20 13:32 Urine WBC 7-10 HPF (0-3) A 01/14/20 13:32 Ur Squamous Epith Cells 0-3 HPF (0-3) 01/14/20 13:32 Urine Bacteria None Seen HPF (None Seen) 01/14/20 13:32 Sodium 138 mmol/L (136-145) 01/18/20 05:47 Potassium 3.5 mmol/L (3.5-5.1) 01/18/20 05:47 Chloride 108 mmol/L (98-107) H 01/18/20 05:47 Carbon Dioxide 19 mmol/L (22-29) L 01/18/20 05:47 Anion Gap 15 mmol/L (10-20) 01/18/20 05:47 BUN 7 mg/dL (9.8-20.1) L 01/18/20 05:47 Creatinine 1.82 mg/dL (0.6-1.1) H 01/18/20 05:47 Glucose 100 mg/dL (70-105) 01/18/20 05:47 Calcium 8.5 mg/dL (7.8-10.44) 01/18/20 05:47 Phosphorus 2.1 mg/dL (2.3-4.7) L 01/18/20 05:47 Magnesium 1.6 mg/dL (1.6-2.6) 01/13/20 00:14 Albumin 3.3 g/dL (3.5-5.0) L 01/16/20 04:23 Nephrology AP PN - Plan JOSHUA: Due to hemodynamic factors and obstructive uropathy. Creat fairly stable today at 1.8 even with discontinuation of IVF. Hypercalcemia: Due to hyperparathyroidism. Resolved after zolendronic acid Presumed primary hyperparathyroidism. Very low urinary excretion of calcium most likely due to alkali therapy. HTN Control acceptable. Nephrolithiasis bilaterally with obstruction and bilateral severe hydronephrosis. S/p cystoscopy, extraction of stone on the right and bilateral stent placement Metabolic acidosis. Proteinuria Anemia in CKD Left Neck swelling Plan [place] oral fluid intake advised Continue oral sodium bicarbonate Can be discharged from nephrology point of view. Follow up with repeat labs in 2 weeks 02/01/2000 at 10:30 am
--- NOTE | 2020-01-19 22:47 | PQF ---
CLINICAL DOCUMENTATION CLARIFICATION FORM: Dear : Ean Little MD Date / Time: 01/19/2020 Please exercise your independent, professional judgment in responding to the clarification form. Clinical indicators are provided on the bottom of this form for your review Please check appropriate box(es): [ ] Sepsis due to: [ >] Severe sepsis with associated acute organ dysfunction: [ > ] Acute Respiratory Failure [ ] Acute Kidney injury w/o ATN [ ] Acute Kidney Injury w ATN [ ] Encephalopathy (metabolic) (septic) [ ] Disseminated Intravascular Coagulopathy (DIC) [ ] Hepatic Failure [ ] Additional/Other: please specify: [ ] Septic Shock [ ] Localized infection without sepsis [ ] SIRS due to non-infectious process (please specify etiology) [ ] with organ dysfunction [ ] without organ dysfunction [ ] Other diagnosis (Please specify if any) [ ] Unable to determine In addition, please specify: Present on Admission (POA): [ > ] Yes [ ] No [ ] Unable to determine Physician Signature: Date/Time: For continuity of documentation, please document condition throughout progress notes and discharge summary. Thank You. To be completed by CDI/Coding staff for physician review: Present Clinical Indicators - Signs / Symptoms / Labs Results and Location in Medical Record [ ] Altered mental status, increased confusion, obtunded [x] Fever or hypothermia (<96.8 F/36 C or > 100.4 F/38C) Temp-100.6 Vitals on 01/13 [x] Respiratory rate >20/min, hypoxemia, and or hypercapnia RR-28 vitals on 01/15 [x] Heart Rate/Tachycardia (>90 bpm), SBP<100mmHg 121 Vitals on 01/13 [x] SIRS/Sepsis -possibly from UTI Hospitalist PN on 01/07 [x] Metabolic acidosis Consult on 01/05 [x] Oliguria , increase BUN/Cr, decreased GFR, elevated liver enzymes Cr-3.28 Laboratory on 01/05, BUN-31 laboratory on 01/07 [x] Sepsis from UTI, JOSHUA Hospitalist PN on 01/08,01/09,01/10 [x] No signs of sepsis related to UTI Hospitalist PN on 01/12,01/14 [x] WBC count (>12,000/mm^4 or <4000/mm^3 or 70% neuts, 10% bands) WBC-14.7 Laboratory on 01/05 [x] Presumed sepsis, given tachycardia and leukocytosis. Most likely related to possible UTI Consult on 01/05 [ ] Positive blood cultures Present Risk Factors Results and Location in Medical Record [ ] Infection/Bacteremia [x] Pneumonia, UTI, infected wound, gangrenous gall bladder Diabetes or Cancer ED provider report on 01/04 [ ] Surgery / surgical instrumentation / trauma Ruptured/perforated bowel, ruptured appendix [ ] Immunosuppression [ ] Advancing Age Present Treatments Results and Location in Medical Record [x] Septic workup and clear urine cultures H&P on 01/05 [ ] Daily CBC, blood/sputum/wound cx [ ] ID Consult [x] Rocephin 2gm IV Medication from 01/05 to 01/09 [x] Zosyn 3.375 gm IV Medication from 01/13 to 01/17 [ ] Vasopressors, meds [ ] Consultants; ID, GI, Pulmonary, Hematology CDS/[employer] Signature: AAS Phone #: Date/Time: 01/19/2020 This is a permanent part of the Medical Record [facility]
--- NOTE | 2020-01-20 13:45 | EKG ---
Test Reason : Blood Pressure : / mmHG Vent. Rate : 098 BPM Atrial Rate : 098 BPM P-R Int : 180 ms QRS Dur : 078 ms QT Int : 334 ms P-R-T Axes : 055 -06 013 degrees QTc Int : 426 ms Normal sinus rhythm Normal ECG When compared with ECG of 08-JAN-2020 01:17, No significant change was found Confirmed by NIKOLAS MEDINA (2) on 01/20/2020 1:45:06 PM Referred By: DELVIS Confirmed By:NIKOLAS MEDINA
== END 2020-01-18 14:05 | disposition home or self-care (01) | DRG 853 ==
LOC: ERS 18:57 → ERHOLD 20:11 → 2SE 22:42
PROVIDERS: ADMIT Internal Medicine; ATTEND Internal Medicine
PROC: 0TC68ZZ Extirpation of Matter from Right Ureter, Via Natural or Artificial Opening Endoscopic (ICD-10-PCS; principal; 2020-01-07)
PROC: 0T788DZ Dilation of Bilateral Ureters with Intraluminal Device, Via Natural or Artificial Opening Endoscopic (ICD-10-PCS; 2020-01-07)
DX: A41.9 Sepsis, unspecified organism (principal); J96.00 Acute respiratory failure, unspecified whether with hypoxia or hypercapnia; N13.6 Pyonephrosis; E87.2 Acidosis; E87.0 Hyperosmolality and hypernatremia; N17.9 Acute kidney failure, unspecified; R65.20 Severe sepsis without septic shock; E83.52 Hypercalcemia; N18.30 Chronic kidney disease, stage 3 unspecified; R22.1 Localized swelling, mass and lump, neck; I12.9 Hypertensive chronic kidney disease with stage 1 through stage 4 chronic kidney disease, or unspecified chronic kidney disease; N14.1 Nephropathy induced by other drugs, medicaments and biological substances; T39.395A Adverse effect of other nonsteroidal anti-inflammatory drugs [NSAID], initial encounter; E21.0 Primary hyperparathyroidism; D36.7 Benign neoplasm of other specified sites; Z20.828 Contact with and (suspected) exposure to other viral communicable diseases; D63.1 Anemia in chronic kidney disease; J38.01 Paralysis of vocal cords and larynx, unilateral; D72.829 Elevated white blood cell count, unspecified; I44.1 Atrioventricular block, second degree; Z90.710 Acquired absence of both cervix and uterus; Z79.899 Other long term (current) drug therapy; Y92.9 Unspecified place or not applicable
CPT/HCPCS: 36415; 70492; 71045; 74176; 76000; 76770; 78072; 80048; 80053; 80069; 81001; 82306; 82340; 82365; 82378; 82436; 82570; 83735; 83883; 83970; 84100; 84133; 84156; 84165; 84166; 84300; 84484; 85025; 85027; 86301; 86304; 87040; 87086; 87635; 88300; 93005; 93010; 93306; 99285; A9500; J0630; J0696; J1100; J1650; J2405; J2543; J2704; J3010; J3475; J3489; J3490; J7050; J7070; Q9967; U0003

== ENCOUNTER 2020-02-01 06:23 | Outpatient (CLI) | payer SELFPAY ==
[2020-02-01 10:52] LABS: Bilirubin Neg (Negative); Blood, Urine 250 (Negative); Clarity Cloudy (Clear); Glucose, Urine (Dipstick) Normal (Negative); Ketone, Urine Negative (Negative); Leukocyte 500 (Negative); Nitrite Positive (Negative); Protein, Urine (Dipstick) 100 mg/dl (Neg-Trace); Specific Gravity, Urine 1.005 (1.002-1.036); Urobilinogen Normal mg/dL (Less than 2)
[2020-02-01 11:09] LABS: Mean Corpuscular HGB CONC 29.9 G/DL (32.0-36.0); Mean Corpuscular Hemoglobin 26.2 PG (27.0-33.0); Mean Corpuscular Volume 87.9 fl (80.0-100.0); Mean Platelet Volume 8.6 fl (7.4-10.4); Platelet Count 513 10x3/uL (130-400); RBC Distribution Width 15.3 % (11.5-14.5); Red Blood Cell (RBC) Count 3.81 10x6/uL (3.90-5.20); White Blood Cell (WBC) Count 7.9 10x3/uL (4.5-11.0)
[2020-02-01 11:12] LABS: Anion Gap 23 mmol/L (10-20); BUN (Urea Nitrogen) 14 mg/dL (9.8-20.1); Calc. Creatinine Clearance 0 mL/min (70-130); Calcium 11.7 mg/dL (7.8-10.44); Carbon Dioxide 20 mmol/L (22-29); Chloride 109 mmol/L (98-107); Glucose 92 mg/dL (70-105); Potassium 4.4 mmol/L (3.5-5.1); Sodium 148 mmol/L (136-145)
[2020-02-01 11:16] LABS: PTT 23.9 sec (22.0-33.0); Prothrombin Time 10.9 sec (9.5-12.1)
[2020-02-01 11:35] LABS: SARS-CoV-2 NAA Rapid Test Not Detected (NotDetected)
[2020-02-01 11:57] LABS: Bacteria/HPF 2+ HPF (None Seen); RBC/HPF 21-50 HPF (0-3); WBC/HPF Greater than 50 HPF (0-3)
== END 2020-02-01 06:24 | disposition home or self-care (01) ==
LOC: LABBT 06:23
PROVIDERS: ATTEND Urology
DX: Z01.818 Encounter for other preprocedural examination (principal); Z20.828 Contact with and (suspected) exposure to other viral communicable diseases; N13.2 Hydronephrosis with renal and ureteral calculous obstruction; E21.3 Hyperparathyroidism, unspecified; N18.31 Chronic kidney disease, stage 3a; H10.32 Unspecified acute conjunctivitis, left eye
CPT/HCPCS: 80048; 81001; 85027; 85610; 85730; 87077; 87086; 87186; 93005; 93010; U0002

== ENCOUNTER 2020-02-02 07:25 | Day surgery (SDC) | payer OTHER ==
[2020-02-01 13:44] VITALS: BMI 28.3
[2020-02-02] MEDS ORDERED: Levofloxacin 500 mg/D5W 100 ml Premix Bag ONE (09:35)
[2020-02-02] MEDS ORDERED: B & O ONE (10:30)
[2020-02-02] MEDS ORDERED: Sodium Chloride 0.9% 100 ML ONE (10:42)
[2020-02-02] MEDS ORDERED: cefTRIAXone\\ROCEPHIN 1 GM VIAL ONE (10:42)
[2020-02-02] MEDS ORDERED: Fentanyl 100 MCG/2 ML VIAL ONE ×2 (10:48→14:10)
[2020-02-02] MEDS ORDERED: Ondansetron ODT 4 MG TAB ONE (10:48)
[2020-02-02] MEDS ORDERED: Neomycin-Polymyxin 1 ML AMP ONE ×3 (11:12→11:21)
[2020-02-02] MEDS ORDERED: Lidocaine 1% PF 5 ML VIAL ONE (12:03)
[2020-02-02] MEDS ORDERED: Dexamethasone 20 MG/5 ML VIAL ONE (12:03)
[2020-02-02] MEDS ORDERED: Rocuronium Bromide 10 MG/ML (10ML VIAL) ONE (12:03)
[2020-02-02] MEDS ORDERED: PHENYLEPHRINE-NS 100 MCG/ML 10 ML SYRINGE ONE (12:03)
[2020-02-02] MEDS ORDERED: PROPOFOL 200 MG/20 ML VIAL ONE (12:03)
[2020-02-02] MEDS ORDERED: Glycopyrrolate 0.2 MG/ML 5 ML SYRINGE ONE (12:03)
[2020-02-02] MEDS ORDERED: Ondansetron PF 4 MG/2 ML Vial ONE (12:03)
--- NOTE | 2020-02-02 14:08 | OP ---
DATE OF PROCEDURE: 02/02/2020 SERVICE: Urology. PREOPERATIVE DIAGNOSIS: Hyperparathyroidism with bilateral nephrolithiasis. POSTOPERATIVE DIAGNOSIS: Hyperparathyroidism with bilateral nephrolithiasis. PROCEDURES PERFORMED: Bilateral ureteroscopy, laser lithotripsy, basket extraction of stones and placement of a 6 x 24 double-J stent on the right and 6 x 26 double-J stent on the left with strings attached to both. INDICATIONS FOR PROCEDURE: Ms. Olvera is a 54-year-old black female, who initially had presented with renal failure due to bilateral ureteral stones. She underwent urgent ureteral stenting at that time and is now presenting for definitive stone management. Risks and benefits of the surgery have been discussed and she has agreed to proceed forward. DESCRIPTION OF PROCEDURE: After identification of armband and verification of consent, the patient was brought back to the operating room, where she underwent general anesthesia with endotracheal intubation. She was then placed in dorsal lithotomy position and prepped and draped in usual sterile fashion. After appropriate time-out, a lubricated 22-Citizen [place] rigid cystoscope was introduced per urethra into the bladder, where both stents were identified. The right stent was grasped with flexible graspers and brought out to the level of urethral meatus. A 0.035 Sensor wire was advanced through the ureteral stent into the level of renal pelvis and then the stent removed and discarded. A dual-lumen catheter was attempted to be advanced over the Sensor wire, but there was resistance indicating that there may be a stone within the ureter. The dual-lumen was then removed and a semi-rigid ureteroscope brought in alongside the Sensor wire, where approximately three ureteral stones were identified on the right. All of these stones were basketed out using simple basket extraction. The ureteroscope was then used to guide a superstiff wire to the renal pelvis and then the ureteroscope removed. The Sensor wire was affixed to the drapes as a safety wire. A short Bard ureteral access sheath 12/14-Citizen [place] was advanced over the Super Stiff wire into the level of proximal ureter and the inner cannula and Super Stiff wire were removed leaving the outer sheath and Sensor wire in place as a safety wire. A flexible digital ureteroscope was then passed through into the renal pelvis, where stones were identified primarily in the upper pole and a very large stone in the lower pole. The upper pole stones were broken up using a 265 micron laser fiber and then the fragments basketed out using the Zero Tip Nitinol basket. The lower pole stone was extremely large in a difficult location and took a significant amount of time to ureteroscopy and break the stone up using the laser. Upon completion, most of the stone had been dusted given the difficult location and time already spent on this kidney, I did not want to continue to attempt to basket extraction. The stone particulate was relatively fine. I felt there was a good chance to the majority of this particulate would pass without problem. Therefore, the stones were left in situ to pass on their own. The ureter was cleared and did not demonstrate any evidence of ureteral calculi. The procedure was then repeated on the left by using graspers to bring the stent up to the level of the urethral meatus. A Sensor wire was then used to advance the wire through the ureteral stent to the renal pelvis. The stent was then removed and discarded. The Sensor wire was used to guide a dual-lumen catheter into the proximal ureter, where a Super Stiff wire was then placed through the second lumen into the renal pelvis. The dual-lumen was then removed. The Sensor wire was affixed to the drapes as a safety wire. The same ureteral access sheath was advanced up the ureter over the Super Stiff wire into the proximal ureter, the inner cannula and Super Stiff removed. The flexible ureteroscope was then passed into this side, where three additional stones were found within the midpole, upper pole, and lower pole. Laser lithotripsy was performed on all of these and then a 1.9-Citizen [place] Zero Tip basket used to remove all the fragments. Upon completion, all fragments were around 1 mm or less in size. I felt that these should pass on their own. No additional stones were found within the renal pelvis. Pull-back ureteroscopy was employed and there was a small crumbs, but no stones within the ureter. The ureteroscope and sheath were then removed. Stents were placed bilaterally with strings with a 6 x 24 double-J stent on the right and a 6 x 26 double-J stent on the left positioned fluoroscopically over Sensor wire until they were in good positioning. The bladder was then emptied. The cystoscope removed. The string was attached to the patient's thigh with Tegaderm. A B and O suppository was placed in the rectum. She was then taken out of position, awakened, taken to PACU for recovery in stable condition. COMPLICATIONS: None. ESTIMATED BLOOD LOSS: Minimal. RETAINED TUBES AND DRAINS: 6 x 24 double-J stent on the right, 6 x 26 double-J stent on the left. SPECIMENS: Stone for stone analysis. DISPOSITION: The patient will be discharged home and follow up with me in approximately 1 week. She will remove her stent on her own on Thursday. Job ID: [id number]
[2020-02-02] MEDS ORDERED: HYDROcodone/Acetaminophen 5/325 mg Tablet ONE (15:43)
[2020-02-02] MEDS ORDERED: Oxybutynin 5 MG TAB ONE (15:43)
== END 2020-02-02 16:55 | disposition home or self-care (01) ==
LOC: SDC 07:25
PROVIDERS: ATTEND Urology
PROC: 0TC38ZZ Extirpation of Matter from Right Kidney Pelvis, Via Natural or Artificial Opening Endoscopic (ICD-10-PCS; principal; 2020-02-02)
PROC: 0TC48ZZ Extirpation of Matter from Left Kidney Pelvis, Via Natural or Artificial Opening Endoscopic (ICD-10-PCS; principal; 2020-02-02)
PROC: 0T788DZ Dilation of Bilateral Ureters with Intraluminal Device, Via Natural or Artificial Opening Endoscopic (ICD-10-PCS; principal; 2020-02-02)
DX: N13.2 Hydronephrosis with renal and ureteral calculous obstruction (principal); E21.3 Hyperparathyroidism, unspecified; I12.9 Hypertensive chronic kidney disease with stage 1 through stage 4 chronic kidney disease, or unspecified chronic kidney disease; N18.31 Chronic kidney disease, stage 3a; J30.2 Other seasonal allergic rhinitis; H10.32 Unspecified acute conjunctivitis, left eye; Z79.899 Other long term (current) drug therapy
CPT/HCPCS: 76000; 82365; 88300; J0696; J1100; J1956; J2405; J2704; J3010; J3490; Q0162

== ENCOUNTER 2020-04-12 07:47 | Outpatient (CLI) | payer OTHER ==
--- NOTE | 2020-04-12 08:35 | ULT ---
Renal sonogram HISTORY: Ureteral stone. Obstruction. Follow-up. COMPARISON: 01/10/2020. FINDINGS: On today's exam, the right kidney measures up to 13.0 cm. There is severe distention of the renal collecting structures. At the inferior pole, shadowing stone measures up to 1.7 cm. Left kidney measures up to 9.5 cm without hydronephrosis or measurable stone apparent. Urinary bladder shows no focal abnormalities. With extensive monitoring, a right ureteral jet was con fidently demonstrated. Left ureteral jet never seen. IMPRESSION : Severe right hydronephrosis, increasing since the sonogram from 01/10/2020, but similar in degree to the CT scan from 01/06/2020. Large calculus at the inferior pole of the right kidney is also again demonstrated. Documentation of a right ureteral jet in the urinary bladder argues against high-grade/ complete obstruction. While left ureteral jet was unable to be documented, the absence of left hydronephrosis argues agains t significant obstruction.
== END 2020-04-12 07:48 | disposition home or self-care (01) ==
LOC: ULT 07:47
PROVIDERS: ATTEND Urology
DX: N13.2 Hydronephrosis with renal and ureteral calculous obstruction (principal); N20.0 Calculus of kidney
CPT/HCPCS: 76770